=== PATIENT | male | born 1945 | race Caucasian/White ===

== ENCOUNTER → 2017-08-12 10:24 | Outpatient (CLI) | payer MEDICARE, BC, OTHER, SELFPAY ==
[2017-08-12 12:52] LABS: AST(SGOT) 24 U/L (15-37); Alanine Aminotransfer ALT/SGPT 33 U/L (16-61); Anion Gap 7 (5-15); BUN 29 mg/dL (7-18); BUN/Creat Ratio 22.3 RATIO (10-20); Calcium,Total 9.2 mg/dL (8.5-10.1); Chloride 100 mmol/L (98-107); Cholesterol 148 mg/dL (200); EST Glomerular Filtration Rate 58 mL/min (>60); Est Glom Filt Rate - Afr Amer 70 mL/min (>60); Glucose 131 mg/dL (74-106); High Density Lipoprotein 40 mg/dL; Potassium 3.9 mmol/L (3.5-5.1); Sodium Level 138 mmol/L (136-145); Triglycerides 162 mg/dL; Very Low Density Lipoprotein 32 mg/dL (5-40)
== END ==
PROVIDERS: Family Provider Family Medicine; PCP Family Medicine; Visit Provider Family Medicine
DX: E78.5 Hyperlipidemia, unspecified (principal); I10 Essential (primary) hypertension
CPT/HCPCS: 36415; 80048; 80061; 84450; 84460

== ENCOUNTER → 2017-11-01 07:40 | Outpatient (CLI) | payer MEDICARE, BC, OTHER, SELFPAY ==
--- NOTE | 2017-11-01 09:09 | RAD_ITS ---
STUDY: X-RAY CHEST REASON FOR EXAM: Male, 72 years old. Chronic cough TECHNIQUE: PA and lateral views of the chest. COMPARISON: 12/06/2015 FINDINGS: There are interstitial fibrotic changes of the lungs. There is no demonstrated pleural abnormality. Normal size heart. Normal mediastinum and vince. Normal visualized pulmonary arteries. Normal visualized aortic arch and descending thoracic aorta. There are diffuse degenerative changes of the visualized thoracic spine. Normal visualized ribs, clavicles, and shoulders. There is no demonstrated abnormality of the visualized soft tissue structures of the upper abdomen. RAD/Chest PA and Lateral IMPRESSION: Degenerative changes, as described above. No demonstrated acute cardiopulmonary process. Electronically Signed: Ben Valderrama MD at 10:34 EDT , Service support ,
[2017-11-01 09:46] LABS: T4 Total, Thyroxin 9.9 ug/dL (4.5-12.1); Thyroid Stim Hormone (TSH) 1.94 uIU/mL (0.358-3.74)
--- NOTE | 2017-11-01 15:43 | PFTCOMP ---
COMPLETE PULMONARY FUNCTION TEST INTERPRETATION Brief HPI: Patient is a 72 year old male, currently under the care of Dr. Alba, who presents to [facility] for complete pulmonary function tests secondary to diagnosis of high-risk med use. Respiratory therapist reports good effort and reproducible results. Interpretation: Forced expiration spirometry shows no large airways obstructive ventilatory defect with an FEV1 of 84% predicted. There is no significant bronchodilator response by ATS criteria. Spirograms are of good quality and plateau slowly, indicating slowly emptying areas of the lungs. The respiratory flow volume loop shows decreased expiratory flow rates at high lung volumes consistent with small airways obstruction. Lung volumes by body plethysmography show a normal total lung capacity at 7.24 L, 116% predicted. All other lung volumes are within normal limits. Diffusion capacity by carbon monoxide is normal at 110% predicted. The airway resistance is normal. Compared to previous pulmonary function tests from 04/29/2016, there has been a significant reduction in FEV1. Impression: These pulmonary function tests are grossly within normal limits. There has been a significant decrease in FEV1 compared to previous. There are some stigmata of small airways disease.
--- NOTE | 2017-11-01 15:47 | PFTCOMP_ITS ---
COMPLETE PULMONARY FUNCTION TEST INTERPRETATION Brief HPI: Patient is a 72 year old male, currently under the care of Dr. Alba, who presents to [facility] for complete pulmonary function tests secondary to diagnosis of high-risk med use. Respiratory therapist reports good effort and reproducible results. Interpretation: Forced expiration spirometry shows no large airways obstructive ventilatory defect with an FEV1 of 84% predicted. There is no significant bronchodilator response by ATS criteria. Spirograms are of good quality and plateau slowly, indicating slowly emptying areas of the lungs. The respiratory flow volume loop shows decreased expiratory flow rates at high lung volumes consistent with small airways obstruction. Lung volumes by body plethysmography show a normal total lung capacity at 7.24 L , 116% predicted. All other lung volumes are within normal limits. Diffusion capacity by carbon monoxide is normal at 110% predicted. The airway resistance is normal. Compared to previous pulmonary function tests from 04/29/2016, there has been a significant reduction in FEV1. Impression: These pulmonary function tests are grossly within normal limits. There has been a significant decrease in FEV1 compared to previous. There are some stigmata of small airways disease.
== END ==
PROVIDERS: Family Provider Family Medicine; PCP Family Medicine; Visit Provider Internal Medicine Cardiovascular Disease
DX: I48.0 Paroxysmal atrial fibrillation (principal); Z79.899 Other long term (current) drug therapy
CPT/HCPCS: 36415; 71046; 84436; 84443; 94060; 94726; 94729

== ENCOUNTER → 2018-02-13 09:47 | Outpatient (CLI) | payer MEDICARE, BC, OTHER, SELFPAY ==
[2018-02-13 12:19] LABS: Microalbumin,Random Urine 35.9 mg/L (NO RANGE EST.); Microalbumin:Creatinine Ratio 48.5 mg/g CRE (<30 mg/g CRE)
[2018-02-13 12:26] LABS: Hemoglobin A1c 7.2 % (4.2-6.3)
[2018-02-13 12:28] LABS: AST(SGOT) 23 U/L (15-37); Alanine Aminotransfer ALT/SGPT 31 U/L (16-61); Albumin, Serum 3.5 g/dL (3.2-5.0); Alkaline Phosphatase 83 U/L (45-117); Anion Gap 7 (5-15); BUN 22 mg/dL (7-18); BUN/Creat Ratio 15.6 RATIO (10-20); Bilirubin, Direct 0.14 mg/dL (0.00-0.30); Calcium,Total 8.9 mg/dL (8.5-10.1); Chloride 102 mmol/L (98-107); Cholesterol 147 mg/dL (200); Creatinine, Serum 1.41 mg/dL (0.70-1.30); EST Glomerular Filtration Rate 53 mL/min (>60); Est Glom Filt Rate - Afr Amer 64 mL/min (>60); Globulin 3.9 g/dL (2.2-4.2); Glucose 196 mg/dL (74-106); High Density Lipoprotein 36 mg/dL; Potassium 4.2 mmol/L (3.5-5.1); Protein, Total 7.4 g/dL (6.4-8.2); Sodium Level 138 mmol/L (136-145); Triglycerides 164 mg/dL; Very Low Density Lipoprotein 33 mg/dL (5-40)
== END ==
PROVIDERS: Family Provider Family Medicine; PCP Family Medicine; Visit Provider Family Medicine
DX: E11.9 Type 2 diabetes mellitus without complications (principal); I10 Essential (primary) hypertension
CPT/HCPCS: 36415; 80048; 80061; 80076; 82043; 82570; 83036

== ENCOUNTER → 2018-08-14 10:35 | Outpatient (CLI) | payer MEDICARE, BC, OTHER, SELFPAY ==
[2018-07-04 10:01] VITALS: BMI 30.9
[2018-08-14 12:48] LABS: AST(SGOT) 27 U/L (15-37); Alanine Aminotransfer ALT/SGPT 32 U/L (16-61); Anion Gap 3 (5-15); BUN 17 mg/dL (7-18); BUN/Creat Ratio 12.8 RATIO (10-20); Calcium,Total 9.2 mg/dL (8.5-10.1); Chloride 102 mmol/L (98-107); Cholesterol 159 mg/dL (200); Creatinine, Serum 1.33 mg/dL (0.70-1.30); EST Glomerular Filtration Rate 56 mL/min (>60); Est Glom Filt Rate - Afr Amer 68 mL/min (>60); Glucose 153 mg/dL (74-106); High Density Lipoprotein 40 mg/dL; Potassium 4.3 mmol/L (3.5-5.1); Sodium Level 137 mmol/L (136-145); Triglycerides 170 mg/dL; Very Low Density Lipoprotein 34 mg/dL (5-40)
== END ==
PROVIDERS: Family Provider Family Medicine; PCP Family Medicine; Referring Provider Family Medicine; Visit Provider Family Medicine
DX: E11.9 Type 2 diabetes mellitus without complications (principal); E78.00 Pure hypercholesterolemia, unspecified
CPT/HCPCS: 36415; 80048; 80061; 83036; 84450; 84460

== ENCOUNTER → 2018-08-21 07:35 | Outpatient (CLI) | payer MEDICARE, BC, OTHER, SELFPAY ==
[2018-07-04 10:01] VITALS: BMI 30.9
--- NOTE | 2018-08-21 07:44 | CDU_ITS ---
Reason For Study: STENOSIS Rt. Velocities/BP Lt. Velocities/BP Prox CCA 44.6/10.7 cm/sec. Prox CCA 66.2/17.8 cm/sec. Mid CCA 62.9/18.7 cm/sec. Mid CCA 65.0/18.9 cm/sec. Dist CCA 44.5/18.7 cm/sec. Dist CCA 67.2/20.0 cm/sec. Prox ICA 73.9/18.7 cm/sec. Prox ICA 60.6/23.3 cm/sec. Mid ICA 55.5/19.9 cm/sec. Mid ICA 49.7/24.4 cm/sec. Dist ICA 60.4/18.7 cm/sec. Dist ICA 37.6/13.9 cm/sec. Rt. ICA/CCA = 73.9/62.9=1.2. Lt. ICA/CCA = 60.6/67.2=0.9. Prox ECA 86.2/18.6 cm/sec. Prox ECA 49.7/10.1 cm/sec. Rt. Vert. 39.8/15.6 cm/sec. Lt. Vert. 29.5/14.4 cm/sec. Right Extracranial There is heterogeneous, irregular atherosclerotic plaque noted in the right common carotid artery. There is heterogeneous, irregular atherosclerotic plaque noted in the right internal carotid artery. There is no significant atherosclerotic plaque noted in the right external carotid artery. Antegrade flow is noted in the right vertebral artery. There is heterogeneous, irregular atherosclerotic plaque noted in the left bulb. Left Extracranial There is homogeneous, smooth atherosclerotic plaque noted in the left common carotid artery. There is heterogeneous, irregular atherosclerotic plaque noted in the left internal carotid artery. There is heterogeneous, smooth atherosclerotic plaque noted in the left external carotid artery. Antegrade flow is noted in the left vertebral artery. There is heterogeneous, irregular atherosclerotic plaque noted in the left bulb. Interpretation Summary Mild (<50%) stenosis right extracranial internal carotid. Mild (<50%) stenosis left extracranial internal carotid. Flow within the vertebral arteries is antegrade bilaterally. Heterogeneous, irregular atherosclerotic plaque is noted in the carotid bulbs bilaterally, which does not appear to be hemodynamically significant. Ordering Physician: Kasey Masters Referring Physician: Kasey Masters Performed By: Francia Kee, XIOMARA, RVT
== END ==
PROVIDERS: Family Provider Family Medicine; PCP Family Medicine; Referring Provider Family Medicine; Visit Provider Family Medicine
DX: I65.21 Occlusion and stenosis of right carotid artery (principal)
CPT/HCPCS: 93880

== ENCOUNTER 2018-12-16 11:31 | Emergency (ER) | payer MEDICARE, BC, OTHER, SELFPAY ==
[2018-07-04 10:01] VITALS: BMI 30.9
[2018-12-16 11:32] VITALS: BP 105/80; PULSE 95; RESP 18; TEMP 36.6; O2SAT 98; BMI 29.7
--- NOTE | 2018-12-16 12:17 | ED.VISSUMM ---
- ER Visit Summary Date of Service: 12/16/18 Chief Complaint: Allergic reaction History of Present Illness: The patient is a 73 M who presents with possible allergic reaction that began last night. Patient states he felt his tongue and lip were swollen last night. Patient states the swelling is improved today. Patient also admits to some itching and tingling in his hands. Patient denies any hives. Patient denies any difficulty breathing or difficulty swallowing. Patient states nothing makes it better or worse. Patient did have some recent diarrhea but currently denies any abdominal pain. Patient denies any nausea or vomiting. Patient denies any fevers or chills. Patient is on lisinopril. Physical Examination: Vital signs are stable. Patient is afebrile. Patient is in no acute distress. Oral mucosa is pink and moist. Oropharynx is clear. Airway is patent. There is minimal edema of the tongue and lips. Neck is supple. Trachea is midline. There is no JVD. Heart was regular rate and rhythm. Lungs are clear and equal bilaterally. Skin is warm dry. There are no urticaria noted. Cranial nerves II through XII are intact. There are no focal motor or sensory deficits noted. Emergency Department Course and Treatment: Patient was given a dose of prednisone here. Patient was given a prescription for prednisone. The edema of his tongue and lips does not appear to be angioedema at this time. It is only mild. There are no urticaria to suggest complete anaphylactic reaction. Since the patient has not had anything new recently it is unclear what the etiology of this is. It may be related to the lisinopril but I am not sure at this time. Patient was instructed to follow-up with his primary care physician in 2 to 3 days for reevaluation. Patient was instructed to return if the swelling is worse in any way. Patient and family understood and were agreeable with the plan. All questions were answered. Disposition: Discharge home Impression: Allergic reaction This note was generated with [employer] dictation software. It may contain incorrect words, spelling, and punctuation that were not noted in review of the chart prior to signing ED Disposition - Plan for ED Patient: Disposition: Home or Assisted Living Diagnosis: Allergic reaction Instructions: ALLERGIC REACTION, Other (General) Prescriptions: predniSONE tablet 60 mg PO DAILY #12 tab Transmission Status: Pending to [facility]/pharmacy #[id number] Referrals: Kasey Masters MD [Primary Care Provider] - 2 Days
[2018-12-16] MEDS: predniSONE 20 MG Tablet 60 MG PO (12:21)
[2018-12-16 12:35] VITALS: BP 113/70; PULSE 88; RESP 16; O2SAT 97
== END 2018-12-16 12:36 | disposition home or self-care (01) ==
LOC: ED 12:21
PROVIDERS: Emergency Provider Emergency Medicine; Family Provider Family Medicine; PCP Family Medicine
DX: T78.40XA Allergy, unspecified, initial encounter (principal); X58.XXXA Exposure to other specified factors, initial encounter; I49.9 Cardiac arrhythmia, unspecified; Z79.82 Long term (current) use of aspirin; Z79.01 Long term (current) use of anticoagulants; Z79.899 Other long term (current) drug therapy; Z86.73 Personal history of transient ischemic attack (TIA), and cerebral infarction without residual deficits
CPT/HCPCS: 99283

== ENCOUNTER 2018-12-16 20:15 | Emergency (ER) | payer MEDICARE, BC, OTHER, SELFPAY ==
[2018-12-16 11:32] VITALS: BMI 29.7
[2018-12-16 20:16] VITALS: BP 104/64; PULSE 75; RESP 15; TEMP 36.3; O2SAT 97; BMI 29.8
--- NOTE | 2018-12-16 20:55 | ED.VISSUMM ---
- ER Visit Summary Date of Service: 12/16/18 Chief Complaint: Hives History of Present Illness: The patient is a 73 M who presents with hives that began today. Patient was seen here earlier today for some swelling of his tongue and upper lip. Patient was given a dose of prednisone earlier today and was given a prescription for prednisone. Patient states that tonight he noted hives on his upper and lower extremities as well as his chest and abdomen. Patient denies any difficulty breathing or difficulty swallowing. Patient denies any swelling of his tongue or lips at this time. Patient denies any new exposures such as new foods, soaps, shampoos, laundry detergents, or fabric softeners, etc. Physical Examination: Vital signs are stable. Patient is afebrile. Patient is in no acute distress. Skin is warm and dry. There are urticaria noted over the upper extremities and proximal lower extremities. There are also some urticaria noted over the chest and abdomen. Oral mucosa is pink and moist. Oropharynx is clear. Airway is patent. There is no edema of the lips or tongue. There are no vesicles or pustules noted. There are no petechia noted. There are no lesions on the palms or soles. Heart was regular rate and rhythm. Lungs are clear and equal bilaterally. Abdomen is soft and nontender. Cranial nerves II through XII are intact. There are no focal motor or sensory deficits noted. Emergency Department Course and Treatment: Patient was given Benadryl and Pepcid here. Patient was not given any steroids due to the fact that he had prednisone earlier today. Patient states his hives were better on reevaluation. Patient was having some nausea and vomiting on reevaluation. Patient was given a dose of Zofran here. Repeat abdominal exam was nontender. Bowel sounds were normal. Patient was instructed to take Benadryl as needed for any itching or hives. Patient was instructed to continue his prednisone as previously prescribed. Patient was instructed to follow-up with his primary care physician in 5 to 7 days. Patient and his understood and were agreeable with the plan. All questions were answered. Disposition: Discharge home Impression: Urticaria This note was generated with [employer] dictation software. It may contain incorrect words, spelling, and punctuation that were not noted in review of the chart prior to signing ED Disposition - Plan for ED Patient: Disposition: Home or Assisted Living Diagnosis: Urticaria Instructions: ALLERGIC REACTION, Other (General) Prescriptions: Ondansetron [Zofran Odt] 4 mg PO Q8H PRN PRN #10 tab PRN Reason: Nausea Prescription Printed Referrals: Kasey Masters MD [Primary Care Provider] - 5-7 Days
[2018-12-16] MEDS: DiphenhydrAMINE 50 MG/ML Syringe 25 MG IV (21:00)
[2018-12-16] MEDS: Ondansetron 4 MG/2 ML Vial IV (22:00)
[2018-12-16 22:02] VITALS: PULSE 79; O2SAT 95
[2018-12-16 22:30] VITALS: BP 172/89; PULSE 129; RESP 16; O2SAT 95
== END 2018-12-16 22:37 | disposition home or self-care (01) ==
PROVIDERS: Emergency Provider Emergency Medicine; Family Provider Family Medicine; PCP Family Medicine
DX: L50.9 Urticaria, unspecified (principal); R11.2 Nausea with vomiting, unspecified; I48.91 Unspecified atrial fibrillation; T78.40XA Allergy, unspecified, initial encounter; X58.XXXA Exposure to other specified factors, initial encounter; Z79.01 Long term (current) use of anticoagulants; Z79.82 Long term (current) use of aspirin; Z79.899 Other long term (current) drug therapy; Z86.73 Personal history of transient ischemic attack (TIA), and cerebral infarction without residual deficits
CPT/HCPCS: 96374; 96375; 99283; A4216; J2405; J3490

== ENCOUNTER → 2019-01-19 09:46 | Outpatient (CLI) | payer MEDICARE, BC, OTHER, SELFPAY ==
[2019-01-18 13:17] VITALS: BMI 28.8
--- NOTE | 2019-01-19 09:50 | RAD_ITS ---
STUDY: X-RAY - RIGHT FOOT CLINICAL: Male, 73 years old. Posttraumatic pain and swelling TECHNIQUE: 4 view(s) of the foot. COMPARISON: None. FINDINGS: Normal talus, and tarsal bones. Small plantar calcaneal spur Normal visualized subtalar, talonavicular, calcaneocuboid, tarsal and tarsometatarsal articulations. Normal metatarsi. Normal metatarsophalangeal joint of the great toe. Normal tibial and fibular sesamoid bones. Normal interphalangeal joint of the great toe. Normal phalanges of the great toe. Normal second through fifth metatarsophalangeal joints. Normal interphalangeal joints and phalanges of the lesser toes. Mild diffuse soft tissue swelling RAD/Foot min 3 Views IMPRESSION: Mild diffuse soft tissue swelling without evidence for acute fracture Electronically Signed: Ron Loaiza MD at 17:34 EDT , Service support ,
== END ==
PROVIDERS: Family Provider Family Medicine; PCP Family Medicine; Referring Provider Family Medicine; Visit Provider Family Medicine
DX: M79.671 Pain in right foot (principal)
CPT/HCPCS: 73630

== ENCOUNTER → 2019-02-15 08:34 | Outpatient (CLI) | payer MEDICARE, BC, OTHER, SELFPAY ==
[2019-01-18 13:17] VITALS: BMI 28.8
[2019-02-15 12:32] LABS: International Normalized Ratio 2.5; Prothrombin Time (Protime)PT. 26.9 SECONDS (11.7-14.9)
[2019-02-15 12:43] LABS: AST(SGOT) 36 U/L (15-37); Alanine Aminotransfer ALT/SGPT 50 U/L (16-61); Albumin, Serum 3.4 g/dL (3.2-5.0); Alkaline Phosphatase 100 U/L (45-117); Anion Gap 8 (5-15); BUN 25 mg/dL (7-18); BUN/Creat Ratio 18.1 RATIO (10-20); Bilirubin, Direct 0.15 mg/dL (0.00-0.30); Chloride 104 mmol/L (98-107); Cholesterol 127 mg/dL (200); Creatinine, Serum 1.38 mg/dL (0.70-1.30); EST Glomerular Filtration Rate 54 mL/min (>60); Est Glom Filt Rate - Afr Amer 65 mL/min (>60); Globulin 3.5 g/dL (2.2-4.2); Glucose 144 mg/dL (74-106); High Density Lipoprotein 32 mg/dL; Protein, Total 6.9 g/dL (6.4-8.2); Sodium Level 141 mmol/L (136-145); Thyroid Stim Hormone (TSH) 2.19 uIU/mL (0.358-3.74); Triglycerides 163 mg/dL; Very Low Density Lipoprotein 33 mg/dL (5-40)
== END ==
PROVIDERS: Family Provider Family Medicine; PCP Family Medicine; Referring Provider Family Medicine; Visit Provider Family Medicine
DX: I48.91 Unspecified atrial fibrillation (principal); E11.9 Type 2 diabetes mellitus without complications
CPT/HCPCS: 80048; 80061; 80076; 84443; 85610

== ENCOUNTER → 2019-02-19 14:19 | Outpatient (CLI) | payer MEDICARE, BC, OTHER, SELFPAY ==
[2019-01-18 13:17] VITALS: BMI 28.8
[2019-02-19 15:38] LABS: Microalbumin,Random Urine 29.5 mg/L (NO RANGE EST.); Microalbumin:Creatinine Ratio 28.1 mg/g CRE (<30 mg/g CRE)
== END ==
PROVIDERS: Family Provider Family Medicine; PCP Family Medicine; Referring Provider Family Medicine; Visit Provider Family Medicine
DX: I48.91 Unspecified atrial fibrillation (principal); E11.9 Type 2 diabetes mellitus without complications
CPT/HCPCS: 82043; 82570

== ENCOUNTER → 2020-02-04 11:01 | Outpatient (CLI) | payer MEDICARE, BC, OTHER, SELFPAY ==
[2020-01-14 10:07] VITALS: BMI 29.3
[2020-02-04 12:53] LABS: AST(SGOT) 40 U/L (15-37); Alanine Aminotransfer ALT/SGPT 49 U/L (16-61); Albumin, Serum 3.6 g/dL (3.2-5.0); Alkaline Phosphatase 129 U/L (45-117); Anion Gap 7 (5-15); BUN 22 mg/dL (7-18); BUN/Creat Ratio 16.5 RATIO (10-20); Bilirubin, Direct 0.26 mg/dL (0.00-0.30); Calcium,Total 9.6 mg/dL (8.5-10.1); Chloride 101 mmol/L (98-107); Cholesterol 115 mg/dL (200); Creatinine, Serum 1.33 mg/dL (0.70-1.30); EST Glomerular Filtration Rate 56 mL/min (>60); Est Glom Filt Rate - Afr Amer 68 mL/min (>60); Globulin 3.9 g/dL (2.2-4.2); Glucose 202 mg/dL (74-106); High Density Lipoprotein 28 mg/dL; Potassium 4.1 mmol/L (3.5-5.1); Protein, Total 7.5 g/dL (6.4-8.2); Sodium Level 138 mmol/L (136-145); Triglycerides 149 mg/dL; Very Low Density Lipoprotein 30 mg/dL (5-40)
== END ==
PROVIDERS: PCP Family Medicine; Referring Provider Family Medicine; Visit Provider Family Medicine
DX: E11.9 Type 2 diabetes mellitus without complications (principal); I10 Essential (primary) hypertension
CPT/HCPCS: 36415; 80048; 80061; 80076

== ENCOUNTER → 2020-02-07 16:32 | Outpatient (CLI) | payer MEDICARE, BC, OTHER, SELFPAY ==
[2020-01-14 10:07] VITALS: BMI 29.3
[2020-02-07 18:39] LABS: Microalbumin,Random Urine 60.1 mg/L (NO RANGE EST.); Microalbumin:Creatinine Ratio 65.3 mg/g CRE (<30 mg/g CRE)
== END ==
PROVIDERS: PCP Family Medicine; Referring Provider Family Medicine; Visit Provider Family Medicine
DX: E11.9 Type 2 diabetes mellitus without complications (principal)
CPT/HCPCS: 82043; 82570

== ENCOUNTER → 2020-07-16 14:27 | Outpatient (CLI) | payer MEDICARE, BC, OTHER, SELFPAY ==
[2020-07-11 10:43] VITALS: BMI 27.4
[2020-07-16 17:44] LABS: Absolute Lymphocyte Count 1.52 X10^3/uL (0.83-4.51); Absolute Neutrophil Count 3.6 X10^3/uL (2.0-7.7); Basophil# 0.06 X10^3/uL; Eosinophil# 0.08 X10^3/uL; Eosinophils% 1.3 % (0-5); Hematocrit 49.5 % (40-54); Hemoglobin 15.5 g/dL (13.0-16.5); Lymphocyte # 1.52 X10^3/ul (4.0); Lymphocyte % 25.1 % (19-41); Mean Corp Hgb Conc 31.3 g/dL (32-36); Mean Corpuscular Hgb 30.2 pg (27.0-32.0); Mean Corpuscular Volume 96.3 fL (80-94); Mean Platelet Vol. 12.1 fl (6.2-12.0); Monocyte% 13.2 % (0-10); NRBC Flagged by Analyzer 0 % (0-5); Neutrophil # 3.58 X10^3/uL (2.7-7.7); Neutrophil % 59.1 % (47-70); Platelet Count 182 K/mm3 (150-450); RBC Distribution Width SD 56.7 fl (35.1-43.9); Red Blood Count 5.14 M/mm3 (4.6-6.2); White Blood Count 6.1 K/mm3 (4.4-11.0)
[2020-07-16 18:06] LABS: Erythrocyte Sedimentation Rate 3 mm/hr (0-20)
[2020-07-16 18:43] LABS: ALB/GLOB Ratio 0.9 RATIO (0.9-2.4); AST(SGOT) 32 U/L (15-37); Alanine Aminotransfer ALT/SGPT 41 U/L (16-61); Albumin, Serum 3.7 g/dL (3.2-5.0); Alkaline Phosphatase 159 U/L (45-117); Anion Gap 7 (5-15); BUN 22 mg/dL (7-18); BUN/Creat Ratio 16.7 RATIO (10-20); Calcium,Total 9.7 mg/dL (8.5-10.1); Chloride 99 mmol/L (98-107); Creatinine, Serum 1.32 mg/dL (0.70-1.30); EST Glomerular Filtration Rate 56 mL/min (>60); Est Glom Filt Rate - Afr Amer 68 mL/min (>60); Globulin 3.9 g/dL (2.2-4.2); Glucose 198 mg/dL (74-106); Potassium 3.9 mmol/L (3.5-5.1); Prealbumin 22.2 mg/dL (20.0-40.0); Protein, Total 7.6 g/dL (6.4-8.2); Sodium Level 136 mmol/L (136-145)
[2020-07-16 18:46] LABS: Hemoglobin A1c 7.7 % (3.8-5.6)
== END ==
PROVIDERS: PCP Family Medicine; Referring Provider Nurse Practitioner Family; Visit Provider Nurse Practitioner Family
DX: T81.89XA Other complications of procedures, not elsewhere classified, initial encounter (principal); Z79.899 Other long term (current) drug therapy
CPT/HCPCS: 36415; 80053; 83036; 84134; 85025; 85652; 86140

== ENCOUNTER 2020-07-18 10:30 | Outpatient (RCR) | payer MEDICARE, BC, OTHER, SELFPAY ==
[2020-01-14 10:07] VITALS: BMI 29.3
[2020-07-11 10:43] VITALS: BP 166/103; PULSE 103; RESP 20; TEMP 36.4; BMI 27.4
--- NOTE | 2020-07-11 13:46 | PCM.WC.HP ---
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 Code(s): E11.622 - Type 2 diabetes mellitus with other skin ulcer; L97.929 - Non-pressure chronic ulcer of unspecified part of left lower leg with unspecified severity (2) Diabetes mellitus, type II Status: Chronic Qualifiers: Diabetes mellitus termite renewal inspector insulin use: without termite renewal inspector use Diabetes mellitus complication status: with skin complications Diabetes mellitus complication detail: with other skin ulcer Qualified Code(s): E11.622 - Type 2 diabetes mellitus with other skin ulcer Code(s): E11.9 - Type 2 diabetes mellitus without complications (3) Chronic anticoagulation Status: Chronic Code(s): Z79.01 - termite exterminator helper (current) use of anticoagulants (4) Essential hypertension Status: Chronic Code(s): I10 - Essential (primary) hypertension (5) HLD (hyperlipidemia) Status: Chronic Qualifiers: Code(s): E78.5 - Hyperlipidemia, unspecified (6) Paroxysmal atrial fibrillation Status: Chronic Code(s): I48.0 - Paroxysmal atrial fibrillation History of Present Illness Date of Service: 07/11/20 Chief Complaint: Left calf ulcer History of Wound: The patient presents to the wound healing center today (07/11/2020) for an initial evaluation of his left calf ulcer. He sees Dr. Masters for his primary care management, and was referred to the wound healing center by her. Patient has a past medical history significant for type 2 diabetes mellitus, essential hypertension, hyperlipidemia, paroxysmal atrial fibrillation, ischemic stroke, and chronic anticoagulation with warfarin. Patient states that around March or April 2020, he developed an ulceration of his left calf. He is unsure of any causative events/factors. The ulcer was present for several weeks before he sought treatment. His primary care provider had him using triple antibiotic ointment and nonadherent dressings for wound care. He has not been on any recent antibiotics. He denies drainage from his ulcer. The patient denies any fever, chills, nausea, vomiting, or diarrhea. Denies any increasing pain, redness, swelling, or purulent/malodorous drainage from affected area. Past Medical History Past Medical History: Chronic Problems (Last Reviewed 07/16/19 @ 10:06 by Mona Thomas) Diabetic ulcer of left lower leg (Chronic) Chronic anticoagulation (Chronic) Essential hypertension (Chronic) Paroxysmal atrial fibrillation (Chronic) Right carotid bruit (Chronic) Obese (Chronic) HLD (hyperlipidemia) (Chronic) Diabetes mellitus, type II (Chronic) HAY (obstructive sleep apnea) (Chronic) Surgical History: tonsillectomy Allergies/Adverse Reactions: Allergies lisinopril Allergy (Verified 07/11/20 11:14) Angioedema prednisone Allergy (Verified 07/11/20 11:14) Hives Home Medications: Ambulatory Orders Medication Instructions Recorded Aspirin 325 mg PO QHS 12/06/15 Atorvastatin Calcium [Lipitor] 20 mg PO DAILY 12/06/15 Cholecalciferol (VIT D3) [Vitamin 1,000 unit PO DAILY 12/06/15 D3] Multivitamin [Daily Multiple 1 ea PO DAILY 12/06/15 Vitamin] Potassium Chloride [Klor-Con 10] 10 meq PO QODAY 12/06/15 metFORMIN HCl [Glucophage] 1,000 mg PO DAILY 12/06/15 Warfarin [Coumadin ([facility]KC)] 5 mg PO DAILY #30 tab 12/09/15 lisinopril 20 1 tab PO QDAY 09/23/17 mg-hydrochlorothiazide 12.5 mg tablet colchicine 0.6 mg tablet 0.6 mg PO BID 07/16/19 nitroglycerin 0.4 mg sublingual 0.4 mg SUBLINGUAL Q5-15M PRN #25 01/10/20 tablet tab metoprolol tartrate 50 mg tablet 50 mg PO BID #180 tab 03/17/20 - Family History Maternal Family History: Family History (Last Reviewed 07/16/19 @ 10:06 by Mona Thomas) Father CVA (cerebral vascular accident) Mother TIA (transient ischemic attack) Sister Hypertension Stroke Paternal Family History: Family History (Last Reviewed 07/16/19 @ 10:06 by Mona Thomas) Father CVA (cerebral vascular accident) Mother TIA (transient ischemic attack) Sister Hypertension No pertinent history Smoking Status: Never smoker Review of Systems Constitutional: Denies: Chills, Fever Eyes: Denies: Conjunctivae Inflammation, Eyelid Inflammation, Redness HEENT: Denies: Difficulty Hearing, Difficulty Swallowing Cardiovascular: Reports: Edema - Mild edema of left lower extremity. Denies: Chest Pain Respiratory: Denies: Cough, Shortness of Breath Gastrointestinal: Denies: Diarrhea, Nausea, Vomiting Genitourinary: Denies: Dysuria, Hematuria Musculoskeletal: Denies: Leg Pain Skin: Reports: Wounds - Left calf ulcer Neurological: Denies: Slurred speech, Confusion, Focal weakness Endocrine: Reports: - - Diabetes mellitus Hematologic/ Lymphatic: Reports: Easy Bruising, Easy Bleeding - On warfarin - Physical Exam Vital Signs Temp Pulse Resp BP 97.6 F L 103 H 20 H 166/103 H 07/11/20 10:43 07/11/20 10:43 07/11/20 10:43 07/11/20 10:43 General: Alert, Cooperative, No apparent distress HEENT: Atraumatic Oral: Moist Mucosa Neck: Supple, Trachea Midline Lungs: Clear to auscultation, Normal air movement, No rhonchi, No wheeze, No rales Cardiovascular: Irregular Rate Abdomen: Bowel Sounds Present, Soft Extremities: No clubbing, No cyanosis, Capillary Refill Less than 3 Seconds, Edema - 1+ pitting edema of right lower extremity, Peripheral Pulses Normal Skin: Ulcer/ Wound - Ulcer of left calf with copious amounts of devitalized tissue and eschar present. Subcutaneous layer exposed. No tunneling, undermining, or probing to bone. No periulcer erythema, warmth or tenderness. No purulent/malodorous drainage. Wound Measurements and Assessment WC - Nurse 1 - General Ulcer Measurement Start: 07/11/20 10:43 Freq: Status: Active Protocol: Activity Type Activity Date Activity User E-Sign Co-Sign Detail Recorded Client Recorded Date Recorded By Document 07/11/20 10:43 DL [id number] 07/11/20 11:11 DL 07/11/20 10:43 Wound Center Nurse 1 [Ulcer Assessment] #1 LLE Post -Current Size (cm) - Length 3.8 -Current Size (cm) - Width 2 -Current Size (cm) - Depth 0.1 -Total Square Cm 7.6 -Photo Taken Yes -Exudate Amt None Present -Wound Margin Thickened -Granulation Amt None Present (0 %) -Necrosis Amt Large (67-100%) -Necrotic Tissue Type Eschar -Structure Exposed N/A -Texture (Tasneem-wound Skin Appearance) Localized Edema ,Scarring -Moisture (Tasneem-wound Skin Appearance No Abnormality ) -Color (Tasneem-wound Skin Appearance) Erythema -Temperature (Tasneem-wound Skin No Abnormality Appearance) (Pt Warm) -Tenderness on Palpation (Tasneem-wound No Skin Appearance) -Ulcer Cleansing Wound Cleanser -Foul Odor after Cleansing No -Anesthetic Used 4% Lidocaine Solution [Edema Assessment] -Left Calf (cm) 36 -Left Ankle (cm) 21 WC - Nurse 3 - General Ulcer D/C NN Start: 07/11/20 10:43 Freq: Status: Active Protocol: Activity Type Activity Date Activity User E-Sign Co-Sign Detail Recorded Client Recorded Date Recorded By Document 07/11/20 12:27 MS [id number] 07/11/20 12:28 MS 07/11/20 12:27 Wound Care Nurse 3 [Wound Dressing] #1 LLE Post -Ulcer Cleansing Wound Cleanser -Primary Dressing Applied Aquacel AG 4x4 -Primary Dressing Covered/Secured Dry Gauze & with Roll Gauze, Secured with Tape -Aquacel AG 4x4 1 [Compression Applied] Left -Size of Tubigrip Used Size E Pain Scale: 0-10 Numeric [Pain] -Is Patient Pain Free? Yes Musculoskeletal: Tenderness - On debridement of ulcer Neurological: Neuro grossly intact Psych/Mental Status: Normal Affect, Appropriate Debridement Note Post-Debridement Measurements/Treatment - Nurse 3 - General Ulcer D/C NN Start: 07/11/20 10:43 Freq: Status: Active Protocol: Activity Type Activity Date Activity User E-Sign Co-Sign Detail Recorded Client Recorded Date Recorded By Document 07/11/20 12:27 MS [id number] 07/11/20 12:28 MS 07/11/20 12:27 Wound Care Nurse 3 #1 LLE Post -Ulcer Cleansing Wound Cleanser -Primary Dressing Applied Aquacel AG 4x4 -Primary Dressing Covered/Secured with Dry Gauze & Roll Gauze, Secured with Tape -Aquacel AG 4x4 1 Left -Size of Tubigrip Used Size E Pain Scale: 0-10 Numeric Is Patient Pain Free? Yes Wound debrided: Left calf ulcer Laterality: Left Type of Debridement: Excisional debridement Anesthesia Used: 4% Lidocaine Solution, Cetacaine Depth: in the subcutaneous layer Percentage of wound debrided: 100 Instrument Used: 7mm curette, Forceps, - - Scissors Tissue Removed: Slough and devitalized tissue, copious amounts of eschar Severity: Fat Layer Exposed Amount of bleeding with debridement: Mild Bleeding Controlled with: Pressure Patient tolerated procedure well Assessment/Plan Active Problems (Last Reviewed 02/24/20 @ 10:06 by Mona Thomas) Diabetic ulcer of left lower leg (Chronic) Chronic anticoagulation (Chronic) Essential hypertension (Chronic) Paroxysmal atrial fibrillation (Chronic) HLD (hyperlipidemia) (Chronic) Diabetes mellitus, type II (Chronic) Assessment: See above Plan: Debridement performed today in clinic. Aquacel Ag applied. A prescription for Santyl was given to the patient. Given the duration of the wound and failure of the wound to respond to standard wound care, we will apply for advanced skin substitutes (puraply, nushield, Apligraf). At home wound-care instructions: Cleanse ulcer daily with antibacterial soap and water. Dry thoroughly. Apply a nickel thick layer of Santyl to the left calf ulcer daily and cover with gauze. Compression: Wear double Tubigrip on right lower extremity. Off-loading: Avoid pressure at the site of the ulcer when seated. Avoid prolonged standing/dangling of legs. When seated, elevate feet at chest level. Walking is encouraged. Diet: Patient encouraged to increase protein and vitamin C intake while taking caution to avoid high carbohydrate and/or sugar intake. Labs/cultures/imaging: Cultures deferred today, as there are no clinical signs or symptoms of infection. We will continue to monitor for infection. Routine baseline labwork ordered. Venous studies ordered. Follow-up: Return to clinic in 1 week for re-evaluation. Return sooner or report to the emergency room should symptoms worsen, or new symptoms arise. Note: [employer] speech recognition emergency medical technician basic software was used to create portions of this document. Sound-alike and misspelled words, as well as other emergency medical technician basic errors may be contained in the documentation. Office Visits / Consults: [id number] OV L4 New [id number]: [id number] Yadira subq tissue 20 sq cm/<
[2020-07-18 10:39] VITALS: BP 139/88; PULSE 89; TEMP 36.1; BMI 27.4
--- NOTE | 2020-07-18 12:44 | PN.PCM_ITS ---
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 use Diabetes mellitus complication status: with skin complications Diabetes mellitus complication detail: with other skin ulcer Qualified Code(s): E11.622 - Type 2 diabetes mellitus with other skin ulcer Code(s): E11.9 - Type 2 diabetes mellitus without complications (3) Chronic anticoagulation Status: Chronic Code(s): Z79.01 - terminal block assembler (current) use of anticoagulants (4) Essential hypertension Status: Chronic Code(s): I10 - Essential (primary) hypertension (5) HLD (hyperlipidemia) Status: Chronic Qualifiers: Code(s): E78.5 - Hyperlipidemia, unspecified (6) Paroxysmal atrial fibrillation Status: Chronic Code(s): I48.0 - Paroxysmal atrial fibrillation Type of Wound Date of Service: 07/18/20 Chief Complaint: Left calf ulcer History of Wound: The patient presents to the wound healing center today (07/11/2020) for an initial evaluation of his left calf ulcer. He sees Dr. Masters for his primary care management, and was referred to the wound healing center by her. Patient has a past medical history significant for type 2 diabetes mellitus, essential hypertension, hyperlipidemia, paroxysmal atrial fibrillation, ischemic stroke, and chronic anticoagulation with warfarin. Patient states that around March or April 2020, he developed an ulceration of his left calf. He is unsure of any causative events/factors. The ulcer was present for several weeks before he sought treatment. His primary care provider had him using triple antibiotic ointment and nonadherent dressings for wound care. He has not been on any recent antibiotics. He denies drainage from his ulcer. The patient denies any fever, chills, nausea, vomiting, or diarrhea. Denies any increasing pain, redness, swelling, or purulent/malodorous drainage from affected area. Progress of Wound: The patient has been compliant with the use of Santyl daily dressing changes to his left lower leg ulcer. The patient denies any fever, chills, nausea, vomiting, or diarrhea. Denies any purulent/malodorous drainage from affected area. There is periulcer erythema and mild edema today. A culture was collected. - Physical Exam Vital Signs Temp Pulse Resp BP 97.0 F L 89 20 H 139/88 H 07/18/20 10:39 07/18/20 10:39 07/11/20 10:43 07/18/20 10:39 General: Alert, Cooperative, No apparent distress Oral: Moist Mucosa Neck: Trachea Midline Lungs: Normal air movement Extremities: No clubbing, No cyanosis, Capillary Refill Less than 3 Seconds, Edema - Mild periulcer edema, Peripheral Pulses Normal Skin: Ulcer/ Wound - Ulcer of left calf with moderate amounts of devitalized tissue and eschar present. Subcutaneous layer exposed. No tunneling, undermining, or probing to bone. Mild periulcer erythema and warmth. No purulent/malodorous drainage. Wound Measurements and Assessment WC - Nurse 1 - General Ulcer Measurement Start: 07/11/20 10:43 Freq: Status: Active Protocol: Activity Type Activity Date Activity User E-Sign Co-Sign Detail Recorded Client Recorded Date Recorded By Document 07/18/20 10:39 JOHNATHON [id number] 07/18/20 10:46 JOHNATHON 07/18/20 10:39 Wound Center Nurse 1 [Ulcer Assessment] #1 LLE Post -Current Size (cm) - Length 3.6 -Current Size (cm) - Width 1.5 -Current Size (cm) - Depth 0.2 -Total Square Cm 5.40 -Exudate Amt Medium -Exudate Type Serosanguineous -Wound Margin Distinct, Outline Attached -Granulation Amt Medium (34-66%) -Granulation Quality Red -Necrosis Amt Medium (34-66%) -Necrotic Tissue Type Adherent Slough -Texture (Tasneem-wound Skin Appearance) Assessed, Scarring -Moisture (Tasneem-wound Skin Appearance No Abnormality, ) Assessed -Color (Tasneem-wound Skin Appearance) No Abnormality -Tenderness on Palpation (Tasneem-wound No Skin Appearance) -Ulcer Cleansing Rinsed/ Irrigated with Saline -Foul Odor after Cleansing No -Anesthetic Used 4% Lidocaine Solution [Edema Assessment] -Left Calf (cm) 38 -Left Ankle (cm) 23 WC - Nurse 2 - General Ulcer CM Notes Start: 07/11/20 10:43 Freq: Status: Active Protocol: Activity Type Activity Date Activity User E-Sign Co-Sign Detail Recorded Client Recorded Date Recorded By Document 07/18/20 11:27 PL [id number] 07/18/20 11:28 PL 07/18/20 11:27 Wound Center Nurse 2 [Procedure/Treatment] #1 LLE Post -Time 10:57 -Correct Patient Yes -Correct Side, Site, Position Yes -Correct Procedure Yes -Procedure Performed Yes -Type of Procedure Debridement -Clinical Debridement Subcutaneous -Tissue Removed Subcutaneous -Post Debridement (cm) - Length 4.4 -Post Debridement (cm) - Width 3.0 -Post Debridement (cm) - Depth 0.6 -Total Square (Post) (cm) 13.20 -Area of Debridement (cm) - Length 4.4 -Area of Debridement (cm) - Width 3.0 -Total Square (Area) (cm) 13.20 -Tunneling No -Undermining/Tunneling No -Circular Undermining No -Wound/Ulcer Outcome Not Healed -Ulcer Cleansing Rinsed/ Irrigated with Saline -Foul Odor after Cleansing No -Bioengineered Tissue No -Bleeding Controlled with Pressure -Treatment Response Procedure Tolerated Well -Debridement - Subq, 1st 20sq cm Yes [See Physician Procedure note for Specifics] Pain Scale: 0-10 Numeric [Pain] -Is Patient Pain Free? Yes - Nurse 3 - General Ulcer D/C NN Start: 07/11/20 10:43 Freq: Status: Active Protocol: Activity Type Activity Date Activity User E-Sign Co-Sign Detail Recorded Client Recorded Date Recorded By Document 07/18/20 11:20 KR [id number] 07/18/20 11:23 KR 07/18/20 11:20 Wound Care Nurse 3 [Wound Dressing] #1 LLE Post -Ulcer Cleansing Rinsed/ Irrigated with Saline -Primary Dressing Applied C Hydrogel ($) -Primary Dressing Covered/Secured Dry Gauze, with Secured with Tape Pain Scale: 0-10 Numeric [Pain] -Is Patient Pain Free? Yes - Visit Discharge [Visit Discharge Information] -Discharge Condition Stable -Ambulatory Status Ambulatory -Transportation Private Auto -Accompanied by Psych/Mental Status: Normal Affect, Appropriate Debridement Note Post-Debridement Measurements/Treatment - Nurse 2 - General Ulcer CM Notes Start: 07/11/20 10:43 Freq: Status: Active Protocol: Activity Type Activity Date Activity User E-Sign Co-Sign Detail Recorded Client Recorded Date Recorded By Document 07/11/20 14:59 PL [id number] 07/11/20 15:01 PL Document 07/18/20 11:27 PL [id number] 07/18/20 11:28 PL 07/11/20 07/18/20 14:59 11:27 Wound Center Nurse 2 #1 LLE Post -Time 11:34 10:57 -Correct Patient Yes Yes -Correct Side, Site, Position Yes Yes -Correct Procedure Yes Yes -Procedure Performed Yes Yes -Type of Procedure Debridement Debridement -Clinical Debridement Subcutaneous Subcutaneous -Tissue Removed Subcutaneous Subcutaneous -Post Debridement (cm) - Length 3.8 4.4 -Post Debridement (cm) - Width 2.6 3.0 -Post Debridement (cm) - Depth 0.4 0.6 -Total Square (Post) (cm) 9.88 13.20 -Area of Debridement (cm) - Length 3.8 4.4 -Area of Debridement (cm) - Width 2.6 3.0 -Total Square (Area) (cm) 9.88 13.20 -Tunneling No No -Undermining/Tunneling No No -Circular Undermining No No -Wound/Ulcer Outcome Not Healed Not Healed -Ulcer Cleansing Rinsed/ Rinsed/ Irrigated with Irrigated with Saline Saline -Foul Odor after Cleansing No No -Bioengineered Tissue No No -Bleeding Controlled with Pressure -Treatment Response Procedure Tolerated Well -Debridement - Subq, 1st 20sq cm Yes Yes Pain Scale: 0-10 Numeric Is Patient Pain Free? Yes Yes WC - Nurse 3 - General Ulcer D/C NN Start: 07/11/20 10:43 Freq: Status: Active Protocol: Activity Type Activity Date Activity User E-Sign Co-Sign Detail Recorded Client Recorded Date Recorded By Document 07/11/20 12:27 MS [id number] 07/11/20 12:28 MS Document 07/18/20 11:20 KR [id number] 07/18/20 11:23 KR 07/11/20 07/18/20 12:27 11:20 Wound Care Nurse 3 #1 LLE Post -Ulcer Cleansing Wound Cleanser Rinsed/ Irrigated with Saline -Primary Dressing Applied Aquacel AG 4x4 C Hydrogel ($) -Primary Dressing Covered/Secured with Dry Gauze & Dry Gauze, Roll Gauze, Secured with Secured with Tape Tape -Aquacel AG 4x4 1 Left -Size of Tubigrip Used Size E Pain Scale: 0-10 Numeric Is Patient Pain Free? Yes Yes WC - Visit Discharge Discharge Condition Stable Ambulatory Status Ambulatory Transportation Private Auto Accompanied by Wound debrided: Left calf ulcer Laterality: Left Type of Debridement: Excisional debridement Anesthesia Used: 4% Lidocaine Solution, Cetacaine Depth: in the subcutaneous layer Percentage of wound debrided: 100 Instrument Used: 7mm curette Tissue Removed: Slough and devitalized tissue Severity: Fat Layer Exposed Amount of bleeding with debridement: Moderate Bleeding Controlled with: Compression and gauze Patient tolerated procedure well Assessment/Plan Active Problems (Last Reviewed 07/16/19 @ 10:06 by Mona Thomas) Diabetic ulcer of left lower leg (Chronic) Chronic anticoagulation (Chronic) Essential hypertension (Chronic) Paroxysmal atrial fibrillation (Chronic) HLD (hyperlipidemia) (Chronic) Diabetes mellitus, type II (Chronic) Assessment: See above Plan: Debridement performed today in clinic. Aquacel Ag applied. We will have the patient continue Santyl once daily dressing changes for an additional week. Given the duration of the wound and failure of the wound to respond to standard wound care, we have applied for advanced skin substitutes (approved for puraply, nushield, Apligraf). Due to the amount of devitalized tissue and eschar present, we will evaluate the appropriateness of beginning an advanced skin substitute at his next visit. At home wound-care instructions: Cleanse ulcer daily with antibacterial soap and water. Dry thoroughly. Apply a nickel thick layer of Santyl to the left calf ulcer daily and cover with gauze. Compression: Wear double Tubigrip on right lower extremity. Off-loading: Avoid pressure at the site of the ulcer when seated. Avoid prolonged standing/dangling of legs. When seated, elevate feet at chest level. Walking is encouraged. Diet: Patient encouraged to increase protein and vitamin C intake while taking caution to avoid high carbohydrate and/or sugar intake. Labs/cultures/imaging: Cultures collected today. Antibiotic treatment will be determined based off of results. Routine baseline labwork (CBCD, CMP, hemoglobin A1c, CRP) revealed the following: CRP 13.7 (H), alk phos 159 (H), glucose 198 (H), creatinine 1.32 (H), estimated GFR 56 (L), hemoglobin A1c 7.7% (H). Venous studies ordered, scheduled but not yet completed. Follow-up: Return to clinic in 1 week for re-e valuation. Return sooner or report to the emergency room should symptoms worsen, or new symptoms arise. Note: [employer] speech recognition diamond cleaner software was used to create portions of this document. Sound-alike and misspelled words, as well as other diamond cleaner errors may be contained in the documentation. [id number]: [id number] Yadira subq tissue 20 sq cm/<
== END 2020-07-20 23:59 ==
LOC: WC 10:30
PROVIDERS: PCP Family Medicine; Visit Provider Nurse Practitioner Family
DX: E11.622 Type 2 diabetes mellitus with other skin ulcer (principal); I10 Essential (primary) hypertension; Z79.01 Long term (current) use of anticoagulants; E78.5 Hyperlipidemia, unspecified; I48.0 Paroxysmal atrial fibrillation; Z86.73 Personal history of transient ischemic attack (TIA), and cerebral infarction without residual deficits; G47.33 Obstructive sleep apnea (adult) (pediatric); E66.9 Obesity, unspecified; Z79.82 Long term (current) use of aspirin; Z79.84 Long term (current) use of oral hypoglycemic drugs; Z79.899 Other long term (current) drug therapy; L97.222 Non-pressure chronic ulcer of left calf with fat layer exposed
CPT/HCPCS: 11042; 87070; 87075; 87077; 87186; 87205; 99213; G0463

== ENCOUNTER 2020-08-15 10:45 | Outpatient (RCR) | payer MEDICARE, BC, OTHER, SELFPAY ==
[2020-07-21 00:39] VITALS: BP 139/88; PULSE 89; RESP 20; TEMP 36.1
[2020-07-25 10:50] VITALS: BP 154/105; PULSE 92; RESP 16; TEMP 36; BMI 27.4
--- NOTE | 2020-07-25 13:45 | PCM.WC.PN ---
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 Code(s): E11.622 - Type 2 diabetes mellitus with other skin ulcer; L97.929 - Non-pressure chronic ulcer of unspecified part of left lower leg with unspecified severity (2) Diabetes mellitus, type II Status: Chronic Qualifiers: Code(s): E11.9 - Type 2 diabetes mellitus without complications (3) Chronic anticoagulation Status: Chronic Code(s): Z79.01 - penitentiary (current) use of anticoagulants (4) Essential hypertension Status: Chronic Code(s): I10 - Essential (primary) hypertension (5) HLD (hyperlipidemia) Status: Chronic Qualifiers: Code(s): E78.5 - Hyperlipidemia, unspecified (6) Paroxysmal atrial fibrillation Status: Chronic Code(s): I48.0 - Paroxysmal atrial fibrillation Type of Wound Date of Service: 07/25/20 Chief Complaint: Left calf ulcer History of Wound: The patient presents to the wound healing center today (07/11/2020) for an initial evaluation of his left calf ulcer. He sees Dr. Masters for his primary care management, and was referred to the wound healing center by her. Patient has a past medical history significant for type 2 diabetes mellitus, essential hypertension, hyperlipidemia, paroxysmal atrial fibrillation, ischemic stroke, and chronic anticoagulation with warfarin. Patient states that around March or April 2020, he developed an ulceration of his left calf. He is unsure of any causative events/factors. The ulcer was present for several weeks before he sought treatment. His primary care provider had him using triple antibiotic ointment and nonadherent dressings for wound care. He has not been on any recent antibiotics. He denies drainage from his ulcer. The patient denies any fever, chills, nausea, vomiting, or diarrhea. Denies any increasing pain, redness, swelling, or purulent/malodorous drainage from affected area. Progress of Wound: The patient has been compliant with the use of Santyl daily dressing changes to his left lower leg ulcer. The patient denies any fever, chills, nausea, vomiting, or diarrhea. Denies any purulent/malodorous drainage from affected area. Periulcer erythema and edema have improved. Culture collected on 07/18/2020 was positive for 1+ Staph aureus and Staph epidermidis (susceptible to doxycycline). He was started on doxycycline 100 mg p.o. twice daily and is taking and tolerating this well. - Physical Exam Vital Signs Temp Pulse Resp BP 96.8 F L 92 16 154/105 H 07/25/20 10:50 07/25/20 10:50 07/25/20 10:50 07/25/20 10:50 General: Alert, Cooperative, No apparent distress Oral: Moist Mucosa Lungs: Normal air movement Extremities: No clubbing, No cyanosis, No edema, Capillary Refill Less than 3 Seconds, Peripheral Pulses Normal Skin: Ulcer/ Wound - Ulcer of left posterior calf with subcutaneous layer exposed. Moderate amounts of slough and devitalized tissue present. No tunneling, undermining, or probing to bone. No periulcer erythema, warmth or tenderness. No purulent/malodorous drainage Wound Measurements and Assessment WC - Nurse 1 - General Ulcer Measurement Start: 07/25/20 10:35 Freq: Status: Active Protocol: Activity Type Activity Date Activity User E-Sign Co-Sign Detail Recorded Client Recorded Date Recorded By Document 07/25/20 10:50 MS [id number] 07/25/20 10:52 MS 07/25/20 10:50 Wound Center Nurse 1 [Ulcer Assessment] #1 LLE Post -Current Size (cm) - Length 4 -Current Size (cm) - Width 2.3 -Current Size (cm) - Depth 0.6 -Total Square Cm 9.2 -Exudate Amt Medium -Exudate Type Purulent -Wound Margin Distinct, Outline Attached -Granulation Amt Medium (34-66%) -Slough/Fibrin Yes -Necrosis Amt Medium (34-66%) -Texture (Tasneem-wound Skin Appearance) No Abnormality -Moisture (Tasneem-wound Skin Appearance No Abnormality ) -Color (Tasneem-wound Skin Appearance) No Abnormality -Temperature (Tasneem-wound Skin No Abnormality Appearance) (Pt Warm) -Ulcer Cleansing SOAP AND WATER -Foul Odor after Cleansing No -Anesthetic Used 4% Lidocaine Solution WC - Nurse 2 - General Ulcer CM Notes Start: 07/25/20 10:35 Freq: Status: Active Protocol: Activity Type Activity Date Activity User E-Sign Co-Sign Detail Recorded Client Recorded Date Recorded By Document 07/25/20 13:32 PL [id number] 07/25/20 13:35 PL 07/25/20 13:32 Wound Center Nurse 2 [Procedure/Treatment] -Time 11:35 -Correct Patient Yes -Correct Side, Site, Position Yes -Correct Procedure Yes -Procedure Performed Yes -Type of Procedure Debridement -Clinical Debridement Subcutaneous -Tissue Removed Subcutaneous -Post Debridement (cm) - Length 4.8 -Post Debridement (cm) - Width 3.0 -Post Debridement (cm) - Depth 0.4 -Total Square (Post) (cm) 14.40 -Area of Debridement (cm) - Length 4.8 -Area of Debridement (cm) - Width 3.0 -Total Square (Area) (cm) 14.40 -Tunneling No -Undermining/Tunneling No -Circular Undermining No -Wound/Ulcer Outcome Not Healed -Ulcer Cleansing Rinsed/ Irrigated with Saline -Foul Odor after Cleansing No -Bioengineered Tissue Yes -Type of Bioengineered Tissue PuraPly AM -Expiration Date 10/12/22 -Product Lot Number [id number] -Percent Used 100 -Lot number of Saline Used [id number] -Bleeding Controlled with Pressure -Treatment Response Procedure Tolerated Well -Debridement - Subq, 1st 20sq cm No -Apply Skin Sub - 1st 25 sq cm - Legs 1 -PuraPly AM (per sq cm) 16 [See Physician Procedure note for Specifics] Pain Scale: 0-10 Numeric [Pain] -Is Patient Pain Free? Yes - Nurse 3 - General Ulcer D/C NN Start: 07/25/20 10:35 Freq: Status: Active Protocol: Activity Type Activity Date Activity User E-Sign Co-Sign Detail Recorded Client Recorded Date Recorded By Document 07/25/20 12:16 JOHNATHON [id number] 07/25/20 12:24 JOHNATHON 07/25/20 12:16 Wound Care Nurse 3 [Wound Dressing] #1 LLE Post -Primary Dressing Covered/Secured Dry Gauze, with Secured with Tape [Compression Applied] Right -Multi-Layered Wrap Application Multi-Layer Comp - Right ($ ) Pain Scale: 0-10 Numeric [Pain] -Is Patient Pain Free? Yes - Visit Discharge [Visit Discharge Information] -Discharge Condition Stable -Ambulatory Status Ambulatory -Transportation Private Auto -Accompanied by Psych/Mental Status: Normal Affect, Appropriate Debridement Note Post-Debridement Measurements/Treatment - Nurse 2 - General Ulcer CM Notes Start: 07/25/20 10:35 Freq: Status: Active Protocol: Activity Type Activity Date Activity User E-Sign Co-Sign Detail Recorded Client Recorded Date Recorded By Document 07/25/20 13:32 PL [id number] 07/25/20 13:35 PL 07/25/20 13:32 Wound Center Nurse 2 #1 LLE Post -Time 11:35 -Correct Patient Yes -Correct Side, Site, Position Yes -Correct Procedure Yes -Procedure Performed Yes -Type of Procedure Debridement -Clinical Debridement Subcutaneous -Tissue Removed Subcutaneous -Post Debridement (cm) - Length 4.8 -Post Debridement (cm) - Width 3.0 -Post Debridement (cm) - Depth 0.4 -Total Square (Post) (cm) 14.40 -Area of Debridement (cm) - Length 4.8 -Area of Debridement (cm) - Width 3.0 -Total Square (Area) (cm) 14.40 -Tunneling No -Undermining/Tunneling No -Circular Undermining No -Wound/Ulcer Outcome Not Healed -Ulcer Cleansing Rinsed/ Irrigated with Saline -Foul Odor after Cleansing No -Bioengineered Tissue Yes -Type of Bioengineered Tissue PuraPly AM -Expiration Date 10/12/22 -Product Lot Number [id number] -Percent Used 100 -Lot number of Saline Used [id number] -Bleeding Controlled with Pressure -Treatment Response Procedure Tolerated Well -Debridement - Subq, 1st 20sq cm No -Apply Skin Sub - 1st 25 sq cm - Legs 1 -PuraPly AM (per sq cm) 16 Pain Scale: 0-10 Numeric Is Patient Pain Free? Yes - Nurse 3 - General Ulcer D/C NN Start: 07/25/20 10:35 Freq: Status: Active Protocol: Activity Type Activity Date Activity User E-Sign Co-Sign Detail Recorded Client Recorded Date Recorded By Document 07/25/20 12:16 KR [id number] 07/25/20 12:24 KR 07/25/20 12:16 Wound Care Nurse 3 #1 LLE Post -Primary Dressing Covered/Secured with Dry Gauze, Secured with Tape Right -Multi-Layered Wrap Application Multi-Layer Comp - Right ($ ) Pain Scale: 0-10 Numeric Is Patient Pain Free? Yes WC - Visit Discharge Discharge Condition Stable Ambulatory Status Ambulatory Transportation Private Auto Accompanied by Wound debrided: Left posterior calf Laterality: Left Type of Debridement: Excisional debridement Anesthesia Used: 4% Lidocaine Solution, Cetacaine Depth: Down to and including healthy tissue, in the subcutaneous layer Percentage of wound debrided: 100 Instrument Used: 7mm curette, #15 blade, Forceps Tissue Removed: Slough and devitalized tissue Severity: Fat Layer Exposed Amount of bleeding with debridement: Mild Bleeding Controlled with: Compression and gauze Patient tolerated procedure well Assessment/Plan Assessment: See above Plan: Debridement performed today in clinic. Given the duration of the wound and failure of the wound to respond to standard wound care, we have applied for advanced skin substitutes (approved for puraply, nushield, Apligraf). Puraply #1 (fenestrated) was applied today. Was secured using skin glue, and covered with Adaptic touch and secured with Steri-Strips. 3M compression was applied to the left lower extremity. At home wound-care instructions: Keep the wound dressing and 3M wraps clean and dry. Cover when showering. Off-loading: Avoid pressure at the site of the ulcer when seated. Avoid prolonged standing/dangling of legs. When seated, elevate feet at chest level. Walking is encouraged. Diet: Patient encouraged to increase protein and vitamin C intake while taking caution to avoid high carbohydrate and/or sugar intake. Labs/cultures/imaging: Finish course of doxycycline as directed. Routine baseline labwork (CBCD, CMP, hemoglobin A1c, CRP) revealed the following: CRP 13.7 (H), alk phos 159 (H), glucose 198 (H), creatinine 1.32 (H), estimated GFR 56 (L), hemoglobin A1c 7.7% (H). Venous studies ordered, scheduled for next Tuesday. Follow-up: Return to clinic in 1 week for re-evaluation. Report to the wound healing center before vascular studies next Tuesday to have wraps and dressing removed from right leg. A temporary dressing with gauze will be applied until patient is finished with vascular studies, at which time he will return to the wound healing center for his provider appointment. Patient was instructed to return sooner or report to the emergency room should symptoms worsen, or new symptoms arise. Note: [employer] speech recognition safety grooving machine operator software was used to create portions of this document. Sound-alike and misspelled words, as well as other safety grooving machine operator errors may be contained in the documentation. [id number]: [id number] Skin sub graft trnk/arm/leg
--- NOTE | 2020-08-01 09:56 | VDLE_ITS ---
Reason For Study: Non healing wound RIGHT LEFT CFV is compressible, spontaneous, phasic, CFV is compressible, spontaneous, phasic, competent and demonstrates normal competent, and demonstrates normal augmentation. augmentation. FV is compressible, spontaneous, phasic, FV is compressible, spontaneous, phasic, competent and demonstrates normal competent and demonstrates normal augmentation. augmentation. POP V is compressible, spontaneous, phasic, POP V is compressible, spontaneous, phasic, competent and demonstrates normal competent and demonstrates normal augmentation. augmentation. T/P Trunk is compressible. T/P Trunk is compressible. PTV is compressible. PTV is compressible. RT PerV is compressible. LT PerV is compressible. SFJ is INCOMPETENT and measures 0.85 x 0.93 Nonvascularized structure noted in the cm. popliteal fossa that measures approximently GSV proximal thigh measures 0.36 x 0.38 cm. 1.65 x 1.94 x 3.41 cm. GSV at knee measures 0.28 x 0.26 cm. SFJ is competent and measures 1.02 x 0.95 cm. GSV INCOMPETENT throughout for greater than GSV proximal thigh measures 0.51 x 0.59 cm. 0.5 seconds. GSV at knee measures 0.31 x 0.29 cm. ASV mid thigh is INCOMPETENT for greater GSV INCOMPETENT throughout for greater than than 0.5 seconds and measures 0.28 x 0.30 0.5 seconds. cm. SSV at junction is competent and measures SSV proximal calf is INCOMPETENT for greater 0.22 x 0.23 cm. than 0.5 seconds and measures 0.19 x 0.19 cm. Procedure This is a venous duplex using B-mode, color flow and spectral Doppler. Exam performed in department. Interpretation Summary Deep veins of the lower extremities are bilaterally patent and compressible segmentally. There is no evidence of deep vein thrombosis on either side. Valvular competence appears intact within the proximal deep venous systems bilaterally. The great saphenous veins appear bilaterally patent and compressible segmentally. The right sapheno-femoral junction is incompetent . The left sapheno- femoral junction is competent . Segmental valvular incompetence is noted within the great saphenous veins bilaterally. The right small saphenous vein is patent and incompetent. The left small saphenous vein is patent and competent. The right accessory saphenous vein in the right mid-thigh is incompetent. A non-vascular, hypoechoic structure is noted in the left popliteal space, measuring 1.65 cm x 1.94 cm x 3.41 cm. This probably represents a popliteal cyst. Clinical correlation is advised. Ordering Physician: Oanh La Referring Physician: Kasey Masters M.D. Performed By: Jaz Zuñiga RVT
[2020-08-01 10:56] VITALS: BP 142/91; PULSE 95; TEMP 36.1; BMI 27.4
--- NOTE | 2020-08-01 14:32 | PN.PCM_ITS ---
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 Code(s): E11.622 - Type 2 diabetes mellitus with other skin ulcer; L97.929 - Non-pressure chronic ulcer of unspecified part of left lower leg with unspecified severity (2) Diabetes mellitus, type II Status: Chronic Qualifiers: Code(s): E11.9 - Type 2 diabetes mellitus without complications (3) Chronic anticoagulation Status: Chronic Code(s): Z79.01 - half-way (current) use of anticoagulants (4) Essential hypertension Status: Chronic Code(s): I10 - Essential (primary) hypertension (5) HLD (hyperlipidemia) Status: Chronic Qualifiers: Code(s): E78.5 - Hyperlipidemia, unspecified (6) Paroxysmal atrial fibrillation Status: Chronic Code(s): I48.0 - Paroxysmal atrial fibrillation Type of Wound Date of Service: 08/01/20 Chief Complaint: Left calf ulcer History of Wound: The patient presents to the wound healing center today (07/11/2020) for an initial evaluation of his left calf ulcer. He sees Dr. Masters for his primary care management, and was referred to the wound healing center by her. Patient has a past medical history significant for type 2 diabetes mellitus, essential hypertension, hyperlipidemia, paroxysmal atrial fibrillation, ischemic stroke, and chronic anticoagulation with warfarin. Patient states that around March or April 2020, he developed an ulceration of his left calf. He is unsure of any causative events/factors. The ulcer was present for several weeks before he sought treatment. His primary care provider had him using triple antibiotic ointment and nonadherent dressings for wound care. He has not been on any recent antibiotics. He denies drainage from his ulcer. The patient denies any fever, chills, nausea, vomiting, or diarrhea. Denies any increasing pain, redness, swelling, or purulent/malodorous drainage from affected area. Progress of Wound: The patient tolerated Puraply (#1, fenestrated) and 3M wraps well, and reports a reduction in discomfort of his leg ulcer. The patient denies any fever, chills, nausea, vomiting, or diarrhea. Denies any purulent/malodorous drainage from affected area. Periulcer erythema and edema have resolved. Culture collected on 07/18/2020 was positive for 1+ Staph aureus and Staph epidermidis (susceptible to doxycycline). He was started on doxycycline 100 mg p.o. twice daily and has completed this course. There are no clinical signs of infection today. He had vascular studies obtained this morning; results not yet available. - Physical Exam Vital Signs Temp Pulse Resp BP 97.0 F L 95 16 142/91 H 08/01/20 10:56 08/01/20 10:56 07/25/20 10:50 08/01/20 10:56 General: Alert, Cooperative, No apparent distress HEENT: Atraumatic Oral: Moist Mucosa Neck: Supple Lungs: Normal air movement Extremities: No clubbing, No cyanosis, No edema, Capillary Refill Less than 3 Seconds, Peripheral Pulses Normal Skin: Ulcer/ Wound - Ulcer of left posterior calf with subcutaneous layer exposed. Small amount of slough and devitalized tissue present. No tunneling, undermining, or probing to bone. No periulcer erythema, warmth or tenderness. No purulent/malodorous drainage. Wound Measurements and Assessment WC - Nurse 1 - General Ulcer Measurement Start: 07/25/20 10:35 Freq: Status: Active Protocol: Activity Type Activity Date Activity User E-Sign Co-Sign Detail Recorded Client Recorded Date Recorded By Document 08/01/20 10:56 KR [id number] 08/01/20 10:59 KR Document 08/01/20 11:28 KR [id number] 08/01/20 11:28 KR 08/01/20 08/01/20 10:56 11:28 Wound Center Nurse 1 [Ulcer Assessment] #1 LLE Post -Current Size (cm) - Length 4.2 -Current Size (cm) - Width 2.8 -Current Size (cm) - Depth 0.1 -Total Square Cm 11.76 -Exudate Amt Medium -Exudate Type Serosanguineous -Wound Margin Distinct, Outline Attached -Granulation Amt Medium (34-66%) -Granulation Quality Red -Necrosis Amt Medium (34-66%) -Necrotic Tissue Type Adherent Slough -Texture (Tasneem-wound Skin Appearance) Assessed, Scarring -Moisture (Tasneem-wound Skin Appearance No Abnormality, ) Assessed -Color (Tasneem-wound Skin Appearance) No Abnormality, Assessed -Temperature (Tasneem-wound Skin No Abnormality Appearance) (Pt Warm) -Tenderness on Palpation (Tasneem-wound No Skin Appearance) -Ulcer Cleansing soap and water -Foul Odor after Cleansing No -Anesthetic Used 4% Lidocaine Solution [Edema Assessment] -Left Calf (cm) 36 -Left Ankle (cm) 23 WC - Nurse 3 - General Ulcer D/C NN Start: 07/25/20 10:35 Freq: Status: Active Protocol: Activity Type Activity Date Activity User E-Sign Co-Sign Detail Recorded Client Recorded Date Recorded By Document 08/01/20 12:43 KR [id number] 08/01/20 12:44 KR 08/01/20 12:43 Wound Care Nurse 3 [Wound Dressing] #1 LLE Post -Primary Dressing Covered/Secured Dry Gauze, with Secured with Tape [Compression Applied] Right -Multi-Layered Wrap Application Multi-Layer Comp - Right ($ ) Musculoskeletal: No Muscle Wasting Psych/Mental Status: Normal Affect Debridement Note Post-Debridement Measurements/Treatment - Nurse 2 - General Ulcer CM Notes Start: 07/25/20 10:35 Freq: Status: Active Protocol: Activity Type Activity Date Activity User E-Sign Co-Sign Detail Recorded Client Recorded Date Recorded By Document 07/25/20 13:32 PL [id number] 07/25/20 13:35 PL 07/25/20 13:32 Wound Center Nurse 2 #1 LLE Post -Time 11:35 -Correct Patient Yes -Correct Side, Site, Position Yes -Correct Procedure Yes -Procedure Performed Yes -Type of Procedure Debridement -Clinical Debridement Subcutaneous -Tissue Removed Subcutaneous -Post Debridement (cm) - Length 4.8 -Post Debridement (cm) - Width 3.0 -Post Debridement (cm) - Depth 0.4 -Total Square (Post) (cm) 14.40 -Area of Debridement (cm) - Length 4.8 -Area of Debridement (cm) - Width 3.0 -Total Square (Area) (cm) 14.40 -Tunneling No -Undermining/Tunneling No -Circular Undermining No -Wound/Ulcer Outcome Not Healed -Ulcer Cleansing Rinsed/ Irrigated with Saline -Foul Odor after Cleansing No -Bioengineered Tissue Yes -Type of Bioengineered Tissue PuraPly AM -Expiration Date 10/12/22 -Product Lot Number [id number] -Percent Used 100 -Lot number of Saline Used [id number] -Bleeding Controlled with Pressure -Treatment Response Procedure Tolerated Well -Debridement - Subq, 1st 20sq cm No -Apply Skin Sub - 1st 25 sq cm - Legs 1 -PuraPly AM (per sq cm) 16 Pain Scale: 0-10 Numeric Is Patient Pain Free? Yes - Nurse 3 - General Ulcer D/C NN Start: 07/25/20 10:35 Freq: Status: Active Protocol: Activity Type Activity Date Activity User E-Sign Co-Sign Detail Recorded Client Recorded Date Recorded By Document 07/25/20 12:16 KR [id number] 07/25/20 12:24 KR Document 08/01/20 12:43 KR [id number] 08/01/20 12:44 KR 07/25/20 08/01/20 12:16 12:43 Wound Care Nurse 3 #1 LLE Post -Primary Dressing Covered/Secured with Dry Gauze, Dry Gauze, Secured with Secured with Tape Tape Right -Multi-Layered Wrap Application Multi-Layer Multi-Layer Comp - Right ($ Comp - Right ($ ) ) Pain Scale: 0-10 Numeric Is Patient Pain Free? Yes WC - Visit Discharge Discharge Condition Stable Ambulatory Status Ambulatory Transportation Private Auto Accompanied by Wound debrided: Left posterior calf Laterality: Left Type of Debridement: Excisional debridement Anesthesia Used: 4% Lidocaine Solution, Cetacaine Depth: in the subcutaneous layer Percentage of wound debrided: 100 Instrument Used: 7mm curette Tissue Removed: Slough and devitalized tissue Severity: Fat Layer Exposed Amount of bleeding with debridement: Moderate Bleeding Controlled with: Compression and gauze Patient tolerated procedure well Assessment/Plan Active Problems (Last Reviewed 07/16/19 @ 10:06 by Mona Thomas) Diabetic ulcer of left lower leg (Chronic) Chronic anticoagulation (Chronic) Essential hypertension (Chronic) Paroxysmal atrial fibrillation (Chronic) HLD (hyperlipidemia) (Chronic) Diabetes mellitus, type II (Chronic) Assessment: See above Plan: Debridement performed today in clinic. Given the duration of the wound and failure of the wound to respond to standard wound care, we have applied for advanced skin substitutes (approved for abhilash, lisa, Samina). Puraply #2 (fenestrated) was applied today. Product was secured using skin glue, and covered with Adaptic touch and secured with Steri-Strips. 3M compression was applied to the left lower extremity. At home wound-care instructions: Keep the wound dressing and 3M wraps clean and dry. Cover when showering. Off-loading: Avoid pressure at the site of the ulcer when seated. Avoid prolonged standing/dangling of legs. When seated, elevate feet at chest level. Walking is encouraged. Diet: Patient encouraged to increase protein and vitamin C intake while taking caution to avoid high carbohydrate and/or sugar intake. Labs/cultures/imaging: Doxycycline completed. No further antibiotics are warranted at this time. Routine baseline labwork (CBCD, CMP, hemoglobin A1c, CRP) revealed the following: CRP 13.7 (H), alk phos 159 (H), glucose 198 (H), creatinine 1.32 (H), estimated GFR 56 (L), hemoglobin A1c 7.7% (H). Venous studies were completed today, results not yet available. Follow-up: Return to clinic in 1 week for re-evaluation. Patient was instructed to return sooner or report to the emergency room should symptoms worsen, or new symptoms arise. Note: [employer] ([employer]) speech recognition vector control assistant software was used to create portions of this document. Sound-alike and misspelled words, as well as other vector control assistant errors may be contained in the documentation. [id number]: [id number] Skin sub graft trnk/arm/leg
[2020-08-08 10:49] VITALS: BP 161/98; PULSE 106; TEMP 36.1; BMI 27.4
[2020-08-08 11:45] VITALS: BP 128/71
--- NOTE | 2020-08-08 14:37 | PCM.WC.PN ---
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 Code(s): E11.622 - Type 2 diabetes mellitus with other skin ulcer; L97.929 - Non-pressure chronic ulcer of unspecified part of left lower leg with unspecified severity (2) Diabetes mellitus, type II Status: Chronic Qualifiers: Code(s): E11.9 - Type 2 diabetes mellitus without complications (3) Chronic anticoagulation Status: Chronic Code(s): Z79.01 - retirement (current) use of anticoagulants (4) Essential hypertension Status: Chronic Code(s): I10 - Essential (primary) hypertension (5) HLD (hyperlipidemia) Status: Chronic Qualifiers: Code(s): E78.5 - Hyperlipidemia, unspecified (6) Paroxysmal atrial fibrillation Status: Chronic Code(s): I48.0 - Paroxysmal atrial fibrillation Type of Wound Date of Service: 08/08/20 Chief Complaint: Left calf ulcer History of Wound: The patient presents to the wound healing center today (07/11/2020) for an initial evaluation of his left calf ulcer. He sees Dr. Masters for his primary care management, and was referred to the wound healing center by her. Patient has a past medical history significant for type 2 diabetes mellitus, essential hypertension, hyperlipidemia, paroxysmal atrial fibrillation, ischemic stroke, and chronic anticoagulation with warfarin. Patient states that around March or April 2020, he developed an ulceration of his left calf. He is unsure of any causative events/factors. The ulcer was present for several weeks before he sought treatment. His primary care provider had him using triple antibiotic ointment and nonadherent dressings for wound care. He has not been on any recent antibiotics. He denies drainage from his ulcer. The patient denies any fever, chills, nausea, vomiting, or diarrhea. Denies any increasing pain, redness, swelling, or purulent/malodorous drainage from affected area. Progress of Wound: The patient tolerated Puraply (#2, fenestrated) and 3M wraps well, and reports a reduction in discomfort of his leg ulcer. The patient denies any fever, chills, nausea, vomiting, or diarrhea. Denies any purulent/malodorous drainage from affected area. Periulcer erythema and edema have resolved. Culture collected on 07/18/2020 was positive for 1+ Staph aureus and Staph epidermidis (susceptible to doxycycline). He was started on doxycycline 100 mg p.o. twice daily and has completed this course. There are no clinical signs of infection today. Bilateral lower extremity venous studies demonstrated incompetence of the right saphenofemoral junction, segmental valvular incompetence within the great saphenous veins bilaterally, incompetent right small saphenous vein, incompetent right accessory saphenous vein in the right mid thigh, and a suspected popliteal cyst of the left popliteal space. - Physical Exam Vital Signs Temp Pulse Resp BP 97.0 F L 106 H 16 128/71 H 08/08/20 10:49 08/08/20 10:49 07/25/20 10:50 08/08/20 11:45 General: Alert, Cooperative, No apparent distress HEENT: Atraumatic, Normocephalic Oral: Moist Mucosa Neck: Supple Lungs: Normal air movement Extremities: No clubbing, No cyanosis, No edema, Capillary Refill Less than 3 Seconds, Peripheral Pulses Normal Skin: Ulcer/ Wound - Ulcer of left posterior calf with subcutaneous layer exposed. Small amount of slough and devitalized tissue present. No tunneling, undermining, or probing to bone. No periulcer erythema, warmth or tenderness. No purulent/malodorous drainage. Wound Measurements and Assessment WC - Nurse 1 - General Ulcer Measurement Start: 07/25/20 10:35 Freq: Status: Active Protocol: Activity Type Activity Date Activity User E-Sign Co-Sign Detail Recorded Client Recorded Date Recorded By Document 08/08/20 10:49 JOHNATHON [id number] 08/08/20 10:55 JOHNATHON 08/08/20 10:49 Wound Center Nurse 1 [Ulcer Assessment] #1 LLE Post -Current Size (cm) - Length 4.3 -Current Size (cm) - Width 2 -Current Size (cm) - Depth 0.2 -Total Square Cm 8.6 -Exudate Amt Small -Exudate Type Serosanguineous -Wound Margin Distinct, Outline Attached -Granulation Amt Large (67-100%) -Granulation Quality Red -Slough/Fibrin No -Necrosis Amt None Present (0 %) -Texture (T[place]neem-wound Skin Appearance) Assessed, Scarring -Moisture (T[place]em-wound Skin Appearance No Abnormality, ) Assessed -Color ([place]neem-wound Skin Appearance) No Abnormality, Assessed -Temperature ([place]em-wound Skin No Abnormality Appearance) (Pt Warm) -Tenderness on Palpation ([place]em-wound No Skin Appearance) -Ulcer Cleansing Rinsed/ Irrigated with Saline -Foul Odor after Cleansing No -Anesthetic Used 4% Lidocaine Solution [Edema Assessment] -Left Calf (cm) 34.1 -Left Ankle (cm) 20.8 WC - Nurse 2 - General Ulcer CM Notes Start: 07/25/20 10:35 Freq: Status: Active Protocol: Activity Type Activity Date Activity User E-Sign Co-Sign Detail Recorded Client Recorded Date Recorded By Document 08/08/20 14:14 PL [id number] 08/08/20 14:17 PL 08/08/20 14:14 Wound Center Nurse 2 [Procedure/Treatment] #1 LLE Post -Time 11:26 -Correct Patient Yes -Correct Side, Site, Position Yes -Correct Procedure Yes -Procedure Performed Yes -Type of Procedure Debridement -Clinical Debridement Subcutaneous -Tissue Removed Subcutaneous -Post Debridement (cm) - Length 4.4 -Post Debridement (cm) - Width 2.5 -Post Debridement (cm) - Depth 0.1 -Total Square (Post) (cm) 11.00 -Area of Debridement (cm) - Length 4.4 -Area of Debridement (cm) - Width 2.5 -Total Square (Area) (cm) 11.00 -Tunneling No -Undermining/Tunneling No -Circular Undermining No -Wound/Ulcer Outcome Not Healed -Ulcer Cleansing Rinsed/ Irrigated with Saline -Foul Odor after Cleansing No -Bioengineered Tissue Yes -Type of Bioengineered Tissue PuraPly AM -Expiration Date 10/12/22 -Product Lot Number [id number] -Percent Used 100 -Lot number of Saline Used [id number] -Bleeding Controlled with Pressure -Treatment Response Procedure Tolerated Well -Debridement - Subq, 1st 20sq cm No -Apply Skin Sub - 1st 25 sq cm - Legs 1 -PuraPly AM (per sq cm) 16 [See Physician Procedure note for Specifics] Pain Scale: 0-10 Numeric [Pain] -Is Patient Pain Free? Yes WC - Nurse 3 - General Ulcer D/C NN Start: 07/25/20 10:35 Freq: Status: Active Protocol: Activity Type Activity Date Activity User E-Sign Co-Sign Detail Recorded Client Recorded Date Recorded By Document 08/08/20 11:45 KR [id number] 08/08/20 11:46 KR 08/08/20 11:45 Wound Care Nurse 3 [Wound Dressing] #1 LLE Post -Primary Dressing Covered/Secured Dry Gauze with [Compression Applied] Right -Multi-Layered Wrap Application Multi-Layer Comp - Right ($ ) Vital Signs [Blood Pressure] -Blood Pressure (90/60-120/80) 128/71 H -Blood Pressure Mean (mm Hg) 90 -Source Monitor -Position Semi-Fowlers -Blood Pressure Location Right Arm Pain Scale: 0-10 Numeric [Pain] -Is Patient Pain Free? Yes WC - Visit Discharge [Visit Discharge Information] -Discharge Condition Stable -Ambulatory Status Ambulatory -Transportation Private Auto -Accompanied by Psych/Mental Status: Normal Affect, Appropriate Debridement Note Post-Debridement Measurements/Treatment WC - Nurse 2 - General Ulcer CM Notes Start: 07/25/20 10:35 Freq: Status: Active Protocol: Activity Type Activity Date Activity User E-Sign Co-Sign Detail Recorded Client Recorded Date Recorded By Document 07/25/20 13:32 PL [id number] 07/25/20 13:35 PL Document 08/01/20 14:42 PL [id number] 08/01/20 14:44 PL Document 08/08/20 14:14 PL [id number] 08/08/20 14:17 PL 07/25/20 08/01/20 08/08/20 13:32 14:42 14:14 Wound Center Nurse 2 #1 LLE Post -Time 11:35 12:10 11:26 -Correct Patient Yes Yes Yes -Correct Side, Site, Position Yes Yes Yes -Correct Procedure Yes Yes Yes -Procedure Performed Yes Yes Yes -Type of Procedure Debridement Debridement Debridement -Clinical Debridement Subcutaneous Subcutaneous Subcutaneous -Tissue Removed Subcutaneous Subcutaneous Subcutaneous -Post Debridement (cm) - Length 4.8 4.1 4.4 -Post Debridement (cm) - Width 3.0 2.7 2.5 -Post Debridement (cm) - Depth 0.4 0.3 0.1 -Total Square (Post) (cm) 14.40 11.07 11.00 -Area of Debridement (cm) - Length 4.8 4.1 4.4 -Area of Debridement (cm) - Width 3.0 2.7 2.5 -Total Square (Area) (cm) 14.40 11.07 11.00 -Tunneling No No No -Undermining/Tunneling No No No -Circular Undermining No No No -Wound/Ulcer Outcome Not Healed Not Healed Not Healed -Ulcer Cleansing Rinsed/ Rinsed/ Rinsed/ Irrigated with Irrigated with Irrigated with Saline Saline Saline -Foul Odor after Cleansing No No No -Bioengineered Tissue Yes Yes Yes -Type of Bioengineered Tissue PuraPly AM PuraPly AM PuraPly AM -Expiration Date 10/12/22 10/12/22 10/12/22 -Product Lot Number [id number] -Percent Used 100 100 100 -Lot number of Saline Used [id number] -Bleeding Controlled with Pressure Pressure Pressure -Treatment Response Procedure Procedure Procedure Tolerated Well Tolerated Well Tolerated Well -Debridement - Subq, 1st 20sq cm No No No -Apply Skin Sub - 1st 25 sq cm - Legs 1 1 1 -PuraPly AM (per sq cm) 16 16 16 Pain Scale: 0-10 Numeric Is Patient Pain Free? Yes Yes Yes - Nurse 3 - General Ulcer D/C NN Start: 07/25/20 10:35 Freq: Status: Active Protocol: Activity Type Activity Date Activity User E-Sign Co-Sign Detail Recorded Client Recorded Date Recorded By Document 07/25/20 12:16 KR [id number] 07/25/20 12:24 KR Document 08/01/20 12:43 KR [id number] 08/01/20 12:44 KR Document 08/08/20 11:45 KR [id number] 08/08/20 11:46 KR 07/25/20 08/01/20 08/08/20 12:16 12:43 11:45 Wound Care Nurse 3 #1 LLE Post -Primary Dressing Covered/Secured with Dry Gauze, Dry Gauze, Dry Gauze Secured with Secured with Tape Tape Right -Multi-Layered Wrap Application Multi-Layer Multi-Layer Multi-Layer Comp - Right ($ Comp - Right ($ Comp - Right ($ ) ) ) Vital Signs Blood Pressure (90/60-120/80) 128/71 H Blood Pressure Mean (mm Hg) 90 Source Monitor Position Semi-Fowlers Blood Pressure Location Right Arm Pain Scale: 0-10 Numeric Is Patient Pain Free? Yes Yes WC - Visit Discharge Discharge Condition Stable Stable Ambulatory Status Ambulatory Ambulatory Transportation Private Auto Private Auto Accompanied by Wound debrided: Left posterior calf Laterality: Left Type of Debridement: Excisional debridement Anesthesia Used: 4% Lidocaine Solution Depth: Down to and including healthy tissue Percentage of wound debrided: 100 Instrument Used: 7mm curette, Forceps, - - Scissors Tissue Removed: Slough and devitalized tissue Severity: Fat Layer Exposed Amount of bleeding with debridement: Moderate Bleeding Controlled with: Compression and gauze Patient tolerated procedure well Assessment/Plan Active Problems (Last Reviewed 07/16/19 @ 10:06 by Mona Thomas) Diabetic ulcer of left lower leg (Chronic) Chronic anticoagulation (Chronic) Essential hypertension (Chronic) Paroxysmal atrial fibrillation (Chronic) HLD (hyperlipidemia) (Chronic) Diabetes mellitus, type II (Chronic) Assessment: See above Plan: Debridement performed today in clinic. Given the duration of the wound and failure of the wound to respond to standard wound care, we have applied for advanced skin substitutes (approved for puraply, nushield, Apligraf). Puraply #3 (fenestrated) was applied today. Product was secured using skin glue, and covered with Adaptic touch and secured with Steri-Strips. 3M compression was applied to the left lower extremity. At home wound-care instructions: Keep the wound dressing and 3M wraps clean and dry. Cover when showering. Off-loading: Avoid pressure at the site of the ulcer when seated. Avoid prolonged standing/dangling of legs. When seated, elevate feet at chest level. Walking is encouraged. Diet: Patient encouraged to increase protein and vitamin C intake while taking caution to avoid high carbohydrate and/or sugar intake. Labs/cultures/imaging: Doxycycline completed. No further antibiotics are warranted at this time. Routine baseline labwork (CBCD, CMP, hemoglobin A1c, CRP) revealed the following: CRP 13.7 (H), alk phos 159 (H), glucose 198 (H), creatinine 1.32 (H), estimated GFR 56 (L), hemoglobin A1c 7.7% (H). Venous studies were completed today, results not yet available. Bilateral lower extremity venous studies revealed numerous areas of venous incompetence, and patient will be referred to vascular. Follow-up: Return to clinic in 1 week for re-evaluation. Patient was instructed to return sooner or report to the emergency room should symptoms worsen, or new symptoms arise. Note: [employer] [place] speech recognition manager change software was used to create portions of this document. Sound-alike and misspelled words, as well as other manager change errors may be contained in the documentation. [id number]: [id number] Skin sub graft trnk/arm/leg
[2020-08-15 10:50] VITALS: BP 142/90; PULSE 122; TEMP 36.1; BMI 27.4
--- NOTE | 2020-08-15 13:17 | PN.PCM_ITS ---
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 Code(s): E11.622 - Type 2 diabetes mellitus with other skin ulcer; L97.929 - Non-pressure chronic ulcer of unspecified part of left lower leg with unspecified severity (2) Diabetes mellitus, type II Status: Chronic Qualifiers: Code(s): E11.9 - Type 2 diabetes mellitus without complications (3) Chronic anticoagulation Status: Chronic Code(s): Z79.01 - intermediate (current) use of anticoagulants (4) Essential hypertension Status: Chronic Code(s): I10 - Essential (primary) hypertension (5) HLD (hyperlipidemia) Status: Chronic Qualifiers: Code(s): E78.5 - Hyperlipidemia, unspecified (6) Paroxysmal atrial fibrillation Status: Chronic Code(s): I48.0 - Paroxysmal atrial fibrillation Type of Wound Date of Service: 08/15/20 Chief Complaint: Left calf ulcer History of Wound: The patient presents to the wound healing center today (07/11/2020) for an initial evaluation of his left calf ulcer. He sees Dr. Masters for his primary care management, and was referred to the wound healing center by her. Patient has a past medical history significant for type 2 diabetes mellitus, essential hypertension, hyperlipidemia, paroxysmal atrial fibrillation, ischemic stroke, and chronic anticoagulation with warfarin. Patient states that around March or April 2020, he developed an ulceration of his left calf. He is unsure of any causative events/factors. The ulcer was present for several weeks before he sought treatment. His primary care provider had him using triple antibiotic ointment and nonadherent dressings for wound care. He has not been on any recent antibiotics. He denies drainage from his ulcer. The patient denies any fever, chills, nausea, vomiting, or diarrhea. Denies any increasing pain, redness, swelling, or purulent/malodorous drainage from affected area. Progress of Wound: The patient tolerated Puraply (#3, fenestrated) and 3M wraps well, and reports a reduction in discomfort of his leg ulcer. The patient denies any fever, chills, nausea, vomiting, or diarrhea. Denies any purulent/malodorous drainage from affected area. Periulcer erythema and edema have resolved. Culture collected on 07/18/2020 was positive for 1+ Staph aureus and Staph epidermidis (susceptible to doxycycline). He was started on doxycycline 100 mg p.o. twice daily and has completed this course. There are no clinical signs of infection today. Bilateral lower extremity venous studies demonstrated incompetence of the right saphenofemoral junction, segmental valvular incompetence within the great saphenous veins bilaterally, incompetent right small saphenous vein, incompetent right accessory saphenous vein in the right mid thigh, and a suspected popliteal cyst of the left popliteal space. He was instructed to schedule an appointment with vascular (Dr. Tirado or Dr. Be), but has not yet done so. - Physical Exam Vital Signs Temp Pulse Resp BP 97 F L 122 H 16 142/90 H 08/15/20 10:50 08/15/20 10:50 07/25/20 10:50 08/15/20 10:50 General: Alert, Cooperative, No apparent distress HEENT: Atraumatic, Normocephalic Oral: Moist Mucosa Neck: Supple Lungs: Normal air movement Extremities: No clubbing, No cyanosis, No edema, No Calf Tenderness, Peripheral Pulses Normal Skin: Ulcer/ Wound - Ulcer of left posterior calf with subcutaneous layer exposed. Small amount of slough and devitalized tissue present. No tunneling, undermining, or probing to bone. No periulcer erythema, warmth or tenderness. No purulent/malodorous drainage. Wound Measurements and Assessment WC - Nurse 1 - General Ulcer Measurement Start: 07/25/20 10:35 Freq: Status: Active Protocol: Activity Type Activity Date Activity User E-Sign Co-Sign Detail Recorded Client Recorded Date Recorded By Document 08/15/20 10:50 JOHNATHON [id number] 08/15/20 10:56 JOHNATHON 08/15/20 10:50 Wound Center Nurse 1 [Ulcer Assessment] #1 LLE Post -Current Size (cm) - Length 3.9 -Current Size (cm) - Width 2.4 -Current Size (cm) - Depth 0.2 -Total Square Cm 9.36 -Exudate Amt Large -Exudate Type Serosanguineous -Wound Margin Distinct, Outline Attached -Granulation Amt Medium (34-66%) -Granulation Quality Red -Necrosis Amt Medium (34-66%) -Necrotic Tissue Type Adherent Slough -Texture (Tasneem-wound Skin Appearance) Assessed, Scarring -Moisture (Tasneem-wound Skin Appearance No Abnormality, ) Assessed -Color (Tasneem-wound Skin Appearance) No Abnormality, Assessed -Temperature (Tasneem-wound Skin No Abnormality Appearance) (Pt Warm) -Tenderness on Palpation (Tasneem-wound No Skin Appearance) -Ulcer Cleansing Rinsed/ Irrigated with Saline -Foul Odor after Cleansing No -Anesthetic Used 4% Lidocaine Solution [Edema Assessment] -Left Calf (cm) 37 -Left Ankle (cm) 23 WC - Nurse 2 - General Ulcer CM Notes Start: 07/25/20 10:35 Freq: Status: Active Protocol: Activity Type Activity Date Activity User E-Sign Co-Sign Detail Recorded Client Recorded Date Recorded By Document 08/15/20 12:01 PL [id number] 08/15/20 12:05 PL 08/15/20 12:01 Wound Center Nurse 2 [Procedure/Treatment] #1 LLE Post -Time 11:05 -Correct Patient Yes -Correct Side, Site, Position Yes -Correct Procedure Yes -Procedure Performed Yes -Type of Procedure Debridement -Clinical Debridement Subcutaneous -Tissue Removed Subcutaneous -Post Debridement (cm) - Length 4.2 -Post Debridement (cm) - Width 2.3 -Post Debridement (cm) - Depth 0.2 -Total Square (Post) (cm) 9.66 -Area of Debridement (cm) - Length 4.2 -Area of Debridement (cm) - Width 2.3 -Total Square (Area) (cm) 9.66 -Tunneling No -Undermining/Tunneling No -Circular Undermining No -Wound/Ulcer Outcome Not Healed -Ulcer Cleansing Rinsed/ Irrigated with Saline -Foul Odor after Cleansing No -Bioengineered Tissue Yes -Type of Bioengineered Tissue NuShield -Expiration Date 12/21/23 -Product Lot Number [id number] -Percent Used 100 -Bleeding Controlled with Pressure -Treatment Response Procedure Tolerated Well -Debridement - Subq, 1st 20sq cm No -Apply Skin Sub - 1st 25 sq cm - Legs 1 -NuShield (per sq cm) 12 [See Physician Procedure note for Specifics] Pain Scale: 0-10 Numeric [Pain] -Is Patient Pain Free? Yes WC - Nurse 3 - General Ulcer D/C NN Start: 07/25/20 10:35 Freq: Status: Active Protocol: Activity Type Activity Date Activity User E-Sign Co-Sign Detail Recorded Client Recorded Date Recorded By Document 08/15/20 11:36 KR [id number] 08/15/20 11:37 KR 08/15/20 11:36 Wound Care Nurse 3 [Wound Dressing] #1 LLE Post -Primary Dressing Covered/Secured Dry Gauze with [Compression Applied] Right -Multi-Layered Wrap Application Multi-Layer Comp - Right ($ ) Pain Scale: 0-10 Numeric [Pain] -Is Patient Pain Free? Yes WC - Visit Discharge [Visit Discharge Information] -Discharge Condition Stable -Ambulatory Status Ambulatory -Transportation Private Auto -Accompanied by Psych/Mental Status: Normal Affect, Appropriate Debridement Note Post-Debridement Measurements/Treatment WC - Nurse 2 - General Ulcer CM Notes Start: 07/25/20 10:35 Freq: Status: Active Protocol: Activity Type Activity Date Activity User E-Sign Co-Sign Detail Recorded Client Recorded Date Recorded By Document 07/25/20 13:32 PL [id number] 07/25/20 13:35 PL Document 08/01/20 14:42 PL [id number] 08/01/20 14:44 PL Document 08/08/20 14:14 PL [id number] 08/08/20 14:17 PL Document 08/15/20 12:01 PL [id number] 08/15/20 12:05 PL 07/25/20 08/01/20 08/08/20 13:32 14:42 14:14 Wound Center Nurse 2 #1 LLE Post -Time 11:35 12:10 11:26 -Correct Patient Yes Yes Yes -Correct Side, Site, Position Yes Yes Yes -Correct Procedure Yes Yes Yes -Procedure Performed Yes Yes Yes -Type of Procedure Debridement Debridement Debridement -Clinical Debridement Subcutaneous Subcutaneous Subcutaneous -Tissue Removed Subcutaneous Subcutaneous Subcutaneous -Post Debridement (cm) - Length 4.8 4.1 4.4 -Post Debridement (cm) - Width 3.0 2.7 2.5 -Post Debridement (cm) - Depth 0.4 0.3 0.1 -Total Square (Post) (cm) 14.40 11.07 11.00 -Area of Debridement (cm) - Length 4.8 4.1 4.4 -Area of Debridement (cm) - Width 3.0 2.7 2.5 -Total Square (Area) (cm) 14.40 11.07 11.00 -Tunneling No No No -Undermining/Tunneling No No No -Circular Undermining No No No -Wound/Ulcer Outcome Not Healed Not Healed Not Healed -Ulcer Cleansing Rinsed/ Rinsed/ Rinsed/ Irrigated with Irrigated with Irrigated with Saline Saline Saline -Foul Odor after Cleansing No No No -Bioengineered Tissue Yes Yes Yes -Type of Bioengineered Tissue PuraPly AM PuraPly AM PuraPly AM -Expiration Date 10/12/22 10/12/22 10/12/22 -Product Lot Number [id number] -Percent Used 100 100 100 -Lot number of Saline Used [id number] -Bleeding Controlled with Pressure Pressure Pressure -Treatment Response Procedure Procedure Procedure Tolerated Well Tolerated Well Tolerated Well -Debridement - Subq, 1st 20sq cm No No No -Apply Skin Sub - 1st 25 sq cm - Legs 1 1 1 -NuShield (per sq cm) -PuraPly AM (per sq cm) 16 16 16 Pain Scale: 0-10 Numeric Is Patient Pain Free? Yes Yes Yes 08/15/20 12:01 Wound Center Nurse 2 #1 LLE Post -Time 11:05 -Correct Patient Yes -Correct Side, Site, Position Yes -Correct Procedure Yes -Procedure Performed Yes -Type of Procedure Debridement -Clinical Debridement Subcutaneous -Tissue Removed Subcutaneous -Post Debridement (cm) - Length 4.2 -Post Debridement (cm) - Width 2.3 -Post Debridement (cm) - Depth 0.2 -Total Square (Post) (cm) 9.66 -Area of Debridement (cm) - Length 4.2 -Area of Debridement (cm) - Width 2.3 -Total Square (Area) (cm) 9.66 -Tunneling No -Undermining/Tunneling No -Circular Undermining No -Wound/Ulcer Outcome Not Healed -Ulcer Cleansing Rinsed/ Irrigated with Saline -Foul Odor after Cleansing No -Bioengineered Tissue Yes -Type of Bioengineered Tissue NuShield -Expiration Date 12/21/23 -Product Lot Number [id number] -Percent Used 100 -Lot number of Saline Used -Bleeding Controlled with Pressure -Treatment Response Procedure Tolerated Well -Debridement - Subq, 1st 20sq cm No -Apply Skin Sub - 1st 25 sq cm - Legs 1 -NuShield (per sq cm) 12 -PuraPly AM (per sq cm) Pain Scale: 0-10 Numeric Is Patient Pain Free? Yes WC - Nurse 3 - General Ulcer D/C NN Start: 07/25/20 10:35 Freq: Status: Active Protocol: Activity Type Activity Date Activity User E-Sign Co-Sign Detail Recorded Client Recorded Date Recorded By Document 07/25/20 12:16 KR [id number] 07/25/20 12:24 KR Document 08/01/20 12:43 KR [id number] 08/01/20 12:44 KR Document 08/08/20 11:45 KR [id number] 08/08/20 11:46 KR Document 08/15/20 11:36 KR [id number] 08/15/20 11:37 KR 07/25/20 08/01/20 08/08/20 12:16 12:43 11:45 Wound Care Nurse 3 #1 LLE Post -Primary Dressing Covered/Secured with Dry Gauze, Dry Gauze, Dry Gauze Secured with Secured with Tape Tape Right -Multi-Layered Wrap Application Multi-Layer Multi-Layer Multi-Layer Comp - Right ($ Comp - Right ($ Comp - Right ($ ) ) ) Vital Signs Blood Pressure (90/60-120/80) 128/71 H Blood Pressure Mean (mm Hg) 90 Source Monitor Position Semi-Fowlers Blood Pressure Location Right Arm Pain Scale: 0-10 Numeric Is Patient Pain Free? Yes Yes WC - Visit Discharge Discharge Condition Stable Stable Ambulatory Status Ambulatory Ambulatory Transportation Private Auto Private Auto Accompanied by 08/15/20 11:36 Wound Care Nurse 3 #1 LLE Post -Primary Dressing Covered/Secured with Dry Gauze Right -Multi-Layered Wrap Application Multi-Layer Comp - Right ($ ) Vital Signs Blood Pressure (90/60-120/80) Blood Pressure Mean (mm Hg) Source Position Blood Pressure Location Pain Scale: 0-10 Numeric Is Patient Pain Free? Yes WC - Visit Discharge Discharge Condition Stable Ambulatory Status Ambulatory Transportation Private Auto Accompanied by Wound debrided: Left posterior calf Laterality: Left Type of Debridement: Excisional debridement Anesthesia Used: 4% Lidocaine Solution Depth: in the subcutaneous layer Percentage of wound debrided: 100 Instrument Used: 7mm curette Tissue Removed: Slough and devitalized tissue Severity: Fat Layer Exposed Amount of bleeding with debridement: Moderate Bleeding Controlled with: Compression and gauze Patient tolerated procedure well Assessment/Plan Active Problems (Last Reviewed 07/16/19 @ 10:06 by Mona Thomas) Diabetic ulcer of left lower leg (Chronic) Chronic anticoagulation (Chronic) Essential hypertension (Chronic) Paroxysmal atrial fibrillation (Chronic) HLD (hyperlipidemia) (Chronic) Diabetes mellitus, type II (Chronic) Assessment: See above Plan: Debridement performed today in clinic. Given the duration of the wound and failure of the wound to respond to standard wound care, we have applied for advanced skin substitutes (approved for puraply, nushield, Apligraf). Patient has received 3 applications of Puraply. Nushield #1 (advanced skin sub #4) was applied today. Product was covered with Adaptic touch and secured with Steri- Strips. 3M compression was applied to the left lower extremity. At home wound- care instructions: Keep the wound dressing and 3M wraps clean and dry. Cover when showering. Off-loading: Avoid pressure at the site of the ulcer when seated. Avoid prolonged standing/dangling of legs. When seated, elevate feet at chest level. Walking is encouraged. Diet: Patient encouraged to increase protein and vitamin C intake while taking caution to avoid high carbohydrate and/or sugar intake. Labs/cultures/imaging: Doxycycline completed. No further antibiotics are warranted at this time. Routine baseline labwork (CBCD, CMP, hemoglobin A1c, CRP) revealed the following: CRP 13.7 (H), alk phos 159 (H), glucose 198 (H), creatinine 1.32 (H), estimated GFR 56 (L), hemoglobin A1c 7.7% (H). Bilateral lower extremity venous studies revealed numerous areas of venous incompetence, and patient was referred to vascular. Follow-up: Return to clinic in 1 week for re-evaluation. Patient was instructed to return sooner or report to the emergency room should symptoms worsen, or new symptoms arise. Note: [employer] speech recognition physician practice administrator software was used to create portions of this document. Sound-alike and misspelled words, as well as other physician practice administrator errors may be contained in the documentation. [id number]: [id number] Skin sub graft trnk/arm/leg
== END 2020-08-20 23:59 ==
LOC: WC 10:45
PROVIDERS: PCP Family Medicine; Referring Provider Nurse Practitioner Family; Visit Provider Nurse Practitioner Family
DX: E11.622 Type 2 diabetes mellitus with other skin ulcer (principal); I10 Essential (primary) hypertension; E78.5 Hyperlipidemia, unspecified; I48.0 Paroxysmal atrial fibrillation; Z79.01 Long term (current) use of anticoagulants; Z86.73 Personal history of transient ischemic attack (TIA), and cerebral infarction without residual deficits; L97.222 Non-pressure chronic ulcer of left calf with fat layer exposed; R60.9 Edema, unspecified; I83.022 Varicose veins of left lower extremity with ulcer of calf; I83.91 Asymptomatic varicose veins of right lower extremity
CPT/HCPCS: 15271; 29581; 93970; Q4160; Q4196

== ENCOUNTER 2020-09-19 10:15 | Outpatient (RCR) | payer MEDICARE, BC, OTHER, SELFPAY ==
[2020-08-21 00:45] VITALS: BP 142/90; PULSE 122; RESP 16; TEMP 36.1
[2020-08-22 10:49] VITALS: BP 151/117; PULSE 114; RESP 18; TEMP 35.8; BMI 27.4
--- NOTE | 2020-08-22 14:50 | PN.PCM_ITS ---
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 Code(s): E11.622 - Type 2 diabetes mellitus with other skin ulcer; L97.929 - Non-pressure chronic ulcer of unspecified part of left lower leg with unspecified severity (2) Diabetes mellitus, type II Status: Chronic Qualifiers: Code(s): E11.9 - Type 2 diabetes mellitus without complications (3) Chronic anticoagulation Status: Chronic Code(s): Z79.01 - [facility]FP (current) use of anticoagulants (4) Essential hypertension Status: Chronic Code(s): I10 - Essential (primary) hypertension (5) HLD (hyperlipidemia) Status: Chronic Qualifiers: Code(s): E78.5 - Hyperlipidemia, unspecified (6) Paroxysmal atrial fibrillation Status: Chronic Code(s): I48.0 - Paroxysmal atrial fibrillation Type of Wound Date of Service: 08/22/20 Chief Complaint: Left calf ulcer History of Wound: The patient presents to the wound healing center today (07/11/2020) for an initial evaluation of his left calf ulcer. He sees Dr. Masters for his primary care management, and was referred to the wound healing center by her. Patient has a past medical history significant for type 2 diabetes mellitus, essential hypertension, hyperlipidemia, paroxysmal atrial fibrillation, ischemic stroke, and chronic anticoagulation with warfarin. Patient states that around March or April 2020, he developed an ulceration of his left calf. He is unsure of any causative events/factors. The ulcer was present for several weeks before he sought treatment. His primary care provider had him using triple antibiotic ointment and nonadherent dressings for wound care. He has not been on any recent antibiotics. He denies drainage from his ulcer. The patient denies any fever, chills, nausea, vomiting, or diarrhea. Denies any increasing pain, redness, swelling, or purulent/malodorous drainage from affected area. Progress of Wound: The patient tolerated Nushield and 3M wraps well. The patient denies any fever, chills, nausea, vomiting, or diarrhea. Denies any purulent/malodorous drainage from affected area. Wound is improved in size and appearance this week. Periulcer erythema and edema have resolved. Culture collected on 07/18/2020 was positive for 1+ Staph aureus and Staph epidermidis (susceptible to doxycycline). He was started on doxycycline 100 mg p.o. twice daily and has completed this course. There are no clinical signs of infection today. Bilateral lower extremity venous studies demonstrated incompetence of the right saphenofemoral junction, segmental valvular incompetence within the great saphenous veins bilaterally, incompetent right small saphenous vein, incompetent right accessory saphenous vein in the right mid thigh, and a suspected popliteal cyst of the left popliteal space. He was instructed to schedule an appointment with vascular (Dr. Tirado or Dr. Be), but has not yet done so. - Physical Exam Vital Signs Temp Pulse Resp BP 96.5 F L 114 H 18 151/117 H 08/22/20 10:49 08/22/20 10:49 08/22/20 10:49 08/22/20 10:49 General: Alert, Cooperative, No apparent distress HEENT: Atraumatic, Normocephalic Oral: Moist Mucosa Lungs: Normal air movement Cardiovascular: Irregular Rate - Irregularly irregular Extremities: No clubbing, No cyanosis, No edema, Capillary Refill Less than 3 Se conds, Peripheral Pulses Normal Skin: Ulcer/ Wound - Ulcer improved in size with good granulation tissue. Small amount of slough in devitalized tissue present. No tunneling, undermining, or probing to bone. No periulcer erythema, warmth or tenderness. No malodorous or purulent drainage. Wound Measurements and Assessment WC - Nurse 1 - General Ulcer Measurement Start: 08/22/20 10:48 Freq: Status: Active Protocol: Activity Type Activity Date Activity User E-Sign Co-Sign Detail Recorded Client Recorded Date Recorded By Document 08/22/20 10:49 TN [id number] 08/22/20 11:00 MS 08/22/20 10:49 Wound Center Nurse 1 [Ulcer Assessment] #1 LLE Post -Current Size (cm) - Length 3.2 -Current Size (cm) - Width 2 -Current Size (cm) - Depth 0.1 -Total Square Cm 6.4 -Exudate Amt Medium -Exudate Type Serosanguineous -Wound Margin Distinct, Outline Attached -Granulation Amt Medium (34-66%) -Necrosis Amt Medium (34-66%) -Necrotic Tissue Type Adherent Slough -Texture (Tasneem-wound Skin Appearance) No Abnormality -Moisture (Tasneem-wound Skin Appearance No Abnormality ) -Color (Tasneem-wound Skin Appearance) No Abnormality -Temperature (Tasneem-wound Skin No Abnormality Appearance) (Pt Warm) -Tenderness on Palpation (Tasneem-wound No Skin Appearance) -Ulcer Cleansing soap and water -Foul Odor after Cleansing No -Anesthetic Used 4% Lidocaine Solution Psych/Mental Status: Normal Affect, Appropriate Debridement Note Wound debrided: Left posterior calf Laterality: Left Type of Debridement: Excisional debridement Anesthesia Used: 5% Lidocaine Gel Depth: in the subcutaneous layer Percentage of wound debrided: 100 Instrument Used: 7mm curette Tissue Removed: Slough and devitalized tissue Severity: Fat Layer Exposed Amount of bleeding with debridement: Mild Bleeding Controlled with: Pressure Patient tolerated procedure well Assessment/Plan Assessment: See above Plan: Debridement performed today in clinic. Given the duration of the wound and failure of the wound to respond to standard wound care, we have applied for advanced skin substitutes (approved for puraply, nushield, Apligraf). Patient has received 3 applications of Puraply and 1 application of Nushield. Apligraf #1 (advanced skin sub #5) was applied today. 100% of product was used. Product was covered with Adaptic touch and secured with Steri-Strips. 3M compression was applied to the left lower extremity. At home wound-care instructions: Keep the wound dressing and 3M wraps clean and dry. Cover when showering. Off- loading: Avoid pressure at the site of the ulcer when seated. Avoid prolonged standing/dangling of legs. When seated, elevate feet at chest level. Walking is encouraged. Diet: Patient encouraged to increase protein and vitamin C intake while taking caution to avoid high carbohydrate and/or sugar intake. Labs/cultures/imaging: Doxycycline completed. No further antibiotics are warranted at this time. Routine baseline labwork (CBCD, CMP, hemoglobin A1c, CRP) revealed the following: CRP 13.7 (H), alk phos 159 (H), glucose 198 (H), creatinine 1.32 (H), estimated GFR 56 (L), hemoglobin A1c 7.7% (H). Bilateral lower extremity venous studies revealed numerous areas of venous incompetence, and patient was referred to vascular. Follow-up: Return to clinic in 1 week for re-evaluation. Patient was instructed to return sooner or report to the emergency room should symptoms worsen, or new symptoms arise. Note: [employer] speech recognition survey methodologist software was used to create portions of this document. Sound-alike and misspelled words, as well as other survey methodologist errors may be contained in the documentation. [id number]: [id number] Skin sub graft trnk/arm/leg
[2020-08-29 09:56] VITALS: BP 180/96; PULSE 105; TEMP 35.9; BMI 27.4
--- NOTE | 2020-08-29 12:39 | PN.PCM_ITS ---
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 Code(s): E11.622 - Type 2 diabetes mellitus with other skin ulcer; L97.929 - Non-pressure chronic ulcer of unspecified part of left lower leg with unspecified severity (2) Diabetes mellitus, type II Status: Chronic Qualifiers: Code(s): E11.9 - Type 2 diabetes mellitus without complications (3) Chronic anticoagulation Status: Chronic Code(s): Z79.01 - group home (current) use of anticoagulants (4) Essential hypertension Status: Chronic Code(s): I10 - Essential (primary) hypertension (5) HLD (hyperlipidemia) Status: Chronic Qualifiers: Code(s): E78.5 - Hyperlipidemia, unspecified (6) Paroxysmal atrial fibrillation Status: Chronic Code(s): I48.0 - Paroxysmal atrial fibrillation Type of Wound Date of Service: 08/29/20 Chief Complaint: Left calf ulcer History of Wound: The patient presents to the wound healing center today (07/11/2020) for an initial evaluation of his left calf ulcer. He sees Dr. Masters for his primary care management, and was referred to the wound healing center by her. Patient has a past medical history significant for type 2 diabetes mellitus, essential hypertension, hyperlipidemia, paroxysmal atrial fibrillation, ischemic stroke, and chronic anticoagulation with warfarin. Patient states that around March or April 2020, he developed an ulceration of his left calf. He is unsure of any causative events/factors. The ulcer was present for several weeks before he sought treatment. His primary care provider had him using triple antibiotic ointment and nonadherent dressings for wound care. He has not been on any recent antibiotics. He denies drainage from his ulcer. The patient denies any fever, chills, nausea, vomiting, or diarrhea. Denies any increasing pain, redness, swelling, or purulent/malodorous drainage from affected area. Progress of Wound: The patient tolerated Apligraf and 3M wraps well. He has some periulcer excoriation which I suspect is from adhesive/steri strips. The patient denies any fever, chills, nausea, vomiting, or diarrhea. Denies any purulent/malodorous drainage from affected area. Wound is improved in size and appearance this week. Periulcer erythema and edema have resolved. Culture collected on 07/18/2020 was positive for 1+ Staph aureus and Staph epidermidis (susceptible to doxycycline). He was started on doxycycline 100 mg p.o. twice daily and has completed this course. There are no clinical signs of infection today. Bilateral lower extremity venous studies demonstrated incompetence of the right saphenofemoral junction, segmental valvular incompetence within the great saphenous veins bilaterally, incompetent right small saphenous vein, incompetent right accessory saphenous vein in the right mid thigh, and a suspected popliteal cyst of the left popliteal space. He was instructed to schedule an appointment with vascular (Dr. Tirado or Dr. Be), but has not yet done so. - Physical Exam Vital Signs Temp Pulse Resp BP 96.7 F L 105 H 18 180/96 H 08/29/20 09:56 08/29/20 09:56 08/22/20 10:49 08/29/20 09:56 General: Alert, Cooperative, No apparent distress HEENT: Atraumatic, Normocephalic Oral: Moist Mucosa Neck: Trachea Midline Lungs: Normal air movement Extremities: No clubbing, No cyanosis, No edema, Capillary Refill Less than 3 Seconds, Peripheral Pulses Normal Skin: Ulcer/ Wound - Ulcer improved in size with good granulation tissue. Small amount of slough in devitalized tissue present. No tunneling, undermining, or probing to bone. No periulcer erythema, warmth or tenderness. No malodorous or purulent drainage., Excoriated Wound Measurements and Assessment WC - Nurse 1 - General Ulcer Measurement Start: 08/22/20 10:48 Freq: Status: Active Protocol: Activity Type Activity Date Activity User E-Sign Co-Sign Detail Recorded Client Recorded Date Recorded By Document 08/29/20 09:56 JOHNATHON [id number] 08/29/20 10:03 JOHNATHON 08/29/20 09:56 Wound Center Nurse 1 [Ulcer Assessment] #1 LLE Post -Current Size (cm) - Length 3.5 -Current Size (cm) - Width 2.7 -Current Size (cm) - Depth 0.1 -Total Square Cm 9.45 -Exudate Amt Medium -Exudate Type Serosanguineous -Wound Margin Distinct, Outline Attached -Granulation Amt Large (67-100%) -Granulation Quality Red -Necrosis Amt None Present (0 %) -Texture (Tasneem-wound Skin Appearance) Assessed, Scarring -Moisture (Tasneem-wound Skin Appearance No Abnormality, ) Assessed -Color (Tasneem-wound Skin Appearance) No Abnormality, Assessed -Temperature (Tasneem-wound Skin No Abnormality Appearance) (Pt Warm) -Tenderness on Palpation (Tasneem-wound No Skin Appearance) -Ulcer Cleansing soap and water -Foul Odor after Cleansing No -Anesthetic Used 4% Lidocaine Solution [Edema Assessment] -Left Calf (cm) 35.5 -Left Ankle (cm) 22 WC - Nurse 3 - General Ulcer D/C NN Start: 08/22/20 10:48 Freq: Status: Active Protocol: Activity Type Activity Date Activity User E-Sign Co-Sign Detail Recorded Client Recorded Date Recorded By Document 08/29/20 10:28 MS [id number] 08/29/20 10:30 MS 08/29/20 10:28 Wound Care Nurse 3 [Wound Dressing] #1 LLE Post -Other Dressing adaptic touch [Compression Applied] Left -Multi-Layered Wrap Application Unna Boot - Left ($) Pain Scale: 0-10 Numeric [Pain] -Is Patient Pain Free? Yes Psych/Mental Status: Normal Affect, Appropriate Debridement Note Post-Debridement Measurements/Treatment - Nurse 2 - General Ulcer CM Notes Start: 08/22/20 10:48 Freq: Status: Active Protocol: Activity Type Activity Date Activity User E-Sign Co-Sign Detail Recorded Client Recorded Date Recorded By Document 08/22/20 15:35 PL [id number] 08/22/20 15:37 PL 08/22/20 15:35 Wound Center Nurse 2 #1 LLE Post -Time 11:12 -Correct Patient Yes -Correct Side, Site, Position Yes -Correct Procedure Yes -Procedure Performed Yes -Type of Procedure Debridement -Clinical Debridement Subcutaneous -Tissue Removed Subcutaneous -Post Debridement (cm) - Length 3.9 -Post Debridement (cm) - Width 2.1 -Post Debridement (cm) - Depth 0.1 -Total Square (Post) (cm) 8.19 -Area of Debridement (cm) - Length 3.9 -Area of Debridement (cm) - Width 2.1 -Total Square (Area) (cm) 8.19 -Tunneling No -Undermining/Tunneling No -Circular Undermining No -Wound/Ulcer Outcome Not Healed -Ulcer Cleansing Rinsed/ Irrigated with Saline -Foul Odor after Cleansing No -Bioengineered Tissue Yes -Type of Bioengineered Tissue Apligraf -Expiration Date 09/02/20 -Product Lot Number [id number] -Percent Used 100 -Lot number of Saline Used [id number] -Bleeding Controlled with Pressure -Treatment Response Procedure Tolerated Well -Debridement - Subq, 1st 20sq cm No -Apply Skin Sub - 1st 25 sq cm - Legs 1 -Apligraf (per sq cm) 44 WC - Nurse 3 - General Ulcer D/C NN Start: 08/22/20 10:48 Freq: Status: Active Protocol: Activity Type Activity Date Activity User E-Sign Co-Sign Detail Recorded Client Recorded Date Recorded By Document 08/22/20 15:37 PL [id number] 08/22/20 15:37 PL Document 08/29/20 10:28 MS [id number] 08/29/20 10:30 MS 08/22/20 08/29/20 15:37 10:28 Wound Care Nurse 3 #1 LLE Post -Other Dressing adaptic touch -Primary Dressing Covered/Secured with Dry Gauze Left -Multi-Layered Wrap Application Multi-Layer Unna Boot - Comp - Left ($) Left ($) Pain Scale: 0-10 Numeric Is Patient Pain Free? Yes Yes Wound debrided: Left posterior calf Laterality: Left Type of Debridement: Excisional debridement Anesthesia Used: 4% Lidocaine Solution, Cetacaine Depth: in the subcutaneous layer Percentage of wound debrided: 100 Instrument Used: 7mm curette Tissue Removed: Slough and devitalized tissue Severity: Fat Layer Exposed Amount of bleeding with debridement: Mild Bleeding Controlled with: Pressure Patient tolerated procedure well Assessment/Plan Active Problems (Last Reviewed 07/16/19 @ 10:06 by Mona Thomas) Diabetic ulcer of left lower leg (Chronic) Chronic anticoagulation (Chronic) Essential hypertension (Chronic) Paroxysmal atrial fibrillation (Chronic) HLD (hyperlipidemia) (Chronic) Diabetes mellitus, type II (Chronic) Assessment: See above Plan: Debridement performed today in clinic. Given the duration of the wound and failure of the wound to respond to standard wound care, we applied for advanced skin substitutes (approved for puraply, nushield, Apligraf). Patient has received 3 applications of Puraply, 1 application of Nushield and 1 application of Apligraf. Apligraf #2 (advanced skin sub #6) was applied today. 100% of product was used. Product was covered with Adaptic touch and secured with Steri-Strips. Covered with gauze. Unna boot was applied to the left lower extremity. At home wound-care instructions: Keep the wound dressing and Unna boot clean and dry. Cover when showering. Off-loading: Avoid pressure at the site of the ulcer when seated. Avoid prolonged standing/dangling of legs. When seated, elevate feet at chest level. Walking is encouraged. Diet: Patient encouraged to increase protein and vitamin C intake while taking caution to avoid high carbohydrate and/or sugar intake. Labs/cultures/imaging: Doxycycline completed. No further antibiotics are warranted at this time. Routine baseline labwork (CBCD, CMP, hemoglobin A1c, CRP) revealed the following: CRP 13.7 (H), alk phos 159 (H), glucose 198 (H), creatinine 1.32 (H), estimated GFR 56 (L), hemoglobin A1c 7.7% (H). Bilateral lower extremity venous studies revealed numerous areas of venous incompetence, and patient was referred to vascular. Follow-up: Return to clinic in 1 week for re-evaluation. Patient was instructed to return sooner or report to the emergency room should symptoms worsen, or new symptoms arise. Note: [employer] speech recognition grades 1 thru 6 home teacher software was used to create portions of this document. Sound-alike and misspelled words, as well as other grades 1 thru 6 home teacher errors may be contained in the documentation. [id number]: [id number] Skin sub graft trnk/arm/leg
[2020-09-05 10:18] VITALS: BP 143/109; PULSE 107; RESP 16; TEMP 36; BMI 27.4
--- NOTE | 2020-09-05 13:42 | PCM.WC.PN ---
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 Code(s): E11.622 - Type 2 diabetes mellitus with other skin ulcer; L97.929 - Non-pressure chronic ulcer of unspecified part of left lower leg with unspecified severity (2) Diabetes mellitus, type II Status: Chronic Qualifiers: Code(s): E11.9 - Type 2 diabetes mellitus without complications (3) Chronic anticoagulation Status: Chronic Code(s): Z79.01 - halfway (current) use of anticoagulants (4) Essential hypertension Status: Chronic Code(s): I10 - Essential (primary) hypertension (5) HLD (hyperlipidemia) Status: Chronic Qualifiers: Code(s): E78.5 - Hyperlipidemia, unspecified (6) Paroxysmal atrial fibrillation Status: Chronic Code(s): I48.0 - Paroxysmal atrial fibrillation Type of Wound Date of Service: 09/05/20 Chief Complaint: Left calf ulcer History of Wound: The patient presents to the wound healing center today (07/11/2020) for an initial evaluation of his left calf ulcer. He sees Dr. Masters for his primary care management, and was referred to the wound healing center by her. Patient has a past medical history significant for type 2 diabetes mellitus, essential hypertension, hyperlipidemia, paroxysmal atrial fibrillation, ischemic stroke, and chronic anticoagulation with warfarin. Patient states that around March or April 2020, he developed an ulceration of his left calf. He is unsure of any causative events/factors. The ulcer was present for several weeks before he sought treatment. His primary care provider had him using triple antibiotic ointment and nonadherent dressings for wound care. He has not been on any recent antibiotics. He denies drainage from his ulcer. The patient denies any fever, chills, nausea, vomiting, or diarrhea. Denies any increasing pain, redness, swelling, or purulent/malodorous drainage from affected area. Progress of Wound: The patient tolerated Apligraf and Unna boot well. He still has some periulcer excoriation which I suspect is from adhesive/steri strips; this is mildly improved from last week. His wound has improved in size and appearance in the past week. The patient denies any fever, chills, nausea, vomiting, or diarrhea. Denies any purulent/malodorous drainage from affected area. Wound is improved in size and appearance this week. Periulcer erythema and edema have resolved. Culture collected on 07/18/2020 was positive for 1+ Staph aureus and Staph epidermidis (susceptible to doxycycline). He was started on doxycycline 100 mg p.o. twice daily and has completed this course. There are no clinical signs of infection today. Bilateral lower extremity venous studies demonstrated incompetence of the right saphenofemoral junction, segmental valvular incompetence within the great saphenous veins bilaterally, incompetent right small saphenous vein, incompetent right accessory saphenous vein in the right mid thigh, and a suspected popliteal cyst of the left popliteal space. He was instructed to schedule an appointment with vascular (Dr. Tirado or Dr. Be), but has not yet done so. - Physical Exam Vital Signs Temp Pulse Resp BP 96.8 F L 107 H 16 143/109 H 09/05/20 10:18 09/05/20 10:18 09/05/20 10:18 09/05/20 10:18 General: Alert, Cooperative, No apparent distress HEENT: Atraumatic, Normocephalic Oral: Moist Mucosa Neck: Supple, Trachea Midline Lungs: Normal air movement Extremities: No clubbing, No cyanosis, No edema, Capillary Refill Less than 3 Seconds, Peripheral Pulses Normal Skin: Ulcer/ Wound - Ulcer improved in size with good granulation tissue. Small amount of slough in devitalized tissue present. No tunneling, undermining, or probing to bone. No periulcer erythema, warmth or tenderness. No malodorous or purulent drainage., Excoriated Wound Measurements and Assessment WC - Nurse 1 - General Ulcer Measurement Start: 08/22/20 10:48 Freq: Status: Active Protocol: Activity Type Activity Date Activity User E-Sign Co-Sign Detail Recorded Client Recorded Date Recorded By Document 09/05/20 10:18 [facility] [id number] 09/05/20 10:19 [facility] 09/05/20 10:18 Wound Center Nurse 1 [Ulcer Assessment] #1 LLE Post -Combined with other wound No -Current Size (cm) - Length 3.3 -Current Size (cm) - Width 1.7 -Current Size (cm) - Depth 0.1 -Total Square Cm 5.61 -Photo Taken No -Epithelialization None Present -Tunneling No -Undermining/Tunneling No -Circular Undermining No -Exudate Amt Medium -Exudate Type Serosanguineous -Wound Margin Distinct, Outline Attached -Granulation Amt Large (67-100%) -Granulation Quality Hyper- granulation,Red -Slough/Fibrin Yes -Necrosis Amt Small (1-33%) -Necrotic Tissue Type Adherent Slough -Texture (Tasneem-wound Skin Appearance) Assessed, Scarring -Moisture (Tasneem-wound Skin Appearance Assessed,Dry/ ) Scaly -Color (Tasneem-wound Skin Appearance) Assessed -Temperature (Tasneem-wound Skin No Abnormality Appearance) (Pt Warm) -Tenderness on Palpation (Tasneem-wound No Skin Appearance) -Ulcer Cleansing soapy water -Foul Odor after Cleansing No -Anesthetic Used 4% Lidocaine Solution [Edema Assessment] -Lower Limb Edema Present Yes -Right Calf (cm) 37.5 -Right Ankle (cm) 21.4 WC - Nurse 2 - General Ulcer CM Notes Start: 08/22/20 10:48 Freq: Status: Active Protocol: Activity Type Activity Date Activity User E-Sign Co-Sign Detail Recorded Client Recorded Date Recorded By Document 09/05/20 13:13 PL [id number] 09/05/20 13:16 PL 09/05/20 13:13 Wound Center Nurse 2 [Procedure/Treatment] #1 LLE Post -Time 10:11 -Correct Patient Yes -Correct Side, Site, Position Yes -Correct Procedure Yes -Procedure Performed Yes -Type of Procedure Debridement -Clinical Debridement Subcutaneous -Tissue Removed Subcutaneous -Post Debridement (cm) - Length 3.4 -Post Debridement (cm) - Width 1.7 -Post Debridement (cm) - Depth 0.1 -Total Square (Post) (cm) 5.78 -Area of Debridement (cm) - Length 3.4 -Area of Debridement (cm) - Width 1.7 -Total Square (Area) (cm) 5.78 -Tunneling No -Undermining/Tunneling No -Circular Undermining No -Wound/Ulcer Outcome Not Healed -Ulcer Cleansing Rinsed/ Irrigated with Saline -Foul Odor after Cleansing No -Bioengineered Tissue Yes -Type of Bioengineered Tissue Apligraf -Expiration Date 09/09/20 -Product Lot Number [id number] -Percent Used 100 -Lot number of Saline Used [id number] -Bleeding Controlled with Pressure -Treatment Response Procedure Tolerated Well -Debridement - Subq, 1st 20sq cm No -Apply Skin Sub - 1st 25 sq cm - Legs 1 -Apligraf (per sq cm) 44 Query Text:1 sheet = 44 sq cm [See Physician Procedure note for Specifics] Pain Scale: 0-10 Numeric [Pain] -Is Patient Pain Free? Yes - Nurse 3 - General Ulcer D/C NN Start: 08/22/20 10:48 Freq: Status: Active Protocol: Activity Type Activity Date Activity User E-Sign Co-Sign Detail Recorded Client Recorded Date Recorded By Document 09/05/20 10:27 [facility] [id number] 09/05/20 10:28 [facility] 09/05/20 10:27 Wound Care Nurse 3 [Wound Dressing] #1 LLE Post -Other Dressing apligraph -Primary Dressing Covered/Secured Dry Gauze,Other with -Other Covering unna boot per k ruminski machine joint cutter [Compression Applied] Left -Multi-Layered Wrap Application Unna Boot - Left ($) -Compression Wrap Unna Boot ($) ( single) -Other unna per k ruminski machine joint cutter [Post Procedure Tolerated] -Treatment Response Procedure Tolerated Well Pain Scale: 0-10 Numeric [Pain] -Is Patient Pain Free? Yes - Visit Discharge [Visit Discharge Information] -Discharge Condition Stable -Ambulatory Status Ambulatory -Transportation Private Auto Psych/Mental Status: Normal Affect, Appropriate Debridement Note Post-Debridement Measurements/Treatment - Nurse 2 - General Ulcer CM Notes Start: 08/22/20 10:48 Freq: Status: Active Protocol: Activity Type Activity Date Activity User E-Sign Co-Sign Detail Recorded Client Recorded Date Recorded By Document 08/22/20 15:35 [id number] 08/22/20 15:37 PL Document 08/29/20 13:31 PL [id number] 08/29/20 13:34 PL Document 09/05/20 13:13 PL [id number] 09/05/20 13:16 PL 08/22/20 08/29/20 09/05/20 15:35 13:31 13:13 Wound Center Nurse 2 #1 LLE Post -Time 11:12 10:09 10:11 -Correct Patient Yes Yes Yes -Correct Side, Site, Position Yes Yes Yes -Correct Procedure Yes Yes Yes -Procedure Performed Yes Yes Yes -Type of Procedure Debridement Debridement Debridement -Clinical Debridement Subcutaneous Subcutaneous Subcutaneous -Tissue Removed Subcutaneous Subcutaneous Subcutaneous -Post Debridement (cm) - Length 3.9 3.6 3.4 -Post Debridement (cm) - Width 2.1 1.8 1.7 -Post Debridement (cm) - Depth 0.1 0.1 0.1 -Total Square (Post) (cm) 8.19 6.48 5.78 -Area of Debridement (cm) - Length 3.9 3.6 3.4 -Area of Debridement (cm) - Width 2.1 1.8 1.7 -Total Square (Area) (cm) 8.19 6.48 5.78 -Tunneling No No No -Undermining/Tunneling No No No -Circular Undermining No No No -Wound/Ulcer Outcome Not Healed Not Healed Not Healed -Ulcer Cleansing Rinsed/ Rinsed/ Rinsed/ Irrigated with Irrigated with Irrigated with Saline Saline Saline -Foul Odor after Cleansing No No No -Bioengineered Tissue Yes Yes Yes -Type of Bioengineered Tissue Apligraf Apligraf Apligraf -Expiration Date 09/02/20 09/02/20 09/09/20 -Product Lot Number [id number] -Percent Used 100 100 100 -Lot number of Saline Used [id number] -Bleeding Controlled with Pressure Pressure Pressure -Treatment Response Procedure Procedure Procedure Tolerated Well Tolerated Well Tolerated Well -Debridement - Subq, 1st 20sq cm No No No -Apply Skin Sub - 1st 25 sq cm - Legs 1 1 1 -Apligraf (per sq cm) 44 44 44 Query Text:1 sheet = 44 sq cm Pain Scale: 0-10 Numeric Is Patient Pain Free? Yes Yes - Nurse 3 - General Ulcer D/C NN Start: 08/22/20 10:48 Freq: Status: Active Protocol: Activity Type Activity Date Activity User E-Sign Co-Sign Detail Recorded Client Recorded Date Recorded By Document 08/22/20 15:37 PL [id number] 08/22/20 15:37 PL Document 08/29/20 10:28 MS [id number] 08/29/20 10:30 MS Document 09/05/20 10:27 [facility] [id number] 09/05/20 10:28 BMF 08/22/20 08/29/2009/05/21 15:37 10:28 10:27 Wound Care Nurse 3 #1 LLE Post -Other Dressing adaptic touch apligraph -Primary Dressing Covered/Secured with Dry Gauze Dry Gauze,Other -Other Covering unna boot per k shaeski machine joint cutter Left -Multi-Layered Wrap Application Multi-Layer Unna Boot - Unna Boot - Comp - Left ($) Left ($) Left ($) -Compression Wrap Unna Boot ($) ( single) -Other unna per k shaeski machine joint cutter Treatment Response Procedure Tolerated Well Pain Scale: 0-10 Numeric Is Patient Pain Free? Yes Yes Yes WC - Visit Discharge Discharge Condition Stable Ambulatory Status Ambulatory Transportation Private Auto Wound debrided: Left posterior calf Laterality: Left Wound Grade/Stage: Pires 1 Type of Debridement: Excisional debridement Anesthesia Used: 4% Lidocaine Solution Depth: in the subcutaneous layer Percentage of wound debrided: 100 Tissue Removed: Slough and devitalized tissue Severity: Fat Layer Exposed Amount of bleeding with debridement: Moderate Bleeding Controlled with: Compression and gauze Patient tolerated procedure well Assessment/Plan Active Problems (Last Reviewed 07/16/19 @ 10:06 by Mona Thomas) Diabetic ulcer of left lower leg (Chronic) Chronic anticoagulation (Chronic) Essential hypertension (Chronic) Paroxysmal atrial fibrillation (Chronic) HLD (hyperlipidemia) (Chronic) Diabetes mellitus, type II (Chronic) Assessment: See above Plan: Debridement performed today in clinic. Given the duration of the wound and failure of the wound to respond to standard wound care, we applied for advanced skin substitutes (approved for puraply, nushield, Apligraf). Patient has received 3 applications of Puraply, 1 applications of Nushield and 2 applications of Apligraf. Apligraf #3 (advanced skin sub #7) was applied today to the left posterior calf. 100% of product was used. Product was covered with a wound veil and secured with Steri-Strips. Covered with gauze. Unna boot was applied to the left lower extremity. At home wound-care instructions: Keep the wound dressing and Unna boot clean and dry. Cover when showering. Off-loading: Avoid pressure at the site of the ulcer when seated. Avoid prolonged standing/dangling of legs. When seated, elevate feet at chest level. Walking is encouraged. Diet: Patient encouraged to increase protein and vitamin C intake while taking caution to avoid high carbohydrate and/or sugar intake. Labs/cultures/imaging: Doxycycline completed. No further antibiotics are warranted at this time. Routine baseline labwork (CBCD, CMP, hemoglobin A1c, CRP) revealed the following: CRP 13.7 (H), alk phos 159 (H), glucose 198 (H), creatinine 1.32 (H), estimated GFR 56 (L), hemoglobin A1c 7.7% (H). Bilateral lower extremity venous studies revealed numerous areas of venous incompetence, and patient was referred to vascular. Follow-up: Return to clinic in 1 week for a nurse visit to have Unna boots changed. Return to clinic in 2 weeks for reevaluation with a provider. Patient was instructed to return sooner or report to the emergency room should symptoms worsen, or new symptoms arise. Note: [employer] speech recognition optometric assistant software was used to create portions of this document. Sound-alike and misspelled words, as well as other optometric assistant errors may be contained in the documentation. [id number]-[id number]: [id number] Skin sub graft trnk/arm/leg
[2020-09-12 12:04] VITALS: BP 148/93; PULSE 79; RESP 18; TEMP 36.4; BMI 27.4
[2020-09-19 10:20] VITALS: BP 142/90; PULSE 75; TEMP 36.2; BMI 27.4
--- NOTE | 2020-09-19 14:02 | PCM.WC.PN ---
History of Present Illness Date of Service: 09/19/20 Chief Complaint: Left calf ulcer History of Wound: The patient presents to the wound healing center today (07/11/2020) for an initial evaluation of his left calf ulcer. He sees Dr. Masters for his primary care management, and was referred to the wound healing center by her. Patient has a past medical history significant for type 2 diabetes mellitus, essential hypertension, hyperlipidemia, paroxysmal atrial fibrillation, ischemic stroke, and chronic anticoagulation with warfarin. Patient states that around March or April 2020, he developed an ulceration of his left calf. He is unsure of any causative events/factors. The ulcer was present for several weeks before he sought treatment. His primary care provider had him using triple antibiotic ointment and nonadherent dressings for wound care. He has not been on any recent antibiotics. He denies drainage from his ulcer. The patient denies any fever, chills, nausea, vomiting, or diarrhea. Denies any increasing pain, redness, swelling, or purulent/malodorous drainage from affected area. Progress of Wound: The patient tolerated Apligraf and Unna boot well. His last Apligraf was left in place for 2 weeks. He returned for an Unna boot change after 1 week. His periulcer excoriation has resolved. His wound has improved significantly in size and appearance. The patient denies fever, chills, nausea, vomiting, or diarrhea. The patient has not had increased redness, swelling, or purulent/malodorous drainage from affected area. 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 Code(s): E11.622 - Type 2 diabetes mellitus with other skin ulcer; L97.929 - Non-pressure chronic ulcer of unspecified part of left lower leg with unspecified severity (2) Chronic anticoagulation: Status: Chronic Code(s): Z79.01 - skilled nursing (current) use of anticoagulants (3) Essential hypertension: Status: Chronic Code(s): I10 - Essential (primary) hypertension (4) Paroxysmal atrial fibrillation: Status: Chronic Code(s): I48.0 - Paroxysmal atrial fibrillation (5) Diabetes mellitus, type II: Status: Chronic Code(s): E11.9 - Type 2 diabetes mellitus without complications Qualifiers: Diabetes mellitus manager intermediate insulin use: without senior care use Diabetes mellitus complication status: with skin complications Diabetes mellitus complication detail: with other skin ulcer Qualified Code(s): E11.622 - Type 2 diabetes mellitus with other skin ulcer (6) HLD (hyperlipidemia): Status: Chronic Code(s): E78.5 - Hyperlipidemia, unspecified Qualifiers: Hyperlipidemia type: unspecified Qualified Code(s): E78.5 - Hyperlipidemia, unspecified Plan: Debridement performed today in clinic. Given the duration of the wound and failure of the wound to respond to standard wound care, we applied for advanced skin substitutes (approved for puraply, nushield, Apligraf). Patient has received 3 applications of Puraply, 1 applications of Nushield and 3 applications of Apligraf. Nushield #2 (advanced skin sub #8) was applied today to the left posterior calf. 100% of product was used. Product was covered with a wound veil and secured with Steri-Strips. Covered with gauze. Unna boot was applied to the left lower extremity. At home wound-care instructions: Keep the wound dressing and Unna boot clean and dry. Cover when showering. Off-loading: Avoid pressure at the site of the ulcer when seated. Avoid prolonged standing/dangling of legs. When seated, elevate feet at chest level. Walking is encouraged. Diet: Patient encouraged to increase protein and vitamin C intake while taking caution to avoid high carbohydrate and/or sugar intake. Labs/cultures/imaging: Doxycycline completed. No further antibiotics are warranted at this time. Routine baseline labwork (CBCD, CMP, hemoglobin A1c, CRP) revealed the following: CRP 13.7 (H), alk phos 159 (H), glucose 198 (H), creatinine 1.32 (H), estimated GFR 56 (L), hemoglobin A1c 7.7% (H). Bilateral lower extremity venous studies revealed numerous areas of venous incompetence, and patient was referred to vascular. He has not yet been seen by vascular. Follow-up: Return to clinic in 1 week for a nurse visit to have Unna boots changed. Return to clinic in 2 weeks for reevaluation with a provider. Patient was instructed to return sooner or report to the emergency room should symptoms worsen, or new symptoms arise. Note: [employer] speech recognition patient services representative software was used to create portions of this document. Sound-alike and misspelled words, as well as other patient services representative errors may be contained in the documentation. Charges/Coding Procedures Integumentary [id number]-[id number]: [id number] Skin sub graft trnk/arm/leg Physical Exam Const alert, no apparent distress and healthy appearing General Appearance: cooperative, comfortable and well kempt HEENT Head and Scalp: normocephalic and atraumatic Neck supple and no JVD Resp normal respiratory effort, normal air movement and no use of accessory muscles GI non-distended Palpation: soft Extremity normal capillary refill, no joint enlargement, no calf tenderness and no pedal edema General Extremity: Negative for clubbing or cyanosis Peripheral Pulses: Yes dorsalis pedis pulses present left 2+ Skin Wounds: wounds noted No drainage, No malodorous and No surrounding erythema Wound Narrative: Left lower extremity ulcer is improved in size and appearance. Good granulation tissue present. Scant slough and devitalized tissue present. No tunneling, undermining, or probing to bone. No periulcer erythema, warmth or tenderness. Pain is much improved today. No malodorous or purulent drainage. Neuro moves all extremities Sensorium / Orientation: awake and alert Psych mental status grossly normal, cooperative and affect normal Appearance: grossly normal Debridement Note Debridement Note Post-Debridement Measurements and Additional Note: Post-Debridement Measurements/Treatment WC - Nurse 2 - General Ulcer CM Notes Start: 08/22/20 10:48 Freq: Status: Active Protocol: Activity Type Activity Date Activity User E-Sign Co-Sign Detail Recorded Client Recorded Date Recorded By Document 08/22/20 15:35 PL [id number] 08/22/20 15:37 PL Document 08/29/20 13:31 PL [id number] 08/29/20 13:34 PL Document 09/05/20 13:13 PL [id number] 09/05/20 13:16 PL Edit Result 09/05/20 13:13 PL (1) [id number] 09/05/20 13:24 PL Document 09/19/20 13:41 PL [id number] 09/19/20 13:47 PL (1) #1 LLE Post - Type of Bioengineered Tissue Epifix Mesh => Apligraf - Expiration Date 06/23/25 => 09/09/20 - Product Lot Number [id number] => [id number] - Apligraf (per sq cm) => 44 - Epifix Mesh (per sq cm) 11 => 08/22/20 08/29/20 09/05/20 15:35 13:31 13:13 Wound Center Nurse 2 #1 LLE Post -Time 11:12 10:09 10:11 -Correct Patient Yes Yes Yes -Correct Side, Site, Position Yes Yes Yes -Correct Procedure Yes Yes Yes -Procedure Performed Yes Yes Yes -Type of Procedure Debridement Debridement Debridement -Clinical Debridement Subcutaneous Subcutaneous Subcutaneous -Tissue Removed Subcutaneous Subcutaneous Subcutaneous -Post Debridement (cm) - Length 3.9 3.6 3.4 -Post Debridement (cm) - Width 2.1 1.8 1.7 -Post Debridement (cm) - Depth 0.1 0.1 0.1 -Total Square (Post) (cm) 8.19 6.48 5.78 -Area of Debridement (cm) - Length 3.9 3.6 3.4 -Area of Debridement (cm) - Width 2.1 1.8 1.7 -Total Square (Area) (cm) 8.19 6.48 5.78 -Tunneling No No No -Undermining/Tunneling No No No -Circular Undermining No No No -Wound/Ulcer Outcome Not Healed Not Healed Not Healed -Ulcer Cleansing Rinsed/ Rinsed/ Rinsed/ Irrigated with Irrigated with Irrigated with Saline Saline Saline -Foul Odor after Cleansing No No No -Bioengineered Tissue Yes Yes Yes -Type of Bioengineered Tissue Apligraf Apligraf Apligraf -Expiration Date 09/02/20 09/02/20 09/09/20 -Product Lot Number [id number] -Percent Used 100 100 100 -Lot number of Saline Used [id number] -Bleeding Controlled with Pressure Pressure Pressure -Treatment Response Procedure Procedure Procedure Tolerated Well Tolerated Well Tolerated Well -Debridement - Subq, 1st 20sq cm No No No -Apply Skin Sub - 1st 25 sq cm - Legs 1 1 1 -Apligraf (per sq cm) 44 44 44 -NuShield 16mm Disc Pain Scale: 0-10 Numeric Is Patient Pain Free? Yes Yes 09/19/20 13:41 Wound Center Nurse 2 #1 LLE Post -Time 10:49 -Correct Patient Yes -Correct Side, Site, Position Yes -Correct Procedure Yes -Procedure Performed Yes -Type of Procedure Debridement -Clinical Debridement Subcutaneous -Tissue Removed Subcutaneous -Post Debridement (cm) - Length 1.8 -Post Debridement (cm) - Width 1.0 -Post Debridement (cm) - Depth 0.1 -Total Square (Post) (cm) 1.80 -Area of Debridement (cm) - Length 1.8 -Area of Debridement (cm) - Width 1.0 -Total Square (Area) (cm) 1.80 -Tunneling No -Undermining/Tunneling No -Circular Undermining No -Wound/Ulcer Outcome Not Healed -Ulcer Cleansing Rinsed/ Irrigated with Saline -Foul Odor after Cleansing No -Bioengineered Tissue Yes -Type of Bioengineered Tissue NuShield Disc -Expiration Date 12/19/24 -Product Lot Number [id number] -Percent Used 100 -Lot number of Saline Used [id number] -Bleeding Controlled with Pressure -Treatment Response Procedure Tolerated Well -Debridement - Subq, 1st 20sq cm No -Apply Skin Sub - 1st 25 sq cm - Legs 1 -Apligraf (per sq cm) -NuShield 16mm Disc 2 Pain Scale: 0-10 Numeric Is Patient Pain Free? Yes - Nurse 3 - General Ulcer D/C NN Start: 08/22/20 10:48 Freq: Status: Active Protocol: Activity Type Activity Date Activity User E-Sign Co-Sign Detail Recorded Client Recorded Date Recorded By Document 08/22/20 15:37 PL [id number] 08/22/20 15:37 PL Document 08/29/20 10:28 MS [id number] 08/29/20 10:30 MS Document 09/05/20 10:27 BMF [id number] 09/05/20 10:28 BMF Document 09/12/20 12:04 RB [id number] 09/12/20 12:06 RB Document 09/19/20 11:15 [facility] [id number] 09/19/20 11:16 BMF 08/22/20 08/29/20 09/05/20 15:37 10:28 10:27 Wound Care Nurse 3 #1 LLE Post -Primary Dressing Applied -Other Dressing adaptic touch apligraph -Primary Dressing Covered/Secured with Dry Gauze Dry Gauze,Other -Other Covering unna boot per k ruminski flight information expediter Left -Multi-Layered Wrap Application Multi-Layer Unna Boot - Unna Boot - Comp - Left ($) Left ($) Left ($) -Compression Wrap Unna Boot ($) ( single) -Other unna per k ruminski flight information expediter Treatment Response Procedure Tolerated Well Vital Signs Temperature (97.8 F-99.1 F) Temperature Source Pulse Rate (60-100) Pulse Location Respiratory Rate (12-18) Respiratory rate source Blood Pressure (90/60-120/80) Blood Pressure Mean (mm Hg) Source Position Blood Pressure Location Pain Scale: 0-10 Numeric Is Patient Pain Free? Yes Yes Yes WC - Visit Discharge Discharge Condition Stable Ambulatory Status Ambulatory Transportation Private Auto Accompanied by Medication Reconcilliation completed & provided to patient/care provider Clinical Summary of Care Provided 09/12/20 09/19/20 12:04 11:15 Wound Care Nurse 3 #1 LLE Post -Primary Dressing Applied Other -Other Dressing apligraf intact nushield ,steristrips intact -Primary Dressing Covered/Secured with Dry Gauze Other -Other Covering unna boot Left -Multi-Layered Wrap Application Unna Boot - Unna Boot - Left ($) Left ($) -Compression Wrap Unna Boot ($) ( single) -Other Treatment Response Procedure Procedure Tolerated Well Tolerated Well Vital Signs Temperature (97.8 F-99.1 F) 97.6 F L Temperature Source Temporal Pulse Rate (60-100) 79 Pulse Location Monitor Respiratory Rate (12-18) 18 Respiratory rate source Observation Blood Pressure (90/60-120/80) 148/93 H Blood Pressure Mean (mm Hg) 111 Source Monitor Position Sitting Blood Pressure Location Left Arm Pain Scale: 0-10 Numeric Is Patient Pain Free? Yes WC - Visit Discharge Discharge Condition Stable Stable Ambulatory Status Ambulatory Ambulatory Transportation Private Auto Private Auto Accompanied by Medication Reconcilliation completed & No provided to patient/care provider Clinical Summary of Care Provided Yes Wound debrided: Left posterior calf Laterality: Left Type of Debridement: Excisional debridement Anesthesia Used: 4% Lidocaine Solution Depth: in the subcutaneous layer Percentage of wound debrided: 100 Instrument Used: 5mm curette Tissue Removed: Slough and devitalized tissue Severity: Fat Layer Exposed Amount of bleeding with debridement: Mild Bleeding Controlled with: Pressure Patient tolerated procedure: Patient tolerated procedure well
== END 2020-09-19 23:59 ==
LOC: WC 10:15
PROVIDERS: PCP Family Medicine; Referring Provider Nurse Practitioner Family; Visit Provider Nurse Practitioner Family
DX: E11.622 Type 2 diabetes mellitus with other skin ulcer (principal); E78.5 Hyperlipidemia, unspecified; I10 Essential (primary) hypertension; L97.222 Non-pressure chronic ulcer of left calf with fat layer exposed; I48.0 Paroxysmal atrial fibrillation; Z86.73 Personal history of transient ischemic attack (TIA), and cerebral infarction without residual deficits; Z79.01 Long term (current) use of anticoagulants
CPT/HCPCS: 15271; 29580; 29581; Q4101; Q4160; Q4186

== ENCOUNTER 2020-10-10 10:30 | Outpatient (RCR) | payer MEDICARE, BC, OTHER, SELFPAY ==
[2020-09-20 00:43] VITALS: BP 142/90; PULSE 75; RESP 18; TEMP 36.2
[2020-09-26 11:18] VITALS: BP 153/78; PULSE 102; TEMP 36.2; BMI 27.4
[2020-10-03 10:52] VITALS: BP 143/100; PULSE 102; RESP 18; TEMP 36.2; BMI 27.4
--- NOTE | 2020-10-03 14:50 | PCM.WC.PN ---
History of Present Illness Date of Service: 10/03/20 Chief Complaint: Left calf ulcer History of Wound: The patient presents to the wound healing center today (07/11/2020) for an initial evaluation of his left calf ulcer. He sees Dr. Masters for his primary care management, and was referred to the wound healing center by her. Patient has a past medical history significant for type 2 diabetes mellitus, essential hypertension, hyperlipidemia, paroxysmal atrial fibrillation, ischemic stroke, and chronic anticoagulation with warfarin. Patient states that around March or April 2020, he developed an ulceration of his left calf. He is unsure of any causative events/factors. The ulcer was present for several weeks before he sought treatment. His primary care provider had him using triple antibiotic ointment and nonadherent dressings for wound care. He has not been on any recent antibiotics. He denies drainage from his ulcer. The patient denies any fever, chills, nausea, vomiting, or diarrhea. Denies any increasing pain, redness, swelling, or purulent/malodorous drainage from affected area. Progress of Wound: Patient returns for reassessment of his left calf ulcer. The ulcer is healed today. However, the patient has a small ulceration present on his proximal left calf from rubbing against the Unna boot wrap. The patient denies fever, chills, nausea, vomiting, or diarrhea. The patient has not had increased redness, swelling, or purulent/malodorous drainage from affected area. Objective Data Objective Data Vital Signs: Vital Signs Temp Pulse Resp BP 97.2 F L 102 H 18 143/100 H 10/03/20 10:52 10/03/20 10:52 10/03/20 10:52 10/03/20 10:52 Weight: 185 lb 13.683 oz Body Mass Index (BMI) 27.4 Assessment & Plan Assessment/Plan (1) Diabetic ulcer of left lower leg: (2) Chronic anticoagulation: (3) Essential hypertension: (4) Paroxysmal atrial fibrillation: (5) Diabetes mellitus, type II: QUALIFIERS: Diabetes mellitus complication status: with skin complications Diabetes mellitus complication detail: with other skin ulcer Diabetes mellitus alf insulin use: without alf use Qualified Code(s): E11.622 - Type 2 diabetes mellitus with other skin ulcer (6) HLD (hyperlipidemia): QUALIFIERS: Hyperlipidemia type: unspecified Qualified Code(s): E78.5 - Hyperlipidemia, unspecified (7) Ulcer of left lower extremity with fat layer exposed: PLAN: The patient's original presenting ulcer (posterior left calf ulcer) is healed today. The patient has a small new ulceration of the proximal left posterior calf from friction/shearing of the Unna boot against his left lower extremity. Debridement performed today in clinic. Hydrogel and gauze applied to the new proximal left posterior calf ulcer. At home wound-care instructions: Begin daily dressing changes with Santyl (nickel thick layer) and gauze. Shower daily, cleansing the area with antibacterial soap and water, and applying a clean dressing following cleansing. If/when Santyl runs out, change to daily hydrogel dressings. Double Tubigrip's applied to the left lower extremity today. Double Tubigrip should be worn to the left lower extremity daily, taking caution not to allow this seems of the Tubigrip's to rub against the ulcer site. Off-loading: Avoid pressure at the site of the ulcer when seated. Avoid prolonged standing/dangling of legs. When seated, elevate feet at chest level. Walking is encouraged. Diet: Patient encouraged to increase protein and vitamin C intake while taking caution to avoid high carbohydrate and/or sugar intake. Labs/cultures/imaging: Doxycycline completed. No further antibiotics are warranted at this time. Routine baseline labwork (CBCD, CMP, hemoglobin A1c, CRP) revealed the following: CRP 13.7 (H), alk phos 159 (H), glucose 198 (H), creatinine 1.32 (H), estimated GFR 56 (L), hemoglobin A1c 7.7% (H). Bilateral lower extremity venous studies revealed numerous areas of venous incompetence, and patient was referred to vascular. He has not yet been seen by vascular. Follow-up: Return to clinic in 1 week for reevaluation with a provider. Patient was instructed to return sooner or report to the emergency room should symptoms worsen, or new symptoms arise. Note: [employer] speech recognition adoption social worker software was used to create portions of this document. Sound-alike and misspelled words, as well as other adoption social worker errors may be contained in the documentation. Charges/Coding Procedures Integumentary [id number]: [id number] Yadira subq tissue 20 sq cm/< Physical Exam Const alert, no apparent distress and healthy appearing General Appearance: cooperative, comfortable and well kempt HEENT Head and Scalp: normocephalic and atraumatic Neck supple and no JVD Resp normal respiratory effort, normal air movement and no use of accessory muscles GI non-distended Extremity normal capillary refill, no joint enlargement, no calf tenderness and no pedal edema General Extremity: Negative for clubbing or cyanosis Peripheral Pulses: Yes dorsalis pedis pulses present left 2+ Skin Wounds: wounds noted No drainage, No malodorous and No surrounding erythema Wound Narrative: Original left lower extremity ulcer is healed today. He now has a small proximal left calf ulcer with a small amount of slough and devitalized tissue present; no periulcer erythema, warmth or tenderness. No malodorous or purulent drainage. Neuro moves all extremities Sensorium / Orientation: awake and alert Psych mental status grossly normal, cooperative and affect normal Appearance: grossly normal Debridement Note Debridement Note Post-Debridement Measurements and Additional Note: Post-Debridement Measurements/Treatment - Nurse 1 - General Ulcer Assessment Start: 09/26/20 11:18 Freq: Status: Active Protocol: DOREEN Activity Type Activity Date Activity User E-Sign Co-Sign Detail Recorded Client Recorded Date Recorded By Document 09/26/20 11:18 KR [id number] 09/26/20 11:19 KR Document 10/03/20 10:52 DL [id number] 10/03/20 10:59 DL 09/26/20 10/03/20 11:18 10:52 - Today's Visit Information Type of service Nurse-only Follow-up Visit Visit (Physician/MANUSCRIPT READER ) Arrival Mode Ambulatory Ambulatory Transfer Assistance None Patient Identification Verified (Name & Yes Yes ) Patient Requires Transmission-Based No Precautions Safety Precautions NA Height and Weight Body Mass Index (BMI) 27.4 27.4 BMI Classification Overweight Overweight Vital Signs Temperature (97.8 F-99.1 F) 97.1 F L 97.2 F L Temperature Source Temporal Temporal Pulse Rate (60-100) 102 H 102 H Pulse Location Monitor Monitor Respiratory Rate (12-18) 18 Respiratory rate source Observation Blood Pressure (90/60-120/80) 153/78 H 143/100 H Blood Pressure Mean (mm Hg) 103 114 Source Monitor Monitor Position Semi-Fowlers Blood Pressure Location Left Arm History Since Last Visit- (Skip if this is Patient's initial visit) Have you changed medications since your No No last visit? Any new allergies or adverse reactions No No Had a fall/change in ADL's that may No No increase risk of falls Signs or symptoms of abuse and/or No No neglect since last visit Have you been in the hospital since your No No last visit? Has dressing in place as prescribed Yes Yes Has compression in place as prescribed Yes Yes Has offloadiing in place as prescribed N/A N/A Experienced any changes in pain level or No No management Left Footwear Regular Shoe Right Footwear Regular Shoe Pain Scale: 0-10 Numeric Is Patient Pain Free? Yes Yes WC - Nurse 1 - General Ulcer Measurement Start: 09/26/20 11:18 Freq: Status: Active Protocol: Activity Type Activity Date Activity User E-Sign Co-Sign Detail Recorded Client Recorded Date Recorded By Document 10/03/20 10:52 DL [id number] 10/03/20 10:59 DL 10/03/20 10:52 Wound Center Nurse 1 #2 LLE Sup -Current Size (cm) - Length 0.5 -Current Size (cm) - Width 0.6 -Current Size (cm) - Depth 0.1 -Total Square Cm 0.30 -Photo Taken Yes -Exudate Amt None Present -Granulation Amt None Present (0 %) -Necrosis Amt Small (1-33%) -Necrotic Tissue Type Adherent Slough -Structure Exposed N/A -Texture (Tasneem-wound Skin Appearance) Scarring -Moisture (Tasneem-wound Skin Appearance) No Abnormality -Color (Tasneem-wound Skin Appearance) Erythema -Temperature (Tasneem-wound Skin No Abnormality Appearance) (Pt Warm) -Tenderness on Palpation (Tasneem-wound No Skin Appearance) -Ulcer Cleansing Wound Cleanser -Foul Odor after Cleansing No -Anesthetic Used 4% Lidocaine Solution #1 LLE Post -Current Size (cm) - Length 0.1 -Current Size (cm) - Width 0.1 -Current Size (cm) - Depth 0.1 -Total Square Cm 0.01 -Photo Taken Yes -Exudate Amt None Present -Wound Margin Flat & Intact -Granulation Amt Large (67-100%) -Granulation Quality [place] -Necrosis Amt None Present (0 %) -Structure Exposed N/A -Texture (Tasneem-wound Skin Appearance) Scarring -Moisture (Tasneem-wound Skin Appearance) No Abnormality -Color (Tasneem-wound Skin Appearance) No Abnormality -Temperature (Tasneem-wound Skin No Abnormality Appearance) (Pt Warm) -Tenderness on Palpation (Tasneem-wound No Skin Appearance) -Ulcer Cleansing Wound Cleanser -Foul Odor after Cleansing No -Anesthetic Used 4% Lidocaine Solution Left Calf (cm) 34.1 Left Ankle (cm) 20 WC - Nurse 2 - General Ulcer CM Notes Start: 09/26/20 11:18 Freq: Status: Active Protocol: Activity Type Activity Date Activity User E-Sign Co-Sign Detail Recorded Client Recorded Date Recorded By Document 10/03/20 11:18 JF [id number] 10/03/20 11:26 [id number] 10/03/20 11:18 Wound Center Nurse 2 #2 LLE Sup -Time 11:19 -Correct Patient Yes -Correct Side, Site, Position Yes -Correct Procedure Yes -Procedure Performed Yes -Type of Procedure Debridement -Clinical Debridement Subcutaneous -Tissue Removed Subcutaneous -Post Debridement (cm) - Length 0.5 -Post Debridement (cm) - Width 2 -Post Debridement (cm) - Depth 0.1 -Total Square (Post) (cm) 1.0 -Area of Debridement (cm) - Length 0.5 -Area of Debridement (cm) - Width 2 -Total Square (Area) (cm) 1.0 -Tunneling No -Undermining/Tunneling No -Circular Undermining No -Wound/Ulcer Outcome Not Healed -Ulcer Cleansing Rinsed/ Irrigated with Saline -Foul Odor after Cleansing No -Bioengineered Tissue No -Bleeding Controlled with Pressure -Offloading No -Treatment Response Procedure Tolerated Well -Debridement - Subq, 1st 20sq cm Yes #1 LLE Post -Correct Patient No -Correct Side, Site, Position No -Correct Procedure No -Procedure Performed No -Post Debridement (cm) - Length 0 -Post Debridement (cm) - Width 0 -Post Debridement (cm) - Depth 0 -Total Square (Post) (cm) 0 -Area of Debridement (cm) - Length 0 -Area of Debridement (cm) - Width 0 -Total Square (Area) (cm) 0 -Wound/Ulcer Outcome Healed- Epithelialized Pain Scale: 0-10 Numeric Is Patient Pain Free? Yes WC - Nurse 3 - General Ulcer D/C NN Start: 09/26/20 11:18 Freq: Status: Active Protocol: Activity Type Activity Date Activity User E-Sign Co-Sign Detail Recorded Client Recorded Date Recorded By Document 09/26/20 12:13 KR [id number] 09/26/20 12:13 KR Document 10/03/20 11:39 DL [id number] 10/03/20 11:40 DL 09/26/20 10/03/20 12:13 11:39 #2 LLE Sup -Ulcer Cleansing Rinsed/ Irrigated with Saline -Foul Odor after Cleansing No -Other Dressing nugel -Primary Dressing Covered/Secured with Dry Gauze & Roll Gauze, Secured with Tape Wound Care Nurse 3 Left -Multi-Layered Wrap Application Unna Boot - Left ($) -Size of Tubigrip Used Size D Treatment Response Procedure Tolerated Well Pain Scale: 0-10 Numeric Is Patient Pain Free? Yes Yes WC - Visit Discharge Discharge Condition Stable Stable Ambulatory Status Ambulatory Ambulatory Transportation Private Auto Private Auto Wound debrided: Left proximal calf ulcer Laterality: Left Type of Debridement: Excisional debridement Anesthesia Used: 5% Lidocaine Gel Depth: in the subcutaneous layer Percentage of wound debrided: 100 Instrument Used: 3mm curette Tissue Removed: Slough and devitalized tissue Severity: Fat Layer Exposed Amount of bleeding with debridement: Mild Bleeding Controlled with: Pressure Patient tolerated procedure: Patient tolerated procedure well
[2020-10-10 10:34] VITALS: BP 128/104; PULSE 105; RESP 16; BMI 27.4
--- NOTE | 2020-10-10 13:14 | PN.PCM_ITS ---
History of Present Illness Date of Service: 10/10/20 Chief Complaint: Left calf ulcer History of Wound: The patient presents to the wound healing center today (07/11/2020) for an initial evaluation of his left calf ulcer. He sees Dr. Masters for his primary care management, and was referred to the wound healing center by her. Patient has a past medical history significant for type 2 diabetes mellitus, essential hypertension, hyperlipidemia, paroxysmal atrial fibrillation, ischemic stroke, and chronic anticoagulation with warfarin. Patient states that around March or April 2020, he developed an ulceration of his left calf. He is unsure of any causative events/factors. The ulcer was present for several weeks before he sought treatment. His primary care provider had him using triple antibiotic ointment and nonadherent dressings for wound care. He has not been on any recent antibiotics. He denies drainage from his ulcer. The patient denies any fever, chills, nausea, vomiting, or diarrhea. Denies any increasing pain, redness, swelling, or purulent/malodorous drainage from affected area. Progress of Wound: Patient returns for reassessment of his left calf ulcer. The left calf ulcer remains healed today. The patient's proximal left calf ulcer is improved in size and appearance today. He has been using Santyl and hydrogel to this ulcer, and tolerating this well. He denies significant drainage from the ulcer. He has not been using double Tubigrip's for the past 2 days, and he has swelling today in his left lower extremity. The patient denies fever, chills, nausea, vomiting, or diarrhea. The patient has not had increased redness, swelling, or purulent/malodorous drainage from affected area. Objective Data Objective Data Vital Signs: Vital Signs Temp Pulse Resp BP 97.2 F L 105 H 16 128/104 H 10/03/20 10:52 10/10/20 10:34 10/10/20 10:34 10/10/20 10:34 Oxygen Delivery Method Room Air Weight: 185 lb 13.683 oz Body Mass Index (BMI) 27.4 Charges/Coding Procedures Integumentary 111xxx-113xx: 50345 Yadira subq tissue 20 sq cm/< Physical Exam Const alert, no apparent distress and healthy appearing General Appearance: cooperative, comfortable and well kempt HEENT Head and Scalp: normocephalic and atraumatic Neck supple and no JVD Resp normal respiratory effort, normal air movement and no use of accessory muscles GI non-distended Extremity normal capillary refill, no joint enlargement, no calf tenderness and no pedal edema General Extremity: Negative for clubbing or cyanosis Peripheral Pulses: Yes dorsalis pedis pulses present left 2+ Skin Wounds: wounds noted No drainage, No malodorous and No surrounding erythema Wound Narrative: Original left lower extremity ulcer is healed today. Proximal left calf ulcer with a small amount of slough and devitalized tissue present; no periulcer erythema, warmth or tenderness. No malodorous or purulent drainage. Neuro moves all extremities Sensorium / Orientation: awake and alert Psych mental status grossly normal, cooperative and affect normal Appearance: grossly normal Debridement Note Debridement Note Post-Debridement Measurements and Additional Note: Post-Debridement Measurements/Treatment - Nurse 1 - General Ulcer Assessment Start: 09/26/20 11:18 Freq: Status: Active Protocol: JUNE.MAYELA Activity Type Activity Date Activity User E-Sign Co-Sign Detail Recorded Client Recorded Date Recorded By Document 09/26/20 11:18 KR [id number] 09/26/20 11:19 KR Document 10/03/20 10:52 DL [id number] 10/03/20 10:59 DL Document 10/10/20 10:34 [facility] [id number] 10/10/20 10:36 BM 09/26/20 10/03/20 10/10/20 11:18 10:52 10:34 - Today's Visit Information Type of service Nurse-only Follow-up Visit Follow-up Visit Visit (Physician/SUPERVISOR CABINETMAKER (Physician/SUPERVISOR CABINETMAKER ) ) Arrival Mode Ambulatory Ambulatory Ambulatory Transfer Assistance None None Patient Identification Verified (Name & Yes Yes Yes ) Patient Requires Transmission-Based No No Precautions Safety Precautions NA Height and Weight Body Mass Index (BMI) 27.4 27.4 27.4 BMI Classification Overweight Overweight Overweight Vital Signs Temperature (97.8 F-99.1 F) 97.1 F L 97.2 F L Temperature Source Temporal Temporal Pulse Rate (60-100) 102 H 102 H 105 H Pulse Location Monitor Monitor Monitor Respiratory Rate (12-18) 18 16 Respiratory rate source Observation Observation Oxygen Delivery Method Room Air Blood Pressure (90/60-120/80) 153/78 H 143/100 H 128/104 H Blood Pressure Mean (mm Hg) 103 114 112 Source Monitor Monitor Monitor Position Semi-Fowlers Sitting Blood Pressure Location Left Arm Right Arm History Since Last Visit- (Skip if this is Patient's initial visit) Have you changed medications since your No No No last visit? Any new allergies or adverse reactions No No No Had a fall/change in ADL's that may No No No increase risk of falls Signs or symptoms of abuse and/or No No No neglect since last visit Have you been in the hospital since your No No No last visit? Has dressing in place as prescribed Yes Yes Yes Has compression in place as prescribed Yes Yes Yes Has offloadiing in place as prescribed N/A N/A N/A Experienced any changes in pain level or No No No management Left Footwear Regular Shoe Regular Shoe Right Footwear Regular Shoe Regular Shoe Pain Scale: 0-10 Numeric Is Patient Pain Free? Yes Yes Yes WC - Nurse 1 - General Ulcer Measurement Start: 09/26/20 11:18 Freq: Status: Active Protocol: Activity Type Activity Date Activity User E-Sign Co-Sign Detail Recorded Client Recorded Date Recorded By Document 10/03/20 10:52 DL [id number] 10/03/20 10:59 DL Document 10/10/20 10:34 [facility] [id number] 10/10/20 10:36 [facility] 10/03/20 10/10/20 10:52 10:34 Wound Center Nurse 1 #2 LLE Sup -Combined with other wound No -Current Size (cm) - Length 0.5 0.5 -Current Size (cm) - Width 0.6 1.5 -Current Size (cm) - Depth 0.1 0.1 -Total Square Cm 0.30 0.75 -Photo Taken Yes No -Epithelialization None Present -Tunneling No -Undermining/Tunneling No -Circular Undermining No -Exudate Amt None Present Small -Exudate Type Sanguineous -Granulation Amt None Present (0 Small (1-33%) %) -Granulation Quality Red -Slough/Fibrin Yes -Necrosis Amt Small (1-33%) Large (67-100%) -Necrotic Tissue Type Adherent Slough Eschar -Structure Exposed N/A -Texture (Tasneem-wound Skin Appearance) Scarring Assessed -Moisture (Tasneem-wound Skin Appearance) No Abnormality Assessed -Color (Tasneem-wound Skin Appearance) Erythema Assessed -Temperature (Tasneem-wound Skin No Abnormality No Abnormality Appearance) (Pt Warm) (Pt Warm) -Tenderness on Palpation (Tasneem-wound No No Skin Appearance) -Ulcer Cleansing Wound Cleanser Rinsed/ Irrigated with Saline -Foul Odor after Cleansing No No -Anesthetic Used 4% Lidocaine 5% Lidocaine Solution Gel #1 LLE Post -Current Size (cm) - Length 0.1 -Current Size (cm) - Width 0.1 -Current Size (cm) - Depth 0.1 -Total Square Cm 0.01 -Photo Taken Yes -Exudate Amt None Present -Wound Margin Flat & Intact -Granulation Amt Large (67-100%) -Granulation Quality Merlin -Necrosis Amt None Present (0 %) -Structure Exposed N/A -Texture (Tasneem-wound Skin Appearance) Scarring -Moisture (Tasneem-wound Skin Appearance) No Abnormality -Color (Tasneem-wound Skin Appearance) No Abnormality -Temperature (Tasneem-wound Skin No Abnormality Appearance) (Pt Warm) -Tenderness on Palpation (Tasneem-wound No Skin Appearance) -Ulcer Cleansing Wound Cleanser -Foul Odor after Cleansing No -Anesthetic Used 4% Lidocaine Solution Lower Limb Edema Present Yes Left Calf (cm) 34.1 37 Left Ankle (cm) 20 22 WC - Nurse 2 - General Ulcer CM Notes Start: 09/26/20 11:18 Freq: Status: Active Protocol: Activity Type Activity Date Activity User E-Sign Co-Sign Detail Recorded Client Recorded Date Recorded By Document 10/03/20 11:18 PARAMJIT [id number] 10/03/20 11:26 PARAMJIT 10/03/20 11:18 Wound Center Nurse 2 #2 LLE Sup -Time 11:19 -Correct Patient Yes -Correct Side, Site, Position Yes -Correct Procedure Yes -Procedure Performed Yes -Type of Procedure Debridement -Clinical Debridement Subcutaneous -Tissue Removed Subcutaneous -Post Debridement (cm) - Length 0.5 -Post Debridement (cm) - Width 2 -Post Debridement (cm) - Depth 0.1 -Total Square (Post) (cm) 1.0 -Area of Debridement (cm) - Length 0.5 -Area of Debridement (cm) - Width 2 -Total Square (Area) (cm) 1.0 -Tunneling No -Undermining/Tunneling No -Circular Undermining No -Wound/Ulcer Outcome Not Healed -Ulcer Cleansing Rinsed/ Irrigated with Saline -Foul Odor after Cleansing No -Bioengineered Tissue No -Bleeding Controlled with Pressure -Offloading No -Treatment Response Procedure Tolerated Well -Debridement - Subq, 1st 20sq cm Yes #1 LLE Post -Correct Patient No -Correct Side, Site, Position No -Correct Procedure No -Procedure Performed No -Post Debridement (cm) - Length 0 -Post Debridement (cm) - Width 0 -Post Debridement (cm) - Depth 0 -Total Square (Post) (cm) 0 -Area of Debridement (cm) - Length 0 -Area of Debridement (cm) - Width 0 -Total Square (Area) (cm) 0 -Wound/Ulcer Outcome Healed- Epithelialized Pain Scale: 0-10 Numeric Is Patient Pain Free? Yes WC - Nurse 3 - General Ulcer D/C NN Start: 09/26/20 11:18 Freq: Status: Active Protocol: Activity Type Activity Date Activity User E-Sign Co-Sign Detail Recorded Client Recorded Date Recorded By Document 09/26/20 12:13 KR [id number] 09/26/20 12:13 KR Document 10/03/20 11:39 DL [id number] 10/03/20 11:40 DL Document 10/10/20 11:29 DL [id number] 10/10/20 11:30 DL 09/26/20 10/03/20 10/10/20 12:13 11:39 11:29 #2 LLE Sup -Ulcer Cleansing Rinsed/ Rinsed/ Irrigated with Irrigated with Saline Saline -Foul Odor after Cleansing No No -Primary Dressing Applied Aquacel AG 2x2 -Other Dressing nugel -Primary Dressing Covered/Secured with Dry Gauze & Dry Gauze, Roll Gauze, Secured with Secured with Tape Tape -Aquacel AG 2x2 1 Wound Care Nurse 3 Left -Multi-Layered Wrap Application Unna Boot - Left ($) -Size of Tubigrip Used Size D -Other tubigrip Treatment Response Procedure Procedure Tolerated Well Tolerated Well Pain Scale: 0-10 Numeric Is Patient Pain Free? Yes Yes Yes WC - Visit Discharge Discharge Condition Stable Stable Stable Ambulatory Status Ambulatory Ambulatory Ambulatory Transportation Private Auto Private Auto Wound debrided: Proximal left calf ulcer Laterality: Left Type of Debridement: Excisional debridement Anesthesia Used: 5% Lidocaine Gel Depth: in the subcutaneous layer Percentage of wound debrided: 100 Instrument Used: 3mm curette Tissue Removed: Slough and devitalized tissue Severity: Fat Layer Exposed Amount of bleeding with debridement: Mild Bleeding Controlled with: Pressure Patient tolerated procedure: Patient tolerated procedure well Assessment/Plan Assessment/Plan (1) Diabetic ulcer of left lower leg: CODE(S): Code(s): E11.622 - Type 2 diabetes mellitus with other skin ulcer; L97.929 - Non-pressure chronic ulcer of unspecified part of left lower leg with unspecified severity (2) Chronic anticoagulation: CODE(S): Code(s): Z79.01 - termination clerk (current) use of anticoagulants (3) Essential hypertension: CODE(S): Code(s): I10 - Essential (primary) hypertension (4) Paroxysmal atrial fibrillation: CODE(S): Code(s): I48.0 - Paroxysmal atrial fibrillation (5) Diabetes mellitus, type II: CODE(S): Code(s): E11.9 - Type 2 diabetes mellitus without complications QUALIFIERS: Diabetes mellitus complication status: with skin complications Diabetes mellitus complication detail: with other skin ulcer Diabetes mellitus detention insulin use: without detention use Qualified Code(s): E11.622 - Type 2 diabetes mellitus with other skin ulcer (6) HLD (hyperlipidemia): CODE(S): Code(s): E78.5 - Hyperlipidemia, unspecified QUALIFIERS: Hyperlipidemia type: unspecified Qualified Code(s): E78.5 - Hyperlipidemia, unspecified (7) Ulcer of left lower extremity with fat layer exposed: CODE(S): Code(s): L97.922 - Non-pressure chronic ulcer of unspecified part of left lower leg with fat layer exposed PLAN: The patient's original presenting ulcer (posterior left calf ulcer) remains healed today. The proximal left posterior calf ulcer is improved in size and appearance today. Debridement performed today in clinic. Aquacel Ag applied to the new proximal left posterior calf ulcer. At home wound-care instructions: Begin daily dressing changes with Aquacel Ag dressing. Shower daily, cleansing the area with antibacterial soap and water, and applying a clean dressing following cleansing. Double Tubigrip's applied to the left lower extremity today. Double Tubigrip should be worn to the left lower extremity daily, taking caution not to allow this seams of the Tubigrip to rub against the ulcer site. Off-loading: Avoid pressure at the site of the ulcer when seated. Avoid prolonged standing/dangling of legs. When seated, elevate feet at chest level. Walking is encouraged. Diet: Patient encouraged to increase protein and vitamin C intake while taking caution to avoid high carbohydrate and/or sugar intake. Labs/cultures/imaging: Doxycycline completed. No further antibiotics are warranted at this time. Routine baseline labwork (CBCD, CMP, hemoglobin A1c, CRP) revealed the following: CRP 13.7 (H), alk phos 159 (H), glucose 198 (H), creatinine 1.32 (H), estimated GFR 56 (L), hemoglobin A1c 7.7% (H). Bilateral lower extremity venous studies revealed numerous areas of venous incompetence, and patient was referred to vascular. He has not yet been seen by vascular. Follow-up: Return to clinic in 2 weeks for reevaluation with a provider. Patient was instructed to return sooner or report to the emergency room should symptoms worsen, or new symptoms arise. Note: [employer] speech recognition qm consultant software was used to create portions of this document. Sound-alike and misspelled words, as well as other qm consultant errors may be contained in the documentation.
== END 2020-10-20 23:59 ==
LOC: WC 10:30
PROVIDERS: PCP Family Medicine; Referring Provider Nurse Practitioner Family; Visit Provider Nurse Practitioner Family
DX: E11.622 Type 2 diabetes mellitus with other skin ulcer (principal); L97.222 Non-pressure chronic ulcer of left calf with fat layer exposed; I10 Essential (primary) hypertension; E78.5 Hyperlipidemia, unspecified; I48.0 Paroxysmal atrial fibrillation; Z86.73 Personal history of transient ischemic attack (TIA), and cerebral infarction without residual deficits; Z79.01 Long term (current) use of anticoagulants
CPT/HCPCS: 11042; 29580

== ENCOUNTER 2020-11-14 09:15 | Outpatient (RCR) | payer MEDICARE, BC, OTHER, SELFPAY ==
[2020-10-21 00:28] VITALS: BP 128/104; PULSE 105; RESP 16; TEMP 36.2
--- NOTE | 2020-10-24 14:57 | PCM.WC.PN ---
History of Present Illness Date of Service: 10/24/20 Chief Complaint: Left calf ulcer History of Wound: The patient presents to the wound healing center today (07/11/2020) for an initial evaluation of his left calf ulcer. He sees Dr. Masters for his primary care management, and was referred to the wound healing center by her. Patient has a past medical history significant for type 2 diabetes mellitus, essential hypertension, hyperlipidemia, paroxysmal atrial fibrillation, ischemic stroke, and chronic anticoagulation with warfarin. Patient states that around March or April 2020, he developed an ulceration of his left calf. He is unsure of any causative events/factors. The ulcer was present for several weeks before he sought treatment. His primary care provider had him using triple antibiotic ointment and nonadherent dressings for wound care. He has not been on any recent antibiotics. He denies drainage from his ulcer. The patient denies any fever, chills, nausea, vomiting, or diarrhea. Denies any increasing pain, redness, swelling, or purulent/malodorous drainage from affected area. Progress of Wound: [place] reports for reassessment of his proximal left calf ulcer. The proximal left calf ulcer is improved in size and appearance today. He has been using Aquacel Ag dressing changes daily and tolerating this well. He denies significant drainage from the ulcer. He is using double Tubigrip's for compression. The patient denies fever, chills, nausea, vomiting, or diarrhea. The patient has not had increased redness, swelling, or purulent/malodorous drainage from affected area. Objective Data Objective Data Vital Signs: Vital Signs Temp Pulse Resp BP 97.2 F L 105 H 16 128/104 H 10/21/20 00:28 10/21/20 00:28 10/21/20 00:28 10/21/20 00:28 Weight: 185 lb 13.683 oz Body Mass Index (BMI) 27.4 Charges/Coding Procedures Integumentary 111xxx-113xx: 15413 Yadira subq tissue 20 sq cm/< Physical Exam Const alert, no apparent distress and healthy appearing General Appearance: cooperative, comfortable and well kempt HEENT Head and Scalp: normocephalic and atraumatic Neck supple and no JVD Resp normal respiratory effort GI non-distended Extremity normal capillary refill, no joint enlargement and no calf tenderness General Extremity: edema left lower extremity moderate (2+ pitting edema of left foot); Negative for clubbing or cyanosis Peripheral Pulses: Yes dorsalis pedis pulses present left 2+ Skin Wounds: wounds noted No drainage, No malodorous and No surrounding erythema Wound Narrative: Original left lower extremity ulcer remains healed today. Proximal left calf ulcer with subcutaneous layer exposed. There is a small amount of slough and devitalized tissue present; no periulcer erythema, warmth or tenderness. No malodorous or purulent drainage. No tunneling, undermining, or probing to bone. Neuro moves all extremities Sensorium / Orientation: awake and alert Psych mental status grossly normal, cooperative and affect normal Appearance: grossly normal Debridement Note Debridement Note Post-Debridement Measurements and Additional Note: Post-Debridement Measurements/Treatment WC - Nurse 2 - General Ulcer CM Notes Start: 10/24/20 13:46 Freq: Status: Active Protocol: Activity Type Activity Date Activity User E-Sign Co-Sign Detail Recorded Client Recorded Date Recorded By Document 10/24/20 13:47 PL [id number] 10/24/20 13:48 PL 10/24/20 13:47 Wound Center Nurse 2 #2 LLE Sup -Time 10:42 -Correct Patient Yes -Correct Side, Site, Position Yes -Correct Procedure Yes -Procedure Performed Yes -Type of Procedure Debridement -Clinical Debridement Subcutaneous -Tissue Removed Subcutaneous -Post Debridement (cm) - Length 0.2 -Post Debridement (cm) - Width 1.3 -Post Debridement (cm) - Depth 0.1 -Total Square (Post) (cm) 0.26 -Area of Debridement (cm) - Length 0.2 -Area of Debridement (cm) - Width 1.3 -Total Square (Area) (cm) 0.26 -Tunneling No -Undermining/Tunneling No -Circular Undermining No -Wound/Ulcer Outcome Not Healed -Ulcer Cleansing Rinsed/ Irrigated with Saline -Foul Odor after Cleansing No -Bioengineered Tissue No -Debridement - Subq, 1st 20sq cm Yes Pain Scale: 0-10 Numeric Is Patient Pain Free? Yes JUNE - Nurse 3 - General Ulcer D/C NN Start: 10/24/20 13:46 Freq: Status: Active Protocol: Activity Type Activity Date Activity User E-Sign Co-Sign Detail Recorded Client Recorded Date Recorded By Document 10/24/20 13:47 PL [id number] 10/24/20 13:48 PL 10/24/20 13:47 Is Patient Pain Free? Yes Wound Care Nurse 3 #2 LLE Sup -Ulcer Cleansing Rinsed/ Irrigated with Saline -Foul Odor after Cleansing No -Primary Dressing Applied Aquacel AG 4x4 -Primary Dressing Covered/Secured with Dry Gauze, Secured with Tape -Aquacel AG 4x4 1 WC - Visit Discharge Discharge Condition Stable Ambulatory Status Ambulatory Transportation Private [facility] Clinical Summary of Care Provided Yes Wound debrided: Proximal LLE ulcer Laterality: Left Type of Debridement: Excisional debridement Anesthesia Used: Cetacaine Depth: in the subcutaneous layer Percentage of wound debrided: 100 Instrument Used: 3mm curette Tissue Removed: Slough and devitalized tissue Severity: Fat Layer Exposed Amount of bleeding with debridement: Mild Bleeding Controlled with: Pressure Patient tolerated procedure: Patient tolerated procedure well Assessment/Plan Assessment/Plan (1) Diabetic ulcer of left lower leg: CODE(S): E11.622 - Type 2 diabetes mellitus with other skin ulcer; L97.929 - Non-pressure chronic ulcer of unspecified part of left lower leg with unspecified severity (2) Chronic anticoagulation: CODE(S): Z79.01 - tank terminal gauger (current) use of anticoagulants (3) Essential hypertension: CODE(S): I10 - Essential (primary) hypertension (4) Paroxysmal atrial fibrillation: CODE(S): I48.0 - Paroxysmal atrial fibrillation (5) Diabetes mellitus, type II: CODE(S): E11.9 - Type 2 diabetes mellitus without complications QUALIFIERS: Diabetes mellitus complication status: with skin complications Diabetes mellitus complication detail: with other skin ulcer Diabetes mellitus custodial insulin use: without custodial use Qualified Code(s): E11.622 - Type 2 diabetes mellitus with other skin ulcer (6) HLD (hyperlipidemia): CODE(S): E78.5 - Hyperlipidemia, unspecified QUALIFIERS: Hyperlipidemia type: unspecified Qualified Code(s): E78.5 - Hyperlipidemia, unspecified (7) Ulcer of left lower extremity with fat layer exposed: CODE(S): L97.922 - Non-pressure chronic ulcer of unspecified part of left lower leg with fat layer exposed PLAN: The patient's original presenting ulcer (posterior left calf ulcer) remains healed today. The proximal left posterior calf ulcer is improved in size and appearance today. Debridement performed today in clinic. Aquacel Ag applied to the new proximal left posterior calf ulcer. At home wound-care instructions: Begin daily dressing changes with Aquacel Ag dressing. Shower daily, cleansing the area with antibacterial soap and water, and applying a clean dressing following cleansing. Double Tubigrip's applied to the left lower extremity today. Double Tubigrip should be worn to the left lower extremity daily, taking caution not to allow this seams of the Tubigrip to rub against the ulcer site. Off-loading: Avoid pressure at the site of the ulcer when seated. Avoid prolonged standing/dangling of legs. When seated, elevate feet at chest level. Walking is encouraged. Diet: Patient encouraged to increase protein and vitamin C intake while taking caution to avoid high carbohydrate and/or sugar intake. Labs/cultures/imaging: Doxycycline completed. No further antibiotics are warranted at this time. Routine baseline lab work (CBCD, CMP, hemoglobin A1c, CRP) revealed the following: CRP 13.7 (H), alk phos 159 (H), glucose 198 (H), creatinine 1.32 (H), estimated GFR 56 (L), hemoglobin A1c 7.7% (H). Bilateral lower extremity venous studies revealed numerous areas of venous incompetence, and patient was referred to vascular. He has not yet been seen by vascular. Follow-up: Return to clinic in 1 week for reevaluation with a provider. Patient was instructed to return sooner or report to the emergency room should symptoms worsen, or new symptoms arise. Note: [employer] speech recognition computer graphic designer software was used to create portions of this document. Sound-alike and misspelled words, as well as other computer graphic designer errors may be contained in the documentation.
[2020-10-31 10:04] VITALS: BP 137/85; PULSE 94; RESP 18; TEMP 35.8; BMI 27.4
--- NOTE | 2020-10-31 12:34 | PN.PCM_ITS ---
History of Present Illness Date of Service: 10/31/20 Chief Complaint: Left calf ulcer History of Wound: The patient presents to the wound healing center today (07/11/2020) for an initial evaluation of his left calf ulcer. He sees Dr. Masters for his primary care management, and was referred to the wound healing center by her. Patient has a past medical history significant for type 2 diabetes mellitus, essential hypertension, hyperlipidemia, paroxysmal atrial fibrillation, ischemic stroke, and chronic anticoagulation with warfarin. Patient states that around March or April 2020, he developed an ulceration of his left calf. He is unsure of any causative events/factors. The ulcer was present for several weeks before he sought treatment. His primary care provider had him using triple antibiotic ointment and nonadherent dressings for wound care. He has not been on any recent antibiotics. He denies drainage from his ulcer. The patient denies any fever, chills, nausea, vomiting, or diarrhea. Denies any increasing pain, redness, swelling, or purulent/malodorous drainage from affected area. Progress of Wound: Clinton returns for reassessment of his proximal left calf ulcer. The proximal left calf ulcer is improved in size and appearance today. He has been using Aquacel Ag dressing changes daily and tolerating this well. He reports the ulcer becomes dry and scabbed during the week. He is using double Tubigrip's for compression. The patient denies fever, chills, nausea, vomiting, or diarrhea. The patient has not had increased redness, swelling, or purulent/malodorous drainage from affected area. Objective Data Objective Data Vital Signs: Vital Signs Temp Pulse Resp BP 96.4 F L 94 18 137/85 H 10/31/20 10:04 10/31/20 10:04 10/31/20 10:04 10/31/20 10:04 Weight: 185 lb 13.683 oz Body Mass Index (BMI) 27.4 Charges/Coding Procedures Integumentary [id number]: [id number] Yadira subq tissue 20 sq cm/< Physical Exam Const alert, no apparent distress and healthy appearing General Appearance: cooperative, comfortable and well kempt HEENT Head and Scalp: normocephalic and atraumatic Neck supple and no JVD Resp normal respiratory effort GI non-distended Extremity normal capillary refill, no joint enlargement and no calf tenderness General Extremity: edema left lower extremity mild; Negative for clubbing or cyanosis Peripheral Pulses: Yes dorsalis pedis pulses present left 2+ Skin Wounds: wounds noted No drainage, No malodorous and No surrounding erythema Wound Narrative: Original left lower extremity ulcer remains healed today. Proximal left calf ulcer with subcutaneous layer exposed. There is a small amount of slough and devitalized tissue present; no periulcer erythema, warmth or tenderness. No malodorous or purulent drainage. No tunneling, undermining, or probing to bone. Neuro moves all extremities Sensorium / Orientation: awake and alert Psych mental status grossly normal, cooperative and affect normal Appearance: grossly normal Debridement Note Debridement Note Post-Debridement Measurements and Additional Note: Post-Debridement Measurem ents/Treatment - Nurse 1 - General Ulcer Assessment Start: 10/24/20 13:46 Freq: Status: Active Protocol: PERLAEXBaylee Activity Type Activity Date Activity User E-Sign Co-Sign Detail Recorded Client Recorded Date Recorded By Document 10/31/20 10:04 HEVER [id number] 10/31/20 10:11 DL 10/31/20 10:04 WC - Today's Visit Information Type of service Follow-up Visit (Physician/[facility] ) Arrival Mode Ambulatory Transfer Assistance None Patient Identification Verified (Name & Yes ) Patient Requires Transmission-Based No Precautions Height and Weight Body Mass Index (BMI) 27.4 BMI Classification Overweight Vital Signs Temperature (97.8 F-99.1 F) 96.4 F L Temperature Source Temporal Pulse Rate (60-100) 94 Pulse Location Monitor Respiratory Rate (12-18) 18 Respiratory rate source Observation Blood Pressure (90/60-120/80) 137/85 H Blood Pressure Mean (mm Hg) 102 Source Monitor History Since Last Visit- (Skip if this is Patient's initial visit) Have you changed medications since your No last visit? Any new allergies or adverse reactions No Had a fall/change in ADL's that may No increase risk of falls Signs or symptoms of abuse and/or No neglect since last visit Has dressing in place as prescribed Yes Has compression in place as prescribed Yes Has offloadiing in place as prescribed N/A Experienced any changes in pain level or No management Pain Scale: 0-10 Numeric Is Patient Pain Free? Yes - Nurse 1 - General Ulcer Measurement Start: 10/24/20 13:46 Freq: Status: Active Protocol: Activity Type Activity Date Activity User E-Sign Co-Sign Detail Recorded Client Recorded Date Recorded By Document 10/31/20 10:04 DL [id number] 10/31/20 10:11 DL 10/31/20 10:04 Wound Center Nurse 1 #2 LLE Sup -Current Size (cm) - Length 0.1 -Current Size (cm) - Width 1 -Current Size (cm) - Depth 0.1 -Total Square Cm 0.1 -Photo Taken No -Exudate Amt None Present -Wound Margin Thickened -Granulation Amt Large (67-100%) -Granulation Quality [place] -Necrosis Amt Small (1-33%) -Necrotic Tissue Type Adherent Slough -Structure Exposed N/A -Texture (Tasneem-wound Skin Appearance) Scarring -Moisture (Tasneem-wound Skin Appearance) No Abnormality -Color (Tasneem-wound Skin Appearance) No Abnormality -Temperature (Tasneem-wound Skin No Abnormality Appearance) (Pt Warm) -Tenderness on Palpation (Tasneem-wound No Skin Appearance) -Ulcer Cleansing Rinsed/ Irrigated with Saline -Foul Odor after Cleansing Yes, Due to Product Use -Anesthetic Used 4% Lidocaine Solution Left Calf (cm) 34 Left Ankle (cm) 20.3 WC - Nurse 2 - General Ulcer CM Notes Start: 10/24/20 13:46 Freq: Status: Active Protocol: Activity Type Activity Date Activity User E-Sign Co-Sign Detail Recorded Client Recorded Date Recorded By Document 10/24/20 13:47 PL [id number] 10/24/20 13:48 PL 10/24/20 13:47 Wound Center Nurse 2 #2 LLE Sup -Time 10:42 -Correct Patient Yes -Correct Side, Site, Position Yes -Correct Procedure Yes -Procedure Performed Yes -Type of Procedure Debridement -Clinical Debridement Subcutaneous -Tissue Removed Subcutaneous -Post Debridement (cm) - Length 0.2 -Post Debridement (cm) - Width 1.3 -Post Debridement (cm) - Depth 0.1 -Total Square (Post) (cm) 0.26 -Area of Debridement (cm) - Length 0.2 -Area of Debridement (cm) - Width 1.3 -Total Square (Area) (cm) 0.26 -Tunneling No -Undermining/Tunneling No -Circular Undermining No -Wound/Ulcer Outcome Not Healed -Ulcer Cleansing Rinsed/ Irrigated with Saline -Foul Odor after Cleansing No -Bioengineered Tissue No -Debridement - Subq, 1st 20sq cm Yes Pain Scale: 0-10 Numeric Is Patient Pain Free? Yes WC - Nurse 3 - General Ulcer D/C NN Start: 10/24/20 13:46 Freq: Status: Active Protocol: Activity Type Activity Date Activity User E-Sign Co-Sign Detail Recorded Client Recorded Date Recorded By Document 10/24/20 13:47 PL [id number] 10/24/20 13:48 PL Document 10/31/20 10:42 DL [id number] 10/31/20 10:43 DL 10/24/20 10/31/20 13:47 10:42 Pain Scale: 0-10 Numeric Is Patient Pain Free? Yes Yes Wound Care Nurse 3 #2 LLE Sup -Ulcer Cleansing Rinsed/ Wound Cleanser Irrigated with Saline -Foul Odor after Cleansing No No -Primary Dressing Applied Aquacel AG 4x4 C Hydrogel ($) -Primary Dressing Covered/Secured with Dry Gauze, Dry Gauze, Secured with Secured with Tape Tape -Aquacel AG 4x4 1 WC - Visit Discharge Discharge Condition Stable Stable Ambulatory Status Ambulatory Ambulatory Transportation Private Auto Private Auto Clinical Summary of Care Provided Yes Wound debrided: LLE superior Laterality: Left Type of Debridement: Excisional debridement Anesthesia Used: 4% Lidocaine Solution Depth: in the subcutaneous layer Percentage of wound debrided: 100 Instrument Used: 3mm curette Tissue Removed: Slough and devitalized tissue Severity: Fat Layer Exposed Amount of bleeding with debridement: Mild Bleeding Controlled with: Pressure Patient tolerated procedure: Patient tolerated procedure well Assessment/Plan Assessment/Plan (1) Diabetic ulcer of left lower leg: CODE(S): E11.622 - Type 2 diabetes mellitus with other skin ulcer; L97.929 - Non-pressure chronic ulcer of unspecified part of left lower leg with unspecified severity (2) Chronic anticoagulation: CODE(S): Z79.01 - [facility] (current) use of anticoagulants (3) Essential hypertension: CODE(S): I10 - Essential (primary) hypertension (4) Paroxysmal atrial fibrillation: CODE(S): I48.0 - Paroxysmal atrial fibrillation (5) Diabetes mellitus, type II: CODE(S): E11.9 - Type 2 diabetes mellitus without complications QUALIFIERS: Diabetes mellitus complication status: with skin complications Diabetes mellitus complication detail: with other skin ulcer Diabetes mellitus buttermaker helper insulin use: without penitentiary use Qualified Code(s): E11.622 - Type 2 diabetes mellitus with other skin ulcer (6) HLD (hyperlipidemia): CODE(S): E78.5 - Hyperlipidemia, unspecified QUALIFIERS: Hyperlipidemia type: unspecified Qualified Code(s): E78.5 - Hyperlipidemia, unspecified (7) Ulcer of left lower extremity with fat layer exposed: CODE(S): L97.922 - Non-pressure chronic ulcer of unspecified part of left lower leg with fat layer exposed PLAN: The patient's original presenting ulcer (posterior left calf ulcer) remains healed today. The proximal left posterior calf ulcer is improved in size and appearance today. Debridement performed today in clinic. Hydrogel applied to the new proximal left posterior calf ulcer. At home wound-care instructions: Begin daily dressing changes with hydrogel and gauze dressing. Shower daily, cleansing the area with antibacterial soap and water, and applying a clean dressing following cleansing. Double Tubigrip's applied to the left lower extremity today. Double Tubigrip should be worn to t he left lower extremity daily, taking caution not to allow this seams of the Tubigrip to rub against the ulcer site. Off-loading: Avoid pressure at the site of the ulcer when seated. Avoid prolonged standing/dangling of legs. When seated, elevate feet at chest level. Walking is encouraged. Diet: Patient encouraged to increase protein and vitamin C intake while taking caution to avoid high carbohydrate and/or sugar intake. Labs/cultures/imaging: Doxycycline completed. No further antibiotics are warranted at this time. Routine baseline lab work (CBCD, CMP, hemoglobin A1c, CRP) revealed the following: CRP 13.7 (H), alk phos 159 (H), glucose 198 (H), creatinine 1.32 (H), estimated GFR 56 (L), hemoglobin A1c 7.7% (H). Bilateral lower extremity venous studies revealed numerous areas of venous incompetence, and patient was referred to vascular. He has not yet been seen by vascular. Follow-up: Return to clinic in 2 weeks for reevaluation with a provider. Patient was instructed to return sooner or report to the emergency room should symptoms worsen, or new symptoms arise. Note: [employer] speech recognition sales assistants and salespersons software was used to create portions of this document. Sound-alike and misspelled words, as well as other sales assistants and salespersons errors may be contained in the documentation.
[2020-11-14 09:53] VITALS: RESP 16; TEMP 35.5; BMI 27.4
--- NOTE | 2020-11-14 11:20 | PN.PCM_ITS ---
History of Present Illness Date of Service: 11/14/20 Chief Complaint: Left calf ulcer History of Wound: The patient presents to the wound healing center today (07/11/2020) for an initial evaluation of his left calf ulcer. He sees Dr. Masters for his primary care management, and was referred to the wound healing center by her. Patient has a past medical history significant for type 2 diabetes mellitus, essential hypertension, hyperlipidemia, paroxysmal atrial fibrillation, ischemic stroke, and chronic anticoagulation with warfarin. Patient states that around March or April 2020, he developed an ulceration of his left calf. He is unsure of any causative events/factors. The ulcer was present for several weeks before he sought treatment. His primary care provider had him using triple antibiotic ointment and nonadherent dressings for wound care. He has not been on any recent antibiotics. He denies drainage from his ulcer. The patient denies any fever, chills, nausea, vomiting, or diarrhea. Denies any increasing pain, redness, swelling, or purulent/malodorous drainage from affected area. Progress of Wound: Clinton returns for reassessment of his proximal left calf ulcer. He has been compliant with dressing changes and wound care. He is using double Tubigrip's for compression. The patient denies fever, chills or any new or worsening symptoms. His ulcer is healed today. Objective Data Objective Data Vital Signs: Vital Signs Temp Pulse Resp BP 95.9 F L 94 16 137/85 H 11/14/20 09:53 10/31/20 10:04 11/14/20 09:53 10/31/20 10:04 Weight: 185 lb 13.683 oz Body Mass Index (BMI) 27.4 Physical Exam Const alert, no apparent distress and healthy appearing General Appearance: cooperative, comfortable and well kempt HEENT Head and Scalp: normocephalic and atraumatic Neck supple and no JVD Resp normal respiratory effort GI non-distended Extremity normal capillary refill, no joint enlargement and no calf tenderness General Extremity: edema left lower extremity mild; Negative for clubbing or cyanosis Peripheral Pulses: Yes dorsalis pedis pulses present left 2+ Skin Wounds: Negative for wounds noted Wound Narrative: Ulcers of left lower extremity are healed today. There is some residual dryness of the proximal LLE site. Neuro moves all extremities Sensorium / Orientation: awake and alert Psych mental status grossly normal, cooperative and affect normal Appearance: grossly normal Debridement Note Debridement Note No debridement was completed: No debridement was completed today Assessment/Plan Assessment/Plan (1) Diabetic ulcer of left lower leg: CODE(S): E11.622 - Type 2 diabetes mellitus with other skin ulcer; L97.929 - Non-pressure chronic ulcer of unspecified part of left lower leg with unspecified severity (2) Chronic anticoagulation: CODE(S): Z79.01 - [facility] (current) use of anticoagulants (3) Essential hypertension: CODE(S): I10 - Essential (primary) hypertension (4) Paroxysmal atrial fibrillation: CODE(S): I48.0 - Paroxysmal atrial fibrillation (5) Diabetes mellitus, type II: CODE(S): E11.9 - Type 2 diabetes mellitus without complications QUALIFIERS: Diabetes mellitus complication status: with skin complications Diabetes mellitus complication detail: with other skin ulcer Diabetes mellitus regional intermodal truck driver insulin use: without senior living use Qualified Code(s): E11.622 - Type 2 diabetes mellitus with other skin ulcer (6) HLD (hyperlipidemia): CODE(S): E78.5 - Hyperlipidemia, unspecified QUALIFIERS: Hyperlipidemia type: unspecified Qualified Code(s): E78.5 - Hyperlipidemia, unspecified (7) Ulcer of left lower extremity with fat layer exposed: CODE(S): L97.922 - Non-pressure chronic ulcer of unspecified part of left lower leg with fat layer exposed PLAN: The patient's ulcers are healed today. No debridement performed. H ydrogel applied to the proximal left posterior calf area and covered with gauze. Tubigrips applied for compression. At home wound-care instructions: Continue hydrogel and gauze dressings to provide moisture to the residual area of dryness. Double Tubigrip should be worn to the left lower extremity daily for compression. Continue avoidance of prolonged standing/dangling of legs. When seated, c ontinue to elevate feet at chest level. Walking is encouraged. Follow-up with Vascular specialist is recommended. Follow-up: Return to the Wound Healing Center as needed should ulcers reopen or new wounds occur. Note: [employer] speech recognition customer relations representative software was used to create portions of this document. Sound-alike and misspelled words, as well as other customer relations representative errors may be contained in the documentation.
== END 2020-11-14 10:26 | disposition home or self-care (01) ==
LOC: WC 09:15
PROVIDERS: PCP Family Medicine; Referring Provider Nurse Practitioner Family; Visit Provider Nurse Practitioner Family
DX: E11.622 Type 2 diabetes mellitus with other skin ulcer (principal); I10 Essential (primary) hypertension; E78.5 Hyperlipidemia, unspecified; I48.0 Paroxysmal atrial fibrillation; Z79.01 Long term (current) use of anticoagulants; L97.222 Non-pressure chronic ulcer of left calf with fat layer exposed
CPT/HCPCS: 11042; 99213; G0463

== ENCOUNTER 2021-08-31 15:35 | Outpatient (CLI) | payer MEDICARE, BC, OTHER, SELFPAY ==
[2021-08-31 18:21] LABS: AST(SGOT) 33 U/L (15-37); Alanine Aminotransfer ALT/SGPT 45 U/L (16-61); Anion Gap 6 (5-15); BUN 20 mg/dL (7-18); BUN/Creat Ratio 16.9 RATIO (10-20); Calcium,Total 9.4 mg/dL (8.5-10.1); Chloride 100 mmol/L (98-107); Cholesterol 142 mg/dL (200); Creatinine, Serum 1.18 mg/dL (0.70-1.30); EST Glomerular Filtration Rate 64 mL/min (>60); Est Glom Filt Rate - Afr Amer 77 mL/min (>60); Glucose 136 mg/dL (74-106); High Density Lipoprotein 29 mg/dL; PSA,Total - Annual Screen 0.27 ng/mL (0.00-4.00); Potassium 3.9 mmol/L (3.5-5.1); Sodium Level 136 mmol/L (136-145); Triglycerides 221 mg/dL; Very Low Density Lipoprotein 44 mg/dL (5-40)
== END 2021-08-31 23:59 | disposition home or self-care (01) ==
LOC: MFPLAB 15:39
PROVIDERS: PCP Family Medicine; Referring Provider Family Medicine; Visit Provider Family Medicine
DX: E11.69 Type 2 diabetes mellitus with other specified complication (principal); Z12.5 Encounter for screening for malignant neoplasm of prostate
CPT/HCPCS: 36415; 80048; 80061; 84153; 84450; 84460; G0103

== ENCOUNTER 2021-09-02 12:38 | Outpatient (CLI) | payer MEDICARE, BC, OTHER, SELFPAY ==
[2021-09-02 16:20] LABS: Microalbumin,Random Urine 31.5 mg/L (NO RANGE EST.); Microalbumin:Creatinine Ratio 44.4 mg/g CRE (<30 mg/g CRE)
== END 2021-09-02 23:59 | disposition home or self-care (01) ==
LOC: LABSPEC 12:41
PROVIDERS: PCP Family Medicine; Referring Provider Family Medicine; Visit Provider Family Medicine
DX: E11.9 Type 2 diabetes mellitus without complications (principal)
CPT/HCPCS: 82043; 82570

== ENCOUNTER → 2022-01-12 | Outpatient (CLI) | payer MEDICARE, BC, OTHER, SELFPAY ==
--- NOTE | 2022-01-12 13:41 | ECHOD_ITS ---
[id number] ECHO^ECHOD^Echo Complete [id number] Reason For Study: Afib/Flutter Procedure This was a 2D Doppler, Color Flow transthoracic echocardiogram. The study was technically difficult. Exam performed in department. Left Ventricle Normal LV size. Apical false tendon noted. Based upon the 2D echocardiographic images obtained there appears to be normal left ventricular size with global left ventricular systolic dysfunction. The estimated ejection fraction is 35 %. Unable to assess diastolic dysfunction. Right Ventricle Normal RV size. Normal systolic function. Atria The left atrium is mildly enlarged. The right atrium is mildly enlarged. No doppler evidence for ASD. Mitral Valve There is no mitral annular calcification. Mild diffuse mitral valve thickening. Mild focal mitral valve calcification of the posterior leaflet. Moderate (2+) mitral valve insufficiency. Tricuspid Valve Normal tricuspid valve. Mild tricuspid valve insufficiency. Right ventricular systolic pressure estimated to be 35 mmHg. Aortic Valve Trisinus/trileaflet aortic valve. Moderate focal aortic valve calcification. Mild to moderate aortic stenosis. Trivial aortic valve insufficiency. Pulmonic Valve The pulmonic valve is not well visualized. Mild (1+) pulmonic valve insufficiency. Great Vessels Normal sized aortic root. Calcified aortic root. Pericardium/Pleural No pericardial effusion. MMode/2D Measurements & Calculations RVDd: 4.5 cm LVIDd: 3.3 cm FS: 10.1 % IVSd: 1.4 cm LVIDs: 3.0 cm LVPWd: 1.1 cm Ao root diam: 2.9 cm LAV(MOD-sp4): 71.9 ml Aortic Valve Planimetry: 1.2 cm2 LA dimension: 4.7 cm LA A4 area: 23.7 cm2 RA A4 area: 20.1 cm2 Doppler Measurements & Calculations MV E max girish: 76.3 cm/sec Ao V2 max: 123.0 cm/sec AI max girish: 316.9 cm/sec Ao max P.1 mmHg AI max P.3 mmHg AI dec slope: 75.8 cm/sec2 AI P1/2t: 1224 msec LV V1 max P.4 mmHg MR max girish: 366.1 cm/sec PA V2 max: 36.8 cm/sec LV V1 max: 76.2 cm/sec MR max P.6 mmHg TR max girish: 261.4 cm/sec PI dec slope: 198.3 cm/sec2 TR max P.3 mmHg ECHO/Echo Complete Interpretation Summary The study was technically difficult. Based upon the 2D echocardiographic images obtained there appears to be normal left ventricular size with global left ventricular systolic dysfunction. The estimated ejection fraction is 35 %. The left atrium is mildly enlarged. The right atrium is mildly enlarged. Mild diffuse mitral valve thickening. Mild focal mitral valve calcification of the posterior leaflet. Moderate (2+) mitral valve insufficiency. Mild tricuspid valve insufficiency. Moderate focal aortic valve calcification. Mild to moderate aortic stenosis. (By planimetry) Trivial aortic valve insufficiency. Mild (1+) pulmonic valve insufficiency. Calcified aortic root. Right ventricular systolic pressure estimated to be 35 mmHg. Unable to assess diastolic dysfunction. Ordering Physician: Gem Cuadra Referring Physician: Kasey Masters M.D. Performed By: Harsha Bobby RCS
== END | disposition home or self-care (01) ==
LOC: CVS 13:41
PROVIDERS: PCP Family Medicine; Referring Provider Nurse Practitioner Gerontology; Visit Provider Nurse Practitioner Gerontology
DX: I48.19 Other persistent atrial fibrillation (principal)
CPT/HCPCS: 93306

== ENCOUNTER → 2022-02-05 | Outpatient (CLI) | payer MEDICARE, BC, OTHER, SELFPAY ==
[2022-02-05 12:42] LABS: Anion Gap 8 (5-15); BUN 24 mg/dL (7-18); BUN/Creat Ratio 16.6 RATIO (10-20); Calcium,Total 9.7 mg/dL (8.5-10.1); Chloride 102 mmol/L (98-107); Creatinine, Serum 1.45 mg/dL (0.70-1.30); EST Glomerular Filtration Rate 50 mL/min (>60); Est Glom Filt Rate - Afr Amer 61 mL/min (>60); Glucose 217 mg/dL (74-106); Potassium 4.2 mmol/L (3.5-5.1); Sodium Level 138 mmol/L (136-145)
== END | disposition home or self-care (01) ==
LOC: MTLAB 10:17
PROVIDERS: PCP Family Medicine; Referring Provider Nurse Practitioner Gerontology; Visit Provider Nurse Practitioner Gerontology
DX: I10 Essential (primary) hypertension (principal)
CPT/HCPCS: 36415; 80048

== ENCOUNTER → 2022-02-23 | Outpatient (CLI) | payer MEDICARE, BC, OTHER, SELFPAY ==
--- NOTE | 2022-02-23 09:19 | ECHOL_ITS ---
Version 2 Reason For Study: CMP Procedure This was a limited 2D transthoracic echocardiogram. Limited views were obtained. Exam performed in department. Left Ventricle Normal LV size. Mild global left ventricular systolic dysfunction. The estimated ejection fraction is 40 %. Unable to assess diastolic dysfunction. Right Ventricle Normal RV size. Normal systolic function. Atria The left atrium is mildly enlarged. The right atrium is mildly enlarged. No doppler evidence for ASD. Mitral Valve There is no mitral annular calcification. Mild diffuse mitral valve thickening. Tricuspid Valve Normal tricuspid valve. Aortic Valve Trisinus/trileaflet aortic valve. Moderate focal aortic valve calcification. Pulmonic Valve The pulmonic valve is not well visualized. Mild-Moderate (1-2+) pulmonic valve insufficiency. Great Vessels Normal sized aortic root. Pericardium/Pleural No pericardial effusion. MMode/2D Measurements & Calculations LVIDd: 4.3 cm IVSd: 0.83 cm Ao root diam: 3.4 cm LVIDs: 3.9 cm LVPWd: 1.1 cm RVDd: 3.0 cm FS: 10.0 % LAV(MOD-bp): 105.2 ml LVAd ap4: 27.6 cm2 LVAd ap2: 26.6 cm2 LAV(MOD-bp) Indexed: 52.9 ml/m2 LVLd ap4: 7.8 cm LVLd ap2: 7.9 cm LAV(MOD-sp2): 106.0 ml EDV(MOD-sp4): 79.5 ml EDV(MOD-sp2): 76.8 ml LAV(MOD-sp4): 93.4 ml EDV(sp4-el): 83.1 ml EDV(sp2-el): 75.8 ml LVAs ap4: 20.9 cm2 LVAs ap2: 19.9 cm2 LVLs ap4: 7.3 cm LVLs ap2: 6.7 cm ESV(MOD-sp4): 50.6 ml ESV(MOD-sp2): 48.8 ml ESV(sp4-el): 50.6 ml ESV(sp2-el): 50.6 ml EF(MOD-sp4): 36.3 % EF(MOD-sp2): 36.4 % EF(sp4-el): 39.1 % SV(MOD-sp4): 28.8 ml SV(MOD-sp2): 27.9 ml SV(sp4-el): 32.5 ml LA dimension(2D): 4.8 cm LA A4 area: 28.0 cm2 RA A4 area: 24.0 cm2 ECHO/Echo, Limited Study Interpretation Summary Limited views were obtained. Mild global left ventricular systolic dysfunction. The estimated ejection fraction is 40 %. The left atrium is mildly enlarged. The right atrium is mildly enlarged. Mild diffuse mitral valve thickening. Moderate focal aortic valve calcification. Mild-Moderate (1-2+) pulmonic valve insufficiency. Unable to assess diastolic dysfunction. Ordering Physician: Gem Cuadra Referring Physician: Gem Cuadra Performed By: Sun Cárdenas RCS
[2022-02-23 12:49] LABS: Anion Gap 8 (5-15); BUN 27 mg/dL (7-18); Calcium,Total 9.8 mg/dL (8.5-10.1); Chloride 104 mmol/L (98-107); Creatinine, Serum 1.35 mg/dL (0.70-1.30); EST Glomerular Filtration Rate 55 mL/min (>60); Est Glom Filt Rate - Afr Amer 66 mL/min (>60); Glucose 174 mg/dL (74-106); Potassium 4.1 mmol/L (3.5-5.1); Sodium Level 140 mmol/L (136-145)
== END | disposition home or self-care (01) ==
PROVIDERS: PCP Family Medicine; Referring Provider Nurse Practitioner Gerontology; Visit Provider Nurse Practitioner Gerontology
DX: I11.0 Hypertensive heart disease with heart failure (principal); I50.21 Acute systolic (congestive) heart failure
CPT/HCPCS: 36415; 80048; 93308

== ENCOUNTER → 2022-09-01 | Outpatient (CLI) | payer MEDICARE, BC, OTHER, SELFPAY ==
[2022-09-01 18:19] LABS: AST(SGOT) 44 U/L (15-37); Alanine Aminotransfer ALT/SGPT 56 U/L (16-61); Albumin, Serum 3.5 g/dL (3.2-5.0); Alkaline Phosphatase 136 U/L (45-117); Anion Gap 5 (5-15); BUN 28 mg/dL (7-18); BUN/Creat Ratio 20.4 RATIO (10-20); Bilirubin, Direct 0.16 mg/dL (0.00-0.30); Calcium,Total 9.5 mg/dL (8.5-10.1); Chloride 104 mmol/L (98-107); Cholesterol 147 mg/dL (200); Creatinine, Serum 1.37 mg/dL (0.70-1.30); EST Glomerular Filtration Rate 54 mL/min (>60); Est Glom Filt Rate - Afr Amer 65 mL/min (>60); Globulin 3.6 g/dL (2.2-4.2); Glucose 169 mg/dL (74-106); High Density Lipoprotein 28 mg/dL; PSA,Total - Annual Screen 0.07 ng/mL (0.00-4.00); Potassium 4.1 mmol/L (3.5-5.1); Protein, Total 7.1 g/dL (6.4-8.2); Sodium Level 136 mmol/L (136-145); Triglycerides 231 mg/dL; Very Low Density Lipoprotein 46 mg/dL (5-40)
== END | disposition home or self-care (01) ==
LOC: MFPLAB 15:37
PROVIDERS: PCP Family Medicine; Referring Provider Family Medicine; Visit Provider Family Medicine
DX: E11.42 Type 2 diabetes mellitus with diabetic polyneuropathy (principal); Z12.5 Encounter for screening for malignant neoplasm of prostate
CPT/HCPCS: 36415; 80048; 80061; 80076; 83036; 84153; G0103

== ENCOUNTER → 2022-09-02 | Outpatient (CLI) | payer MEDICARE, BC, OTHER, SELFPAY ==
[2022-09-02 18:19] LABS: Microalbumin,Random Urine 16.7 mg/L (NO RANGE EST.); Microalbumin:Creatinine Ratio 16.5 mg/g CRE (<30 mg/g CRE)
== END | disposition home or self-care (01) ==
LOC: MFPLAB 16:28
PROVIDERS: PCP Family Medicine; Visit Provider Family Medicine
DX: E11.9 Type 2 diabetes mellitus without complications (principal)
CPT/HCPCS: 82043; 82570

== ENCOUNTER → 2023-06-09 | Outpatient (CLI) | payer MEDICARE, BC, OTHER, SELFPAY ==
--- OUTSIDE RECORDS SUMMARY | 2023-06-09 12:04 | XMS RPT_ITS | CCD ---
Author Name Unknown Address [address] [place] [address] Organization [facility] Results Test Name Value Interpretation Reference Range Facil ity Summary Purpose Family History No Family History Records Found Advance Directives No Advanced Directives Records Found Additional Source Comments (unrecognized sect ion and content) No Status Records Found INFORMATION SOURCE (unrecogn ized section and content) FOR RECORDS PERTAINING TO PATIENTS WHO ARE OR HAVE BEEN ENROLLED IN A CHEMICAL DEPENDENCY/SUBSTANCEABUSE PROGRAM, SOME INFORMATION MAY BE OMITTED. This clinical summary was aggregated from multiple sources. Caution should be exercised in using it in the provision of clinical care. This summary normalizes information from multiple sources, and as a consequence, information in this document may materially change the coding, format and clinical context of patient data. In addition, data may be omitted in some cases. CLINICAL DECISIONS SHOULD BE BASED ON THE PRIMARY CLINICAL RECORDS. [employer] provides no warranty or guarantee of the accuracy or completeness of information in this document.
[2023-06-09 12:21] LABS: Absolute Lymphocyte Count 1.62 X10^3/uL (0.83-4.51); Absolute Neutrophil Count 5.1 X10^3/uL (2.0-7.7); Basophil# 0.08 X10^3/uL; Eosinophil# 0.28 X10^3/uL; Eosinophils% 3.5 % (0-5); Hemoglobin 13.4 g/dL (13.0-16.5); Lymphocyte # 1.62 X10^3/ul (0.83-4.51); Lymphocyte % 20.4 % (19-41); Mean Corp Hgb Conc 32.7 g/dL (32-36); Mean Corpuscular Hgb 32.4 pg (27.0-32.0); Monocyte# 0.87 X10^3/uL; NRBC Flagged by Analyzer 0 % (0-5); Neutrophil # 5.06 X10^3/uL (2.7-7.7); Neutrophil % 63.8 % (47-70); Platelet Count 199 K/mm3 (150-450); RBC Distribution Width CV 14.8 % (11.6-14.6); RBC Distribution Width SD 54.3 fl (35.1-43.9); Red Blood Count 4.14 M/mm3 (4.6-6.2); White Blood Count 7.9 K/mm3 (4.4-11.0)
[2023-06-09 12:58] LABS: Anion Gap 6 (5-15); BUN 28 mg/dL (7-18); BUN/Creat Ratio 20.9 RATIO (10-20); Calcium,Total 9.4 mg/dL (8.5-10.1); Chloride 107 mmol/L (98-107); Creatinine, Serum 1.34 mg/dL (0.70-1.30); EST Glomerular Filtration Rate 55 mL/min (>60); Est Glom Filt Rate - Afr Amer 67 mL/min (>60); Glucose 136 mg/dL (74-106); Potassium 4.8 mmol/L (3.5-5.1); Sodium Level 139 mmol/L (136-145)
== END | disposition home or self-care (01) ==
PROVIDERS: PCP Family Medicine; Referring Provider Physician Assistant Medical; Visit Provider Physician Assistant Medical
DX: E78.5 Hyperlipidemia, unspecified (principal); I42.8 Other cardiomyopathies
CPT/HCPCS: 36415; 80048; 85025

== ENCOUNTER → 2024-06-07 | Outpatient (CLI) | payer MEDICARE, BC, OTHER, SELFPAY ==
[2024-06-07 12:44] LABS: AST(SGOT) 47 U/L (15-37); Alanine Aminotransfer ALT/SGPT 42 U/L (16-61); Albumin, Serum 3.2 g/dL (3.2-5.0); Alkaline Phosphatase 191 U/L (45-117); Anion Gap 6 (5-15); BUN 19 mg/dL (7-18); BUN/Creat Ratio 14.4 RATIO (10-20); Bilirubin, Direct 0.15 mg/dL (0.00-0.30); Calcium,Total 9.4 mg/dL (8.5-10.1); Chloride 101 mmol/L (98-107); Cholesterol 116 mg/dL (200); Creatinine, Serum 1.32 mg/dL (0.70-1.30); EST Glomerular Filtration Rate 56 mL/min (>60); Est Glom Filt Rate - Afr Amer 68 mL/min (>60); Globulin 4.1 g/dL (2.2-4.2); Glucose 230 mg/dL (74-106); High Density Lipoprotein 28 mg/dL; Potassium 4.1 mmol/L (3.5-5.1); Protein, Total 7.3 g/dL (6.4-8.2); Sodium Level 135 mmol/L (136-145); Triglycerides 164 mg/dL; Very Low Density Lipoprotein 33 mg/dL (5-40)
== END | disposition home or self-care (01) ==
LOC: LAB 11:29
PROVIDERS: PCP Family Medicine; Referring Provider Physician Assistant Medical; Visit Provider Physician Assistant Medical
DX: E11.69 Type 2 diabetes mellitus with other specified complication (principal)
CPT/HCPCS: 36415; 80048; 80061; 80076; 84443

== ENCOUNTER → 2024-06-19 | Outpatient (CLI) | payer MEDICARE, BC, OTHER, SELFPAY ==
--- NOTE | 2024-06-19 13:54 | ECHOD_ITS ---
Reason For Study: Dilated Cardiomyopathy Procedure This was a 2D Doppler, Color Flow transthoracic echocardiogram. Exam performed in department. Left Ventricle Normal LV size. The left ventricular ejection fraction is 40 %. There is mild to moderate global hypokinesis of the left ventricle. Right Ventricle Mildly dilated right ventricle. Normal systolic function. Atria The left atrium is moderately enlarged. The right atrium is moderately enlarged. Tricuspid Valve Normal tricuspid valve. Mild tricuspid valve insufficiency. Pulmonary artery systolic pressure is 30 mmHg. Aortic Valve Trisinus/trileaflet aortic valve. Moderate focal aortic valve calcification. Peak aortic valve gradient 9 mmHg. Trivial aortic valve insufficiency. Great Vessels Normal aortic root. The pulmonary artery is normal size. Inferior vena cava collapse with respiration. Pericardium/Pleural No pericardial effusion. MMode/2D Measurements & Calculations LVIDd: 4.1 cm IVSd: 1.00 cm LVOT diam: 2.0 cm LVIDs: 3.2 cm LVPWd: 0.89 cm LVOT area: 3.1 cm2 RVDd: 4.2 cm FS: 22.9 % Ao root diam: 3.2 cm LAV(MOD-bp): 83.0 ml LVAd ap4: 25.3 cm2 LAV(MOD-bp) Indexed: 41.4 ml/m2 LVLd ap4: 7.6 cm LAV(MOD-sp2): 75.2 ml EDV(MOD-sp4): 68.7 ml LAV(MOD-sp4): 86.8 ml EDV(sp4-el): 70.8 ml LVAs ap4: 18.5 cm2 LVLs ap4: 7.0 cm ESV(MOD-sp4): 43.0 ml ESV(sp4-el): 41.6 ml EF(MOD-sp4): 37.4 % EF(sp4-el): 41.3 % SV(MOD-sp4): 25.7 ml SV(sp4-el): 29.2 ml LA A4 area: 26.8 cm2 SI(MOD-sp4): 12.8 ml/m2 LA dimension(2D): 4.7 cm TAPSE: 1.4 cm RA A4 area: 26.8 cm2 Doppler Measurements & Calculations MV E max girish: 87.1 cm/sec MV V2 max: 90.3 cm/sec Ao V2 max: 152.2 cm/sec MV max P.3 mmHg Ao max P.3 mmHg MV V2 mean: 50.2 cm/sec Ao V2 mean: 112.7 cm/sec MV mean P.2 mmHg Ao mean P.7 mmHg MV V2 VTI: 19.8 cm Ao V2 VTI: 26.9 cm MVA(VTI): 2.1 cm2 AV (velocity ratio): 0.50 KATLYN(I,D): 1.5 cm2 KATLYN(V,D): 1.6 cm2 AI max girish: 382.5 cm/sec LV V1 max: 76.9 cm/sec SV(LVOT): 41.5 ml AI max P.7 mmHg LV V1 max P.4 mmHg AI dec slope: 177.1 cm/sec2 LV V1 mean P.5 mmHg AI P1/2t: 632.7 msec LV V1 mean: 58.1 cm/sec LV V1 VTI: 13.3 cm PA V2 max: 49.9 cm/sec TR max girish: 252.3 cm/sec TR max P.5 mmHg ECHO/Echo Complete Interpretation Summary The left ventricular ejection fraction is 40 %. Normal LV size. There is mild to moderate global hypokinesis of the left ventricle. Moderate focal aortic valve calcification. Aortic valve gradient may be underestimated due to the reduced ejection fractio n Ordering Physician: Mona Jose Referring Physician: Kasey Masters Performed By: Harsha Bobby RCS
== END | disposition home or self-care (01) ==
LOC: CVS 13:52
PROVIDERS: PCP Family Medicine; Referring Provider Family Medicine; Visit Provider Physician Assistant Medical
DX: R06.09 Other forms of dyspnea (principal)
CPT/HCPCS: 93306

== ENCOUNTER → 2024-11-20 | Outpatient (CLI) | payer MEDICARE, BC, OTHER, SELFPAY ==
--- NOTE | 2024-11-20 14:29 | RAD_ITS ---
PROCEDURE: HIP, UNI W/ PELVIS 2-3 VIEWS 11/20/2024 REASON FOR EXAM: PAIN AFTER A FALL ONTO HIS LEFT HIP TECHNIQUE: HIP, UNI W/ PELVIS 2-3 VIEWS COMPARISON: No FINDINGS: Lower lumbar spine scoliosis and degeneration. Mild bilateral hip osteoarthritis. Intact pelvic ring. No acute bone or soft tissue pathology. RAD/HIP, UNI W/ Pelvis 2-3 Views IMPRESSION: No acute left hip injury noted. [facility]
== END | disposition home or self-care (01) ==
LOC: MTRAD 14:27
PROVIDERS: PCP Family Medicine
DX: M25.552 Pain in left hip (principal)
CPT/HCPCS: 73502

== ENCOUNTER 2025-02-08 14:31 | Outpatient (CLI) | payer MEDICARE, BC, OTHER, SELFPAY ==
[2025-02-08 20:02] LABS: Creatinine, Urine (random) 102.00 mg/dL (39.00-259.00); Microalbumin,Random Urine < 12.0 mg/L (<20 mg/L)
== END 2025-02-08 23:59 | disposition home or self-care (01) ==
LOC: LABSPEC 14:32
PROVIDERS: PCP Family Medicine; Visit Provider Family Medicine
DX: E11.42 Type 2 diabetes mellitus with diabetic polyneuropathy (principal)
CPT/HCPCS: 82043; 82570